=== PATIENT | female | born 1960 | race Caucasian/White ===

== ENCOUNTER 2020-08-24 12:45 | Outpatient (REF) | payer MEDICAID, SELFPAY ==
--- NOTE | 2020-08-24 12:54 | XR_ITS ---
EXAMINATION: HAND RADIOGRAPHS, BILATERAL CLINICAL INFORMATION: Bilateral hand pain. COMPARISON: No priors. TECHNIQUE: AP, oblique, and lateral radiographs of the bilateral hands was performed. FINDINGS: No focal soft tissue swelling or periarticular osteopenia is seen. There is no joint space narrowing, osteophytosis or chondrocalcinosis. No erosions are seen. Mild bilateral negative ulnar variance. XR/XR hand RT min 3V IMPRESSION: No radiographic evidence of inflammatory or erosive arthropathy involving the hands.
--- NOTE | 2020-08-24 12:54 | XR_ITS ---
EXAMINATION: HAND RADIOGRAPHS, BILATERAL CLINICAL INFORMATION: Bilateral hand pain. COMPARISON: No priors. TECHNIQUE: AP, oblique, and lateral radiographs of the bilateral hands was performed. FINDINGS: No focal soft tissue swelling or periarticular osteopenia is seen. There is no joint space narrowing, osteophytosis or chondrocalcinosis. No erosions are seen. Mild bilateral negative ulnar variance. XR/XR hand LT min 3V IMPRESSION: No radiographic evidence of inflammatory or erosive arthropathy involving the hands.
== END 2020-08-24 12:46 | disposition home or self-care (01) ==
LOC: HO.XRAY 12:45
PROVIDERS: PCP Internal Medicine; Visit Provider Internal Medicine
DX: M79.642 Pain in left hand (principal); M79.641 Pain in right hand
CPT/HCPCS: 73130

== ENCOUNTER 2020-11-09 14:11 | Outpatient (REF) | payer MEDICAID, SELFPAY ==
--- NOTE | ~2020-11-09 | XR_ITS ---
EXAMINATION: XR CHEST CLINICAL INFORMATION: Right hand pain COMPARISON: Previous chest x-ray and chest CT July 2017 TECHNIQUE: 2 views of the chest were obtained. FINDINGS: The cardiac and mediastinal contours are stable. The lungs are clear. There is no pleural effusion or pneumothorax. There are degenerative changes of the spine. XR/XR chest 2V IMPRESSION: Unremarkable examination.
[2020-11-09 15:27] LABS: MANUAL DIFF FLAG NO
[2020-11-09 15:31] LABS: Basophils Absolute Auto 0.1 X10*3/uL (0.0-0.2); Basophils Percent Auto 0.4 % (0-2); Eosinophils Absolute Auto 0.4 X10*3/uL (0.0-0.4); Eosinophils Percent Auto 2.9 % (0-4); Hematocrit 39.9 % (37-47); Hemoglobin 12.9 g/dl (12.0-16.0); Imm Gran Abs Auto 0.05 X10*3/uL (0.00-0.03); Imm Gran Pct Auto 0.4 % (0.0-0.4); Lymphocytes Absolute Auto 2.9 X10*3/uL (1.2-4.9); Lymphocytes Percent Auto 24.1 % (20-40); Mean Corpuscular HGB Conc 32.3 g/dl (31.0-35.0); Mean Corpuscular Hemoglobin 27.3 pg (27.0-33.0); Mean Corpuscular Volume 84.5 fL (80-98); Mean Platelet Volume 10.7 fL (9.4-12.3); Monocytes Absolute Auto 0.7 X10*3/uL (0.1-1.2); Monocytes Percent Auto 5.6 % (2-11); Neutrophils Absolute Auto 8.1 X10*3/uL (2.0-8.3); Neutrophils Percent Auto 66.6 % (45-73); Platelet Count 220 X10*3/uL (160-400); Red Blood Count 4.72 X10*6/uL (4.20-5.50); Red Cell Distribution Width 14.6 % (11.0-16.0); White Blood Count 12.2 X10*3/uL (4.8-10.8)
[2020-11-09 15:55] LABS: Alanine Aminotransferase 9 U/L (0-31); Albumin Level 3.8 g/dL (3.5-5.0); Alkaline Phosphatase 104 U/L (39-117); Anion Gap 13 (12-20); Aspartate Amino Transferase 11 U/L (5-31); Bilirubin Total 0.2 mg/dL (0.0-1.0); Blood Urea Nitrogen 23 mg/dL (9-16); C Reactive Protein 0.18 mg/dL (< or = 0.50); Calcium 9.1 mg/dL (8.4-10.2); Carbon Dioxide 25 mmol/L (22-29); Chloride 109 mmol/L (96-108); Estimated Glomerular Filt Rate > 60; Glucose Random 104 mg/dL (60-115); Potassium 3.7 mmol/L (3.3-5.1); Rheumatoid Factor 120.8 IU/mL (<15.0); Sodium 143 mmol/L (135-145); Total Protein 6.7 g/dL (6.5-8.0)
[2020-11-09 16:29] LABS: Erythrocyte Sedimentation Rate 15 MM/HR (0-20)
[2020-11-10 04:56] LABS: HBS Num1 0.16 mIU/mL (0-7.99); HBc Num1 0.05 S/CO (0.00-0.79); Hepatitis A Antibody IgM 0.16 Index (0-0.79); Hepatitis B Core Antibody Nonreactive (Nonreactive); ~HepC Num1 0.06 S/CO (0.00-0.79); ~Hepatitis A Antibody IgM Nonreactive (Nonreactive); ~Hepatitis B Surface Antibody NONREACTIVE (Nonreactive); ~Hepatitis C Antibody Nonreactive (Nonreactive)
[2020-11-10 04:57] LABS: HBsAGNum1 0.19 S/CO (0.00-0.99); Hepatitis B Surface Antigen Negative (Negative)
[2020-11-10 22:17] LABS: Cyclic Citrullinated Peptide >250 UNITS
[2020-11-11 19:16] LABS: TS Negative Control Passed; TS Panel A 0; TS Panel B 0; TS Positive Control Passed; TSpotTB Negative (SeeBelow)
== END 2020-11-09 14:12 | disposition home or self-care (01) ==
LOC: HO.LAB 14:11
PROVIDERS: PCP Internal Medicine; Visit Provider Student in an Organized Health Care Education/Training Program
DX: M79.641 Pain in right hand (principal); M79.642 Pain in left hand
CPT/HCPCS: 36415; 71046; 80053; 84443; 85025; 85652; 86140; 86200; 86431; 86481; 86704; 86706; 86709; 86803; 87340; 99202

== ENCOUNTER 2020-11-13 08:14 | Outpatient (REF) | payer MEDICAID, SELFPAY ==
--- NOTE | ~2020-11-13 | MM_ITS ---
EXAMINATION: MM SCREENING DIGITAL BREAST TOMOSYNTHESIS, BILATERAL CLINICAL INFORMATION: Screening. Asymptomatic. The lifetime risk of breast cancer based on the Tyrer-Cuzick Model is 6.9%. COMPARISON: Mammography: April 27, 2018 and studies dating back to May 13, 2012 TECHNIQUE: Digital breast tomosynthesis is performed in both the craniocaudal and mediolateral oblique views along with computer-aided detection (CAD). Synthesized 2D images are generated from the tomosynthesis. FINDINGS: The breasts are heterogeneously dense, which may obscure small masses (ACR BI-RADS breast composition Category c). There are no significant masses, abnormal calcifications, or other abnormalities. MM/MM tomosynthesis screening BI IMPRESSION: There are no significant changes from prior study. ASSESSMENT: BI-RADS 1: Negative RECOMMENDATION: Routine annual mammography screening. This patient's information was entered into a reminder system with a target due date for their next mammogram.
== END 2020-11-13 08:15 | disposition home or self-care (01) ==
LOC: HO.MAMMO 08:14
PROVIDERS: PCP Internal Medicine; Visit Provider Internal Medicine
DX: Z12.31 Encounter for screening mammogram for malignant neoplasm of breast (principal)
CPT/HCPCS: 77063; 77067

== ENCOUNTER → 2020-12-15 12:31 | Outpatient (BNVA) | payer MEDICAID, SELFPAY | PROVIDERS: Visit Provider Student in an Organized Health Care Education/Training Program | DX: M05.9 Rheumatoid arthritis with rheumatoid factor, unspecified (principal) | CPT/HCPCS: 99212 ==

== ENCOUNTER 2021-11-19 09:19 | Outpatient (REF) | payer MEDICAID, SELFPAY ==
--- NOTE | ~2021-11-19 | MM_ITS ---
EXAMINATION: MM SCREENING DIGITAL BREAST TOMOSYNTHESIS, BILATERAL CLINICAL INFORMATION: Screening. Asymptomatic. The lifetime risk of breast cancer based on the Tyrer-Cuzick Model is 6%. COMPARISON: Mammography: 11/13/2020, 04/27/2018, 03/12/2017 TECHNIQUE: Digital breast tomosynthesis is performed in both the craniocaudal and mediolateral oblique views along with computer-aided detection (CAD). Synthesized 2D images are generated from the tomosynthesis. Additional right CC view is provided. FINDINGS: There are scattered areas of fibroglandular density (ACR BI-RADS breast composition Category b). There are no significant masses, abnormal calcifications, or other abnormalities. Parenchymal pattern is similar to prior studies. There is no developing density or architectural abnormality. The axilla and skin contours are unremarkable. No significant changes. MM/MM tomosynthesis screening BI IMPRESSION: No mammographic evidence of malignancy. ASSESSMENT: BI-RADS 1: Negative RECOMMENDATION: Routine annual mammography screening. This patient's information was entered into a reminder system with a target due date for their next mammogram.
== END 2021-11-19 09:20 | disposition home or self-care (01) ==
LOC: HO.MAMMO 09:19
PROVIDERS: Visit Provider Internal Medicine
DX: Z12.31 Encounter for screening mammogram for malignant neoplasm of breast (principal)
CPT/HCPCS: 77063; 77067

== ENCOUNTER 2022-12-30 11:45 | Outpatient (REF) | payer MEDICAID, SELFPAY ==
--- NOTE | ~2022-12-30 | MM_ITS ---
EXAMINATION: MM SCREENING DIGITAL BREAST TOMOSYNTHESIS, BILATERAL CLINICAL INFORMATION: Screening. Asymptomatic. The lifetime risk of breast cancer based on the Tyrer-Cuzick Model is 7%. COMPARISON: Mammography: 11/19/2021, 11/13/2020, 04/27/2018 TECHNIQUE: Digital breast tomosynthesis is performed in both the craniocaudal and mediolateral oblique views along with computer-aided detection (CAD). Synthesized 2D images are generated from the tomosynthesis. FINDINGS: There are scattered areas of fibroglandular density (ACR BI-RADS breast composition Category b). There are no significant masses, abnormal calcifications, or other abnormalities. No architectural abnormality or developing density or significant change from prior studies. The axilla and skin contours are unremarkable. MM/MM tomosynthesis screening BI IMPRESSION: No mammographic evidence of malignancy. ASSESSMENT: BI-RADS 1: Negative RECOMMENDATION: Routine annual mammography screening. This patient's information was entered into a reminder system with a target due date for their next mammogram.
== END 2022-12-30 11:46 | disposition home or self-care (01) ==
LOC: HO.MAMMO 11:45
PROVIDERS: PCP Internal Medicine; Visit Provider Internal Medicine
DX: Z12.31 Encounter for screening mammogram for malignant neoplasm of breast (principal)
CPT/HCPCS: 77063; 77067

== ENCOUNTER 2023-04-08 10:26 | Outpatient (REF) | payer MEDICAID, SELFPAY ==
[2023-04-08 12:13] LABS: Cholesterol 223 mg/dL (<200); HDL Cholesterol 41 mg/dL (>40); LDL Cholesterol Calculated 153 mg/dL (<100); Triglycerides 148 mg/dL (<150)
== END 2023-04-08 10:27 | disposition home or self-care (01) ==
LOC: HO.HHCL 10:26
PROVIDERS: Visit Provider Internal Medicine Cardiovascular Disease
DX: E78.5 Hyperlipidemia, unspecified (principal)
CPT/HCPCS: 36415; 80061

== ENCOUNTER 2023-12-19 08:46 | Outpatient (REF) | payer MEDICAID, SELFPAY ==
[2023-12-19 12:58] LABS: Alanine Aminotransferase 14 U/L (0-31); Albumin Level 3.6 g/dL (3.5-5.0); Alkaline Phosphatase 97 U/L (39-117); Anion Gap 12 (12-20); Aspartate Amino Transferase 12 U/L (5-31); Bilirubin Total 0.4 mg/dL (0.0-1.0); Blood Urea Nitrogen 16 mg/dL (9-16); Calcium 9.1 mg/dL (8.4-10.2); Carbon Dioxide 26 mmol/L (22-29); Chloride 107 mmol/L (96-108); Cholesterol 160 mg/dL (<200); Estimated Glomerular Filt Rate > 60; Glucose Random 86 mg/dL (60-115); HDL Cholesterol 45 mg/dL (>40); LDL Cholesterol Calculated 100 mg/dL (<100); Potassium 3.4 mmol/L (3.3-5.1); Sodium 142 mmol/L (135-145); TSH reflex Free T4 0.49 uIU/mL (0.32-4.0); Triglycerides 78 mg/dL (<150)
== END 2023-12-19 08:47 | disposition home or self-care (01) ==
LOC: HO.HHCL 08:46
PROVIDERS: Visit Provider Internal Medicine
DX: E03.9 Hypothyroidism, unspecified (principal)
CPT/HCPCS: 36415; 80053; 80061; 84443

== ENCOUNTER 2024-01-05 11:43 | Outpatient (REF) | payer MEDICAID, SELFPAY | END 2024-01-05 11:44 | disposition home or self-care (01) | LOC: HO.MAMMO 11:43 | PROVIDERS: PCP Internal Medicine; Visit Provider Internal Medicine | DX: Z12.31 Encounter for screening mammogram for malignant neoplasm of breast (principal) | CPT/HCPCS: 77063; 77067 ==

== ENCOUNTER → 2024-01-05 11:45 | Outpatient (BNV) | payer MEDICAID, SELFPAY | PROVIDERS: PCP Internal Medicine; Visit Provider Radiology Diagnostic Radiology | DX: Z12.31 Encounter for screening mammogram for malignant neoplasm of breast (principal) | CPT/HCPCS: 77063; 77067 ==

== ENCOUNTER 2024-01-22 16:24 | Outpatient (REF) | payer MEDICAID, SELFPAY ==
--- NOTE | ~2024-01-22 | CT_ITS ---
EXAMINATION: CT CHEST WITHOUT CONTRAST CLINICAL INFORMATION: Pulmonary nodules, follow-up. COMPARISON: 08/15/2017. TECHNIQUE: Multidetector volumetric CT imaging of the chest was done. Axial MIP volume rendering provided. Sagittal and coronal reformatted images were obtained. This CT examination was performed using dose optimization techniques as appropriate, variously including the following: *Automated exposure control *Adjustment of mA and/or kV according to patient size (this includes techniques or standardized protocols for targeted exams where dose is matched to indication/reason for exam; i.e. extremities or head) *Use of iterative reconstruction technique DLP: 173 mGy-cm FINDINGS: REPLACER: No significant abnormalities. LUNGS: Mild bronchiectasis present in both lower lobes. No bronchial thickening. Right Lung: -There is increasing linear scarring or atelectasis in the right middle lobe. Mild bronchiectasis of the medial segment greater than lateral segment bronchi also noted. Findings are likely post infectious/inflammatory. -There are 2 adjacent 4 and 5 mm nodules in the posterior subpleural right lower lobe, unchanged. -There is a subpleural 5 mm nodule in the peripheral right lower lobe, unchanged. -No new nodules. Left Lung: -Stable 2 mm nodule in the peripheral left apex. -Stable 3 mm nodule in the superior segment left lower lobe left laterally. -Stable 5 mm nodule in the subpleural left lower lobe laterally (series 5, image 330). -2 stable calcified granulomata in the posterior basal left lower lobe. -No new nodules. MEDIASTINUM: -The thyroid was excluded from the exam. -Small amount of soft tissue in the anterior mediastinal fat is consistent with thymic remnant. -Aorta is minimally calcified and normal in caliber. Heart size is normal. No pericardial effusion. -No adenopathy is present in the mediastinum. -Small calcified lymph node left inferior hilum consistent with prior granulomatous disease. CORONARY ARTERY CALCIFICATION: Mild. PLEURA: There is no pleural effusion. No pleural mass or thickening. AXILLA: No abnormal lymphadenopathy is present. UPPER ABDOMEN: 11 mm segment 4A lesion in segment 7 subcapsular 16 mm hypoattenuating abnormalities again noted, consistent with known hemangiomas. 8 mm left adrenal nodule, unchanged. This is consistent with a stable adenoma. No additional abnormalities. OSSEOUS STRUCTURES: Mild degenerative spinal changes. Bone island in T9. CT/CT chest wo IV con IMPRESSION: 1. Stable pulmonary nodules in both lungs measuring up to 5 mm. No change and no new nodules. No further follow-up required. 2. Mildly increasing linear scarring/atelectasis with associated bronchiectasis in the right middle lobe. This is likely post inflammatory. 3. Mild bronchiectasis in both lower lobes without bronchial wall thickening. 4. Feathery appearance of the anterior mediastinal fat consistent with thymic hyperplasia. 5. Stable hemangiomas in segment 4A and segment 7 of the liver. 6. No tracheal abnormality on today's examination. Fleischner guidelines were followed.
== END 2024-01-22 16:25 | disposition home or self-care (01) ==
LOC: HO.CT 16:24
PROVIDERS: PCP Internal Medicine; Visit Provider Internal Medicine
DX: R91.8 Other nonspecific abnormal finding of lung field (principal)
CPT/HCPCS: 71250

== ENCOUNTER → 2024-01-22 16:26 | Outpatient (BNV) | payer MEDICAID, SELFPAY | PROVIDERS: PCP Internal Medicine; Visit Provider Radiology Diagnostic Radiology | DX: R91.8 Other nonspecific abnormal finding of lung field (principal) | CPT/HCPCS: 71250 ==

== ENCOUNTER 2024-02-09 11:52 | Outpatient (AMB) | payer MEDICAID, SELFPAY ==
--- NOTE | 2024-02-09 11:58 | A.OFFVIS_ITS ---
Vital Signs 02/09/24 12:08 Height 5 ft 1 in Weight 186 lb 8.177 oz BMI 35.2 BP 140/80 H Blood Pressure Location Rt brachial Position Sitting Pulse 84 Pulse Source Pulse Oximeter Pulse Oximetry (%) 96 Oxygen Delivery Method Room Air Intake Visit Reasons: Colonoscopy screening Intake Note: Nguyen presents to the office today for a scheduled colo s/p scrn CC; Pt reports previous hx of colo s/p approximately 10 years ago. Pt denies any sx or significant concerns at this time that would prompt the need for colo s/p. Pt is here for recall purposes only. Professor Of Environmental Science Required: Yes Professor Of Environmental Science Services: Professor Of Environmental Science Offered & Declined Information Interpreted: non-clinical & clinical Accompanied by: Daughter Allergies No Known Allergies [No Known Allergies*] Allergy (Verified 02/09/24 11:59) HPI HPI Colonoscopy screening: Details: 64 year old? female here today for pre colonoscopy screening.? Patient was sent to us by her PCP.? Last colonoscopy 12/22/2012 2 small polyps found, hyperplastic.? Patient denies any gastrointestinal symptoms in the past or at present.? Denies any personal or family history of gastrointestinal disease, colon polyps, or CRC.? Denies history of difficulty with sedation or anesthesia in the past.? Negative for history of sleep apnea.? Denies any history of cardiac, renal, pulmonary, or hepatic disease.?? No history of infectious? diseases like hepatitis A, B, C, HIV or tuberculosis.? Patient is not on any anticoagulation [facility] Medical History Menorrhagia Anemia Vitamin D deficiency Hypothyroidism Surgical History Hx of hysterectomy Hx of tubal ligation Hx of section Family History Brother HTN (hypertension) Asthma Mother Asthma Father CVD (cardiovascular disease) Social History Household Members: Spouse and Children Housing: Apartment Alcohol intake: never Cigarettes Per Day: 5 Years Smoked: 15 Review of Systems Const Denies weight gain and Denies weight loss ENT Reports no additional complaints, Denies dysphagia and Denies odynophagia Card Reports no additional complaints Resp Reports no additional complaints GI Denies abdominal pain, Denies belching, Denies melena, Denies bloating, Denies change in bowel habits, Denies dysphagia, Denies excessive flatus, Denies dyspepsia, Denies heartburn, Denies diarrhea, Denies loose stools, Denies nausea, Denies odynophagia and Denies vomiting Musc Reports no additional complaints Neuro Reports no additional complaints Psych Reports no additional complaints Endo Reports no additional complaints Physical Exam Vital Signs: Last Vital Signs Pulse 84 02/09/24 12:08 BP 140/80 H 02/09/24 12:08 Pulse Ox 96 02/09/24 12:08 Oxygen Delivery Method Room Air 02/09/24 12:08 BMI result Body Mass Index 35.2 Const General: healthy appearing and no acute distress Orientation/consciousness: patient oriented x3 Resp Effort & Inspection: normal respiratory effort, able to speak in complete sen tences, no tracheal deviation and symmetric chest movement Auscultation: clear to auscultation bilaterally Cardio Rate: regular rate GI Inspection: Yes normal to inspection, No distended and Yes obesity Palpation (GI): Soft to palpation, not firm, nontender and No hepatosplenomegaly present Auscultation: normal bowel sounds General: Yes no CVA tenderness Back/Spine/Pelvis Back: no CVA tenderness Skin General skin exam: elasticity normal, turgor normal and dry skin Neuro General: patient oriented x3 Psych Appearance: grossly normal Mental Status: mental status grossly normal Assessment & Plan Assessment & Plan (1) Hx of colonoscopy: Code(s): Z98.890 - Other specified postprocedural states (2) Hx of cosmetic surgery: Code(s): Z98.890 - Other specified postprocedural states Plan Patient denies any GI, cardiac or respiratory symptoms.? Denies any issues with anesthesia in the past.? Denies any history of sleep apnea.? No history infectious diseases in the past or present.? Not on any anticoagulation therapy.? No family or personal history of colon cancer or polyps.? Patient denies melena, hematochezia, unintentional weight loss or ribbon like stools.? Discussed at length the pre-procedure,? prep, diet & medications as well as what to expect prior, during and after the procedure.?? Stressed the importance of good bowel prep.? Recommended the use of Vaseline or Calmoseptine OTC & baby wipes with bowel movements to promote comfort.? ?Patient verbalizes understanding and agrees to plan of care.? She was given the opportunity to ask questions and all questions answered.? We will see her after the procedure.? Medications: New bisacodyl (Dulcolax (bisacodyl)) take 4 tabs at noon the day before your colonoscopy 20 mg (4 x 5 mg) PO ONCE 4 tabs 0RF 1 day Z12.11 - Encounter for screening for malignant neoplasm of colon polyethylene glycol 3350 (Miralax) As directed by gastroenterology department at [facility] 238 grams PO ONCE 238 grams 0RF Z12.11 - Encounter for screening for malignant neoplasm of colon Coding Level of Care Code New Pt Level 3 (10534) Diagnoses Hx of colonoscopy Z98.890 Hx of cosmetic surgery Z98.890 Time Spent (min) 40 Comment 30 minutes spent with patient and additional 10 minutes spent reviewing her records
[2024-02-09 12:08] VITALS: BP 140/80; PULSE 84; O2SAT 96; BMI 35.2
== END 2024-02-09 12:48 | disposition home or self-care (01) ==
PROVIDERS: PCP Internal Medicine; Visit Provider Nurse Practitioner Family
DX: Z98.890 Other specified postprocedural states (principal)
CPT/HCPCS: 99203

== ENCOUNTER → 2024-02-09 11:52 | Outpatient (BNVA) | payer MEDICAID, SELFPAY | PROVIDERS: PCP Internal Medicine; Visit Provider Nurse Practitioner Family | DX: Z01.818 Encounter for other preprocedural examination (principal) | CPT/HCPCS: 99212 ==

== ENCOUNTER 2024-03-29 08:36 | Outpatient (REF) | payer MEDICAID, SELFPAY | END 2024-03-29 08:37 | disposition home or self-care (01) | LOC: HO.HOSX 08:36 | PROVIDERS: Visit Provider Physician Assistant | DX: R91.8 Other nonspecific abnormal finding of lung field (principal); J47.9 Bronchiectasis, uncomplicated; F17.210 Nicotine dependence, cigarettes, uncomplicated; E32.0 Persistent hyperplasia of thymus | CPT/HCPCS: 99212 ==

== ENCOUNTER 2024-03-29 09:19 | Outpatient (AMB) | payer MEDICAID, SELFPAY ==
--- NOTE | 2024-03-29 09:03 | A.OFFVIS_ITS ---
Vital Signs 03/29/24 09:21 Height 5 ft 1 in Weight 186 lb 4.65 oz BMI 35.2 BP 150/88 H Blood Pressure Location Rt brachial Position Sitting Pulse 77 Pulse Source Pulse Oximeter Pulse Oximetry (%) 98 Oxygen Delivery Method Room Air Intake Visit Reasons: Pulmonary Nodules In Shop Service Technician Required: Yes In Shop Service Technician Language: Hydrogen Cell Tender Name: [id number] [place] Allergies No Known Allergies [No Known Allergies*] Allergy (Verified 03/29/24 09:26) HPI HPI Pulmonary Nodules: Details: Nguyen is a pleasant 64 year old female, currently less than 1/2 ppd smoker, with 20+ pack year history, with underlying pulmonary nodules, HTN and anemia. She was referred by PCP for pulmonary evaluation after recent Chest CT revealed mild bronchiectasis. She currently denies any respiratory symptoms and any recent URI. She reports multiple first degree family members with asthma. She denies any seasonal allergies. 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 She denies any autoimmune conditions, however prior records indicate RA, previously prescribed methotrexate. [facility] Medical History Menorrhagia Anemia Vitamin D deficiency Hypothyroidism Surgical History Hx of hysterectomy Hx of tubal ligation Hx of section Family History Brother HTN (hypertension) Asthma Mother Asthma Father CVD (cardiovascular disease) Social History (Updated 03/29/24 @ 09:54 by Hillary Guzman NP) Household Members: Spouse and Children Housing: Apartment Alcohol intake: never Patient Tobacco Use Status: Current everyday Tobacco user Tobacco use type: Cigarette Cigarettes Per Day: 10 Years Smoked: 20 Review of Systems Const Denies chills, Denies excessive sweating, Denies fever(s), Denies headache(s) and Denies night sweats Eyes Denies dry eyes, Denies irritation and Denies itchy eyes ENT Reports Normal hearing present and Denies headache(s) Card Denies chest pain, Denies chest pain at rest, Denies chest pain with activity, Denies claudication, Denies leg edema, Denies dyspnea, Denies dyspnea on exert ion, Denies orthopnea and Denies paroxysmal nocturnal dyspnea Resp Denies chest congestion, Denies cough, Denies excessive phlegm production, Denies pain on inspiration, Denies pain with cough, Denies dyspnea, Denies dyspnea on exertion, Denies stridor and Denies wheezing Musc Denies myalgias Neuro Reports Normal hearing present and Denies headache(s) Endo Denies excessive sweating Brett/Lymph Denies lymphadenopathy Aller/Immun Denies itchy eyes, Denies seasonal rhinorrhea and Denies wheezing Physical Exam Vital Signs: Last Vital Signs Pulse 77 03/29/24 09:21 BP 150/88 H 03/29/24 09:21 Pulse Ox 98 03/29/24 09:21 Oxygen Delivery Method Room Air 03/29/24 09:21 BMI result Body Mass Index 35.2 Const General: cooperative, healthy appearing, comfortable, no acute distress, well developed and alert Nutritional Appearance: obese Orientation/consciousness: patient oriented x3 Limitations: no limitations HEENT Head: Yes normal to inspection, Yes normocephalic and Yes atraumatic Ears: hearing grossly normal bilaterally and external ears normal Eyes General: appearance normal, both eyes and all related structures Eyelids: Yes eyelids normal Sclerae: sclerae normal EOM: EOMs intact bilaterally Neck Neck: Yes normal visual inspection and Yes no lymphadenopathy Lymphatic: no lymphadenopathy noted Chest Chest palpation & inspection: normal inspection of the chest Resp Effort & Inspection: normal respiratory effort, able to speak in complete sentences, no audible wheezes, no cough, no stridor, not tachypneic, no tripod positioning and no use of accessory muscles Auscultation: clear to auscultation bilaterally Cardio Jugular venous distension: no JVD Rate: regular rate Rhythm: regular rhythm Skin Other: warm, dry General skin exam: no rashes or lesions noted Neuro General: patient oriented x3 Cranial nerves: Yes Normal hearing present Cognition (Neuro): normal cognition Gait exam (Neuro): Normal gait present Extrem General: Yes normal to inspection, Yes capillary refill normal, Yes no clubbing, cyanosis or edema and Yes no pedal edema Psych Appearance: grossly normal and well kempt Speech and movement: Normal speech and movement present and Clear speech present Affect: normal affect Attitude: cooperative Thought process: Normal thought process present Thought content: Normal thought content present Insight: Good insight present (Psych) Judgement: Good judgement present (Psych) Results Reviewed Results Reviewed: [facility] [address] [place] [id number] Scan Report Signed Patient: Nguyen Frausto MR#: [id number] : 1960 Acct:[id number] Age/Sex: 64 / F ADM Date: 01/22/24 Loc: HO.CT Attending Dr: Roberto Mckinney MD Ordering Physician: Roberto Mckinney MD Date of Service: 01/22/24 Procedure(s): CT chest wo IV con Accession Number(s): [id number] cc: Roberto Mckinney MD~ EXAMINATION: CT CHEST WITHOUT CONTRAST CLINICAL INFORMATION: Pulmonary nodules, follow-up. COMPARISON: 08/15/2017. TECHNIQUE: Multidetector volumetric CT imaging of the chest was done. Axial MIP volume rendering provided. Sagittal and coronal reformatted images were obtained. This CT examination was performed using dose optimization techniques as appropriate, variously including the following: *Automated exposure control *Adjustment of mA and/or kV according to patient size (this includes techniques or standardized protocols for targeted exams where dose is matched to indication/reason for exam; i.e. extremities or head) *Use of iterative reconstruction technique DLP: 173 mGy-cm FINDINGS: BRANDING MACHINE TENDER: No significant abnormalities. LUNGS: Mild bronchiectasis present in both lower lobes. No bronchial thickening. Right Lung: -There is increasing linear scarring or atelectasis in the right middle lobe. Mild bronchiectasis of the medial segment greater than lateral segment bronchi also noted. Findings are likely post infectious/inflammatory. -There are 2 adjacent 4 and 5 mm nodules in the posterior subpleural right lower lobe, unchanged. -There is a subpleural 5 mm nodule in the peripheral right lower lobe, unchanged. -No new nodules. Left Lung: -Stable 2 mm nodule in the peripheral left apex. -Stable 3 mm nodule in the superior segment left lower lobe left laterally. -Stable 5 mm nodule in the subpleural left lower lobe laterally (series 5, image 330). -2 stable calcified granulomata in the posterior basal left lower lobe. -No new nodules. MEDIASTINUM: -The thyroid was excluded from the exam. -Small amount of soft tissue in the anterior mediastinal fat is consistent with thymic remnant. -Aorta is minimally calcified and normal in caliber. Heart size is normal. No pericardial effusion. -No adenopathy is present in the mediastinum. -Small calcified lymph node left inferior hilum consistent with prior granulomatous disease. CORONARY ARTERY CALCIFICATION: Mild. PLEURA: There is no pleural effusion. No pleural mass or thickening. AXILLA: No abnormal lymphadenopathy is present. UPPER ABDOMEN: 11 mm segment 4A lesion in segment 7 subcapsular 16 mm hypoattenuating abnormalities again noted, consistent with known hemangiomas. 8 mm left adrenal nodule, unchanged. This is consistent with a stable adenoma. No additional abnormalities. OSSEOUS STRUCTURES: Mild degenerative spinal changes. Bone island in T9. CT/CT chest wo IV con IMPRESSION: 1. Stable pulmonary nodules in both lungs measuring up to 5 mm. No change and no new nodules. No further follow-up required. 2. Mildly increasing linear scarring/atelectasis with associated bronchiectasis in the right middle lobe. This is likely post inflammatory. 3. Mild bronchiectasis in both lower lobes without bronchial wall thickening. 4. Feathery appearance of the anterior mediastinal fat consistent with thymic hyperplasia. 5. Stable hemangiomas in segment 4A and segment 7 of the liver. 6. No tracheal abnormality on today's examination. Fleischner guidelines were followed. 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 Of note, there were also multiple stale pulmonary nodules since 2017, however patient continues to smoke, so will enter repeat chest CT for next January. There was also findings of thymic hyperplasia, will enter referral to thoracic for further evaluation. At this time, she denies any respiratory symptoms. She is aware if symptoms develop to call office, as I explained she is at more risk for infection given the bronchiectasis. Smoking cessation discussed, however patient not ready to quit. All questions were answered and patient is in agreement of plan. Will follow up to review chest CT results or sooner if needed. 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
[2024-03-29 09:21] VITALS: BP 150/88; PULSE 77; O2SAT 98; BMI 35.2
== END 2024-03-29 09:42 | disposition home or self-care (01) ==
PROVIDERS: PCP Internal Medicine; Referring Provider Internal Medicine; Visit Provider Nurse Practitioner Family
DX: R91.8 Other nonspecific abnormal finding of lung field (principal); J47.9 Bronchiectasis, uncomplicated; F17.210 Nicotine dependence, cigarettes, uncomplicated; E32.0 Persistent hyperplasia of thymus
CPT/HCPCS: 99204

== ENCOUNTER 2024-04-27 09:56 | Outpatient (AMB) | payer MEDICAID, SELFPAY ==
--- NOTE | 2024-04-27 10:01 | A.OFFVIS_ITS ---
Vital Signs 04/27/24 10:09 Height 5 ft 1 in Weight 185 lb BMI 35.0 BP 153/85 H Blood Pressure Location Lt brachial Position Sitting Pulse 88 Intake Visit Reasons: Hyperplasia of thymus Intake Note: Patient new consult for Hyperplasia of thymus. Patient cc: horseness in the morning on and off, denies any concern for today Rotary Surface Grinder Required: Yes Accompanied by: Self / Same As Patient Allergies No Known Allergies [No Known Allergies*] Allergy (Verified 04/27/24 10:00) HPI Comments Details: Patient presents here for evaluation status post incidental finding of a thymic hyperplasia on the CT scan and workup for other issues. Patient denies any respiratory or chest fullness or symptoms. She has no chronic cough, hemoptysis, chest pain, wheezing. No myasthenia gravis type symptoms.. Chart was reviewed and patient evaluated [facility] Medical History Menorrhagia Anemia Vitamin D deficiency Hypothyroidism Surgical History Hx of hysterectomy Hx of tubal ligation Hx of section Family History Brother HTN (hypertension) Asthma Mother Asthma Father CVD (cardiovascular disease) Social History Household Members: Spouse and Children Housing: Apartment Alcohol intake: never Patient Tobacco Use Status: Current everyday Tobacco user Tobacco use type: Cigarette Cigarettes Per Day: 10 Years Smoked: 20 Physical Exam Vital Signs: Last Vital Signs Pulse 88 04/27/24 10:09 BP 153/85 H 04/27/24 10:09 BMI result Body Mass Index 35.0 Neck Other: No cervical, periclavicular, or axillary adenopathy bilaterally. 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 Further interventions studies will be directed by the results of the above-mentioned scan or should the patient develop any symptoms. All questions answered. Patient will see me as noted above or p.r.n. Coding Level of Care Code New Pt Level 4 (81063) Diagnoses Thymus hyperplasia E32.0
[2024-04-27 10:09] VITALS: BP 153/85; PULSE 88; BMI 35.0
== END 2024-04-27 10:18 | disposition home or self-care (01) ==
PROVIDERS: PCP Internal Medicine; Referring Provider Nurse Practitioner Family; Visit Provider Surgery
DX: E32.0 Persistent hyperplasia of thymus (principal)
CPT/HCPCS: 99204

== ENCOUNTER → 2024-04-27 09:56 | Outpatient (BNVA) | payer MEDICAID, SELFPAY | PROVIDERS: PCP Internal Medicine; Referring Provider Nurse Practitioner Family; Visit Provider Surgery | DX: E32.0 Persistent hyperplasia of thymus (principal) | CPT/HCPCS: 99202 ==

== ENCOUNTER 2024-04-28 10:40 | Outpatient (REF) | payer MEDICAID, SELFPAY ==
--- NOTE | ~2024-04-28 | US_ITS ---
EXAMINATION: US THYROID CLINICAL INFORMATION: Hypothyroidism. COMPARISON: None available. TECHNIQUE: Linear transducer grayscale and color Doppler examination with attention to the region of the thyroid. FINDINGS: SIZE: Measurements of the thyroid lobes and nodules are given in sagittal, anteroposterior and transverse dimensions respectively. Right Thyroid Lobe: 3.4 x 0.8 x 0.9 cm, volume 1.2 mL. Parenchyma: The gland echotexture is homogeneous. Thyroid vascularity is normal. Left Thyroid Lobe: 3.3 x 1.1 x 1.1 cm, volume 1.9 mL. Parenchyma: The gland echotexture is homogeneous. Thyroid vascularity is normal. Isthmus: 0.1 cm in maximum AP dimension. Estimated total number of nodules greater than or equal to 1 cm: 0. Latex Caster nodules are described as follows: 1. Location: Left mid. Size: 0.8 x 0.7 x 0.7 cm, volume 0.2 mL. Nodule characteristics: Composition: Cannot be determined (2). Echogenicity: Very hypoechoic (3). Shape: Not taller than wide (0). Margins: Irregular (2). Echogenic Foci: None (0). ACR TI-RADS total points: 7 ACR TI-RADS category: 5 NODES: No lymphadenopathy is seen in the tissue surrounding the thyroid gland. US/US thyroid IMPRESSION: Left midpole TR 5 nodule,followup ultrasound every year for 5 years if 0.5 to 0.9 cm in maximum dimension. ACR TI-RADS RECOMMENDATION REFERENCE: Ultrasound-guided fine-needle aspiration, followup ultrasound, no further follow up. * TR1 (0 point) and TR2 (2 points): No FNA or follow up. * TR3 (3 points): FNA if more than or equal to 2.5 cm in maximum dimension, followup ultrasound in 1, 3 and 5 years if 1.5 to 2.4 cm in maximum dimension. * TR4 (4-6 points): FNA if more than or equal to 1.5 cm in maximum dimension, followup ultrasound in 1, 2, 3 and 5 years if 1 to 1.4 cm in maximum dimension. * TR5 (more than or equal to 7 points): FNA if more than or equal to 1 cm in maximum dimension, followup ultrasound every year for 5 years if 0.5 to 0.9 cm in maximum dimension. * TR3, TR4 or TR5 nodules that are below the size threshold for followup receive no follow up. Electronically signed by: Amrita Pineda MD 05/18/2024 02:29 PM EDT RP
== END 2024-04-28 10:41 | disposition home or self-care (01) ==
LOC: HO.US 10:40
PROVIDERS: PCP Internal Medicine; Visit Provider Internal Medicine
DX: E03.9 Hypothyroidism, unspecified (principal)
CPT/HCPCS: 76536

== ENCOUNTER 2024-05-11 09:11 | Outpatient (REF) | payer MEDICAID, SELFPAY ==
--- NOTE | ~2024-05-11 | XR_ITS ---
EXAMINATION: XR SHOULDER, RIGHT CLINICAL INFORMATION: Right shoulder pain. COMPARISON: None available. TECHNIQUE: AP and scapular Y views of the right shoulder. FINDINGS: No acute fracture or dislocation. Mild glenohumeral joint space narrowing with small marginal osteophytes. No osseous erosion. No abnormal soft tissue calcification. Unremarkable acromioclavicular joint. XR/XR shoulder RT min 2V IMPRESSION: Mild glenohumeral osteoarthritis. Electronically signed by: Christian Hart MD 07/15/2024 09:25 AM MCKENZIE
== END 2024-05-11 09:12 | disposition home or self-care (01) ==
LOC: HO.HOSX 09:11
PROVIDERS: PCP Internal Medicine; Visit Provider Orthopaedic Surgery
DX: M25.511 Pain in right shoulder (principal)
CPT/HCPCS: 20610; 73030; 99202; J1010

== ENCOUNTER 2024-05-11 10:13 | Outpatient (AMB) | payer MEDICAID, SELFPAY ==
[2024-05-11 10:12] VITALS: BMI 35.0
--- NOTE | 2024-05-11 10:12 | MHC.OFFVIS ---
Vital Signs 05/11/24 10:12 Height 5 ft 1 in Weight 185 lb BMI 35.0 Intake Visit Reasons: Right shoulder pain Intake Note: Nguyen is a 64-year-old female who presents with right shoulder pain. She describes her pain as sharp in nature. Most of the pain is along the lateral aspect of her right shoulder. Her pain has gotten worse over the last few months in spite of continued non operative treatments. She has done physical therapy exercises which aggravated her pain. She has also tried Tylenol and anti-inflammatory medicines which gave her minimal relief. Biodiesel Process Control Technician Required: Yes Biodiesel Process Control Technician Language: Pyrometer Operator Name: Santiago [id number] Allergies No Known Allergies [No Known Allergies*] Allergy (Verified 05/11/24 10:15) Medication List - Last Reconciled 05/12/24 by Delbert Ramon MD bisacodyl (Dulcolax (bisacodyl)) 20 mg (4 x 5 mg) PO ONCE 1 day hydrochlorothiazide 25 mg PO DAILY levothyroxine (Levoxyl) 100 mcg PO DAILY levothyroxine 100 mcg PO QAM polyethylene glycol 3350 (Miralax) 238 grams PO ONCE rosuvastatin 10 mg PO DAILY PFSH Medical History Menorrhagia Anemia Vitamin D deficiency Hypothyroidism Surgical History Hx of hysterectomy Hx of tubal ligation Hx of section Family History Brother HTN (hypertension) Asthma Mother Asthma Father CVD (cardiovascular disease) Social History Household Members: Spouse and Children Housing: Apartment Alcohol intake: never Patient Tobacco Use Status: Current everyday Tobacco user Tobacco use type: Cigarette Cigarettes Per Day: 10 Years Smoked: 20 Physical Exam Vital Signs: BMI result Body Mass Index 35.0 Const Other: Well-nourished well-developed very friendly female awake alert and oriented x3 in no acute distress Extrem Other: Bilateral upper extremity examination shows good capillary refill, no skin lesions noted, normal sensation light touch Right shoulder examination shows slightly decreased range of motion when compared to her left shoulder, 4+ out of 5 strength with supraspinatus testing, positive impingement signs, tenderness over her acromioclavicular joint, no instability Office Procedures Joint Injection/Aspiration Joint Injection/Aspiration Primary Site: right shoulder Prep: site was prepped using aseptic technique Injected: 40 mg of, DepoMedrol and 1% plain lidocaine Procedure: The patient tolerated the procedure well Coding - Large joint Procedure code (CPT) selection complete Results Reviewed Results Reviewed: X-rays of the patient's right shoulder show severe acromioclavicular joint narrowing, a type 2 acromion, no acute bony abnormalities Assessment & Plan Assessment & Plan (1) Right shoulder pain: Code(s): M25.511 - Pain in right shoulder Category: Medical Plan Ms. Frausto presents with right shoulder pain due to impingement syndrome and acromioclavicular joint arthritis. I had a lengthy discussion with the patient regarding the treatment options. The risks and benefits of a right shoulder cortisone injection were discussed at length with the patient. The patient wished to proceed. She tolerated the injection well. She will continue with her home stretching program to prevent stiffness. She will contact me prior to her follow-up appointment in 2 months should any questions or concerns arise. Feel free to call me at any time should questions regarding her orthopedic management arise. Thank you very much for asking me see this very friendly patient. I spent 21 minutes in reviewing the patient's records and imaging studies, seeing the patient and documenting in the medical record. Orders: Orders AMB Joint Injection/Aspiration 05/11/24 Delbert Ramon MD M25.511 - Pain in right shoulder XR shoulder RT min 2V 03/29/24 Rome Guadarrama PA-C M25.511 - Pain in right shoulder XR shoulder RT min 2V 05/11/24 Delbert Ramon MD M25.511 - Pain in right shoulder Coding Level of Care Code New Pt Level 3 (60934) Complex EM visit Add On G2211 Diagnoses Right shoulder pain M25.511 CPT Codes Coding - 87681 Large joint: 56258 - Large joint ([id number])
== END 2024-05-11 10:47 | disposition home or self-care (01) ==
PROVIDERS: PCP Internal Medicine; Visit Provider Orthopaedic Surgery
DX: M25.511 Pain in right shoulder (principal)
CPT/HCPCS: 20610; 99203

== ENCOUNTER 2024-07-14 07:45 | Outpatient (REF) | payer MEDICAID, SELFPAY ==
--- NOTE | ~2024-07-14 | CT_ITS ---
EXAMINATION: CT HEAD WITHOUT CONTRAST CLINICAL INFORMATION: Persistent headaches. COMPARISON: None available. TECHNIQUE: Contiguous axial imaging was performed from the skull base to vertex without intravenous administration of contrast. This CT examination was performed using dose optimization techniques as appropriate, variously including the following: *Automated exposure control *Adjustment of mA and/or kV according to patient size (this includes techniques or standardized protocols for targeted exams where dose is matched to indication/reason for exam; i.e. extremities or head) *Use of iterative reconstruction technique DLP: 856 mGy-cm FINDINGS: No acute intracranial hemorrhage. No mass effect or midline shift. No parenchymal lesion. The alexandre-white differentiation is maintained. No extra-axial fluid collection. The ventricles and sulci are unremarkable. The basal cisterns are patent. The calvarium is intact. The visualized paranasal sinuses and mastoid air cells are clear. CT/CT head/brain wo IV con IMPRESSION: No acute intracranial hemorrhage or mass effect. Electronically signed by: Christian Hart MD 07/15/2024 09:24 AM MCKENZIE
== END 2024-07-14 07:46 | disposition home or self-care (01) ==
LOC: HO.CT 07:45
PROVIDERS: PCP Internal Medicine; Visit Provider Internal Medicine
DX: R51.9 Headache, unspecified (principal)
CPT/HCPCS: 70450

== ENCOUNTER 2024-10-13 08:52 | Outpatient (REF) | payer MEDICAID, SELFPAY ==
--- OUTSIDE RECORDS SUMMARY | 2024-10-13 09:40 | XMS_ITS | Encounter Summary ---
Author Organization [employer] [facility] Address [address] [facility] 7t [place] [address] Care Team Providers Care Blood Bank Attendant Name Role Phone Roberto Koehler MD Primary Care Provide r Reason for Visit * Reason Comments Med Refill Encounter Details Date Type Department Care Team ([facility] Contact Info) Description 09/03/2022 Refill [facility] [address] [place] [phone] Reina Ag MD [address] [place], [place] [phone] Social History Tobacco Use Types Packs/Day Years [...] Upcoming Encounters Date Type Department Care Team ([facility] Contact Info) Description 12/23/2024 10:30 AM EDT Office Visit [facility] [address] [place] [phone] Roberto Koehler MD [address] [place], [place] [phone] documented as of this encounter Visit Diagnoses Not on filedocumented in this encounter Care Teams Blood Bank Attendant Relationship Specialty Start Date End Date Roberto Koehler MD [address] [place] [phone] PCP - General Internal Medicine 06/29/14 documented as of this encounter
--- OUTSIDE RECORDS SUMMARY | 2024-10-13 09:40 | XMS_ITS | Encounter Summary ---
Author Organization [employer] Address [address] [facility] 7t [place] [address] Care Team Providers Care Tractor Operator Battery Name Role Phone Roberto Koehler MD Primary Care Provide r Reason for Visit * Reason Comments Med Refill Encounter Details Date Type Department Care Team ([facility] Contact Info) Description 08/23/2024 Refill [facility] [address] [place], [place] [phone] Roberto Koehler MD [address] [place], [place] [phone] Primary hypertension Social History Tobacco Use Types [...] 10:30 AM EDT Office Visit [facility] [address] [place] [address] Roberto Koehler MD [address] [place] [address] documented as of this encounter Visit Diagnoses Diagnosis Primary hypertension Unspecified essential hypertension documented in this encounter Additional Health Concerns Assessment Noted Time PHQ-9 Depression Total Score: 1 12/18/19 24 10:46 AM EDT documented as of this encounter Care Teams Tractor Operator Battery Relationship Specialty Start Date End Date Roberto Koehler MD [address] [place] [address] PCP - General Internal Medicine 06/29/14 documented as of this encounter
--- OUTSIDE RECORDS SUMMARY | 2024-10-13 09:40 | XMS_ITS | Encounter Summary ---
Author Organization [employer] Address [address] [facility] 7t [place] [address] Care Team Providers Care Asphalt Spreader Operator Name Role Phone Roberto Koehler MD Primary Care Provide r Encounter Details Date Type Department Care Team ([facility] Contact Info) Description 12/25/2022 Abstract [facility] [address] [place], [place] [phone] Roberto Koehler MD [address] [place], [place] [phone] Social History Tobacco Use Types Packs/Day Years [...] Description 12/23/2024 10:30 AM EDT Office Visit [facility] [address] [place] [address] Roberto Koehler MD [address] [place], [place] [phone] documented as of this encounter Procedures Procedure Name Priority Date/Time Associated Diagnosis Comments COLONOSCOPY Routine 12/22/2012 documented in this encounter Results * Hm Colonoscopy (12/22/2012) Colonoscopy Normal Normal 12/22/2012 Alexa Carmen Ng - 12/22/2012 3:04 PM EDT Recommended 10 year follow up Historical Provider HEALTH MAINTENANCE Final Result documented in this encounter Visit Diagnoses Not on filedocumented in this encounter Care Teams Asphalt Spreader Operator Relationship Specialty Start Date End Date Roberto Koehler MD [address] [place] [phone] PCP - General Internal Medicine 06/29/14 documented as of this encounter
--- OUTSIDE RECORDS SUMMARY | 2024-10-13 09:40 | XMS_ITS | Encounter Summary ---
Author Organization [employer] Address [address] [facility] 7t [place] [address] Care Team Providers Care Meter Repair Shop Supervisor Name Role Phone Roberto Koehler MD Primary Care Provide r Reason for Visit * Reason Comments Med Refill Encounter Details Date Type Department Care Team ([facility] Contact Info) Description 12/29/2023 Refill [facility] [address] [place], [place] [phone] Roberto Koehler MD [address] [place], [place] [phone] Rash Social History Tobacco Use Types Packs/Day [...] 12/23/2024 10:30 AM EDT Office Visit [facility] [address] [place] [address] Roberto Koehler MD [address] [place] [address] documented as of this encounter Visit Diagnoses Diagnosis Rash Rash and other nonspecific skin eruption documented in this encounter Additional Health Concerns Assessment Noted Time PHQ-9 Depression Total Score: 1 12/18/19 24 10:46 AM EDT documented as of this encounter Care Teams Meter Repair Shop Supervisor Relationship Specialty Start Date End Date Roberto Koehler MD [address] [place] [address] PCP - General Internal Medicine 06/29/14 documented as of this encounter
--- OUTSIDE RECORDS SUMMARY | 2024-10-13 09:40 | XMS_ITS | Encounter Summary ---
Author Organization [employer] Address [address] [facility] 7t [place] [address] Care Team Providers Care Hand Stamper Name Role Phone Roberto Koehler MD Primary Care Provide r Encounter Details Date Type Department Care Team (Latest Contact Info) Description 09/16/2024 9:15 AM EST Office Visit [facility] [address] [place], [place] [phone] Roberto Koehler MD [address] [place], [place] [phone] Primary hypertension (Primary Dx); Acute nonintractable headache, [...] daily and Lisinopril 10 mg po daily [facility] 12/19/2023 Normal Plan: Increase Lisinopril to [...] Description 12/23/2024 10:30 AM EDT Office Visit [facility] [address] [place] [address] Roberto Koehler MD [address] [place] [address] Scheduled Orders Name Type Priority Associated Diagnoses [...] documented as of this encounter Care Teams Hand Stamper Relationship Specialty Start Date End Date Roberto Koehler MD [address] [place] [address] PCP - General Internal Medicine 06/29/14 documented as of this encounter
--- OUTSIDE RECORDS SUMMARY | 2024-10-13 09:40 | XMS_ITS | Encounter Summary ---
Author Organization [employer] Address [address] [facility] 7t [place] [address] Care Team Providers Care Lisw Name Role Phone Roberto Koehler MD Primary [...] Description 12/23/2024 10:30 AM EDT Office Visit [facility] [address] [place] [address] Roberto Koehler MD [address] [place] [address] documented as of this encounter Visit Diagnoses Not on filedocumented in this encounter Additional Health Concerns Assessment Noted Time PHQ-9 Depression Total Score: 1 12/18/19 24 10:46 AM EDT documented as of this encounter Care Teams Lisw Relationship Specialty Start Date End Date Roberto Koehler MD [address] [place] [address] PCP - General Internal Medicine 06/29/14 documented as of this encounter
--- OUTSIDE RECORDS SUMMARY | 2024-10-13 09:40 | XMS_ITS | Clinical Summary ---
Author Organization [employer] Address [address] [facility] 7t [place] [address] Care Team Providers Care Shaft Mechanic Name Role Phone Roberto Koehler MD Primary [...] super infection. Pt denies known infestation. Had assembler fitter at her house Advise avoid itching if possible, responded to steroid cream. Missed dermatology appointment Assessment & Plan (12/29/2023 11:01 AM EDT): History, distribution and exam consistent with bed bug bites. No evidence of super infection. Pt denies known infestation. Advise avoid itching if possible, trial of steroid cream. Looks for evidence of infestation and speak to [facility] about fumigation. She has derm appointment referral from 12/18/23. Return if symptoms worsen or do not improve. She agrees with the plan. Pulmonary nodules 12/18/2023 Assessment & Plan (04/01/2024 9:12 AM EDT): Pt here for a follow up Pt had an incidental finding on Chest x-ray that was abnormal reason why a Chest CT was performed, 2017 CT showed: Left hilar yosi calcifications are [...] hyperplasia. Pt was seen by Dr Springer Systems Manager in 10/2017 and he recommended f/u in [...] reason why a Chest CT was performed, 2017 CT showed: Left hilar yosi calcifications are [...] hyperplasia. Pt was seen by Dr Springer Systems Manager in 10/2017 and he recommended f/u in 6 months, it does not seem like patient followed up Chest CT result pending done 01/22/2024 Assessment & Plan (12/18/2023 11:03 AM EDT): Pt had an incidental finding on Chest x-ray that was abnormal reason why a Chest CT was performed, 2017 CT showed: Left hilar yosi calcifications are [...] hyperplasia. 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 [facility] care 12/18/2023 Assessment & Plan (04/01/2024 9:14 AM EDT): Mammogram: 01/18/2024 Normal Pap Smear: s/p NITZA and BSOO 05/2014 Dr Lea Colonoscopy: 12/22/12 normal (one hyperplastic polyp), repeat in 10 years. Pt was seen by Amanda Jennings 01/2024 who is scheduling a follow [...] Likely benign, Will refer to [facility] Derm clinic given that pt reports is increasing in size Primary hypertension 08/01/2023 Assessment & Plan (09/16/2024 9:37 AM EST): Here for a follow up BP elevated On hydrochlorothiazide 25 mg po daily and Lisinopril 10 mg po daily [facility] 12/19/2023 Normal Plan: Increase Lisinopril to 20 mg po daily Follow up 4 months Assessment & Plan (06/17/2024 11:08 AM EDT): Here for a follow up BP elevated On hydrochlorothiazide 25 mg po daily [facility] 12/19/2023 Normal Plan: Add Lisinopril 10 mg po daily Follow up 4 months Assessment & Plan (04/01/2024 10:06 AM EDT): Here for a follow up BP uncontrolled On hydrochlorothiazide 25 mg po daily [facility] 12/19/2023 Normal Plan: Continue with current regimen Follow up 4 months Assessment & Plan (01/27/2024 3:24 PM EDT): Here for a follow up BP uncontrolled On hydrochlorothiazide 12.5 mg po daily [facility] 12/19/2023 Normal Plan: Increase hydrochlorothiazide to 25 [...] 9:15 AM EST Office Visit [facility] MEDICINE [address] [place] [address] Roberto Koehler MD Primary hypertension (Primary Dx); Acute nonintractable headache, unspecified headache type; Rash; Seasonal allergies 09/16/2024 Travel 09/07/2024 Refill [facility] MEDICINE [address] [place] [address] Roberto Koehler MD Acquired hypothyroidism 09/03/2024 Telephone [facility] [address] [place] [phone] Roberto Koehler MD Chart Prep 08/23/2024 Refill [facility] MED[facility] [address] [place] [address] Roberto Koehler MD Primary hypertension 08/23/2024 Refill [facility] [address] [place] [address] Roberto Koehler MD Primary hypertension 08/20/2024 11:30 AM EST Clinical Support [facility] [address] [place] [address] Bebe Valladares LPN Exposure to confirmed case of COVID-19 (Primary Dx) 08/20/2024 Travel 08/13/2024 10:15 AM EST Office Visit [facility] MEDICINE [address] [place] [address] Glen Mccoy MD Sebaceous gland hyperplasia (Primary Dx) 08/13/2024 Travel 07/24/2024 Refill [facility] [address] [place] [address] Harper Leiva FNP from Last 3 Months Immunizations Name Administration [...] 10:30 AM EDT Office Visit [facility] MEDICINE [address] [place], [place] [phone] Roberto Koehler MD [address] [place], [place] [phone] Health Maintenance Due Date Last Done Comments [...] 12/22/2012 Colorectal Cancer Screening 12/22/2022 COVID-19 Vaccine () 04/18/2024 06/25/2022, 01/10/2021, 12/13/2020 Depression Screening 12/17/2024 12/18/2023, [...] EST Narrative 07/15/2024 9:27 AM EST ? [facility] ?[address] ?[place] [address] ? CT Scan Report ? Signed ? Patient: Jett,Nguyen A ?MR#: [id number] ?? [id number] ? : 1960 ?Acct:[id number] ? Age/Sex: 64 / F ?ADM Date: 11/27/24 ? Loc: HO.CT ? Attending Dr: Roberto Mckinney MD ? Ordering Physician: Roberto Mckinney MD ?? Date of Service: 07/14/24 ?? Procedure(s): CT head/brain wo IV con ?? Accession Number(s): [id number] ? cc: Roberto Mckinney MD ? EXAMINATION: [...] DD/ 0753 ? TD/TT: 07/14/24 0812 ? It Program Auditor: SR ? Procedure Note Blessing Charlton - 07/15/2024 [place] [id number] [facility] [place] [address] CT Scan Report Signed Patient: Jett,Nguyen AMR#: [id number] : 1960cct:[id number] Age/Sex: 64 / FADM Date: 07/14/24 Loc: HO.CT Attending Dr: Roberto Mckinney MD Ordering Physician: Roberto Mckinney MD Date of Service: 07/14/24 Procedure(s): CT head/brain wo IV con Accession Number(s): [id number] cc: Roberto Mckinney MD EXAMINATION: CT HEAD [...] by: Christian Hart MD 07/15/2024 09:24 AM [facility] Dictated By: Christian Hart MD Signed By: <Electronically signed by Christian Hart MD in OV> 07/15/24923 DD/ 0753 TD/TT: 07/14/24 0812 It Program Auditor: us Roberto Oquendo MD IMG CT PROCEDURES Fin al Result * BI Mammogram Screening Tomosynthesis Bilateral (01/05/2024 12:25 PM EDT) Anatomical Region Laterality Modality Breast Bilateral Mammography 01/05/2024 12:2 5 PM EDT Narrative 01/18/2024 7:19 PM EDT ? [facility] ? [address] ?[place] [address] ? Mammography Report ? Signed ? Patient: Jett,Nguyen A ?MR#: [id number] ?? [id number] ? : 1960 ?Acct:[id number] ? Age/Sex: 63 / F ?ADM Date: 01/05/24 ? Loc: HO.MAMMO ? Attending Dr: Roberto Mckinney MD ? Ordering Physician: Roberto Mckinney MD ?Resu ?? lts: 1Negative ? Date of Service: 01/05/24 ?Follow Up: 1 Year From Orig ?? inal Mammogram ? Procedure(s): MM tomosynthesis screening BI ?? Accession Number(s): [id number] ? cc: Roberto Mckinney MD ? EXAMINATION: ?? MM SCREENING DIGITAL BREAST TOMOSYNTHESIS, BILATERAL ? CLINICAL INFORMATION: ? Screening. Asymptomatic. ? COMPARISON: ?? Mammography: This study is compared with prior exams dating back to ?? 2017. ? TECHNIQUE: ?? Digital breast tomosynthesis is [...] by Kimberly Calix MD in OV> ? 01/18/241914 ? DD/ 1225 ? TD/TT: ? It Program Auditor: ? Procedure Note Blessing Charlton - 01/18/2024 [facility] [address] [place] [address] Mammography Report Signed Patient: Nguyen Frausto AMR#: [id number] : 2Acct:[id number] Age/Sex: 63 / FADM Date: 01/05/24 Loc: HO.MAMMO Attending Dr: Roberto Mckinney MD Ordering Physician: Roberto Mckinney MDResu lts: 1Negative Date of Service: 01/05/24Follow Up: 1 Year From Orig inal Mammogram Procedure(s): MM tomosynthesis screening BI Accession Number(s): [id number] cc: Roberto Mckinney MD EXAMINATION: MM SCREENING [...] signed by Kimberly Calix MD in OV> 01/18/241914 DD/ TD/TT: It Program Auditor: Roberto Oquendo MD IMG BI PROCEDURES Wes kacie Result - Final * (ABNORMAL) Lipid Panel, Standard (12/19/2023 8:54 AM EDT) Triglycerides 78 <150 mg/dL [facility] Comment:Desirable Triglyceri de: less than 150 mg/dLBorderline High Triglyceride 150-199 mg/dLHigh Triglyceride: 200-499 mg/dLVery High Triglyceride: greater than or equal to 5OO mg/dL Cholesterol 160 <200 mg/dL [facility] Comment:Desirable Cholestero l: less than 200 mg/dLBorderline High Cholesterol: 200-239 mg/dLHigh Cholesterol: greater than 239 mg/dL LDL Cholesterol Calculated 100(H) <100 mg/dL [facility] Comment:Desirable LDL: less than 100 mg/dLNear Optimal/Above Optimal LDL: 110- 129 mg/dLBorderline High LDL: 130-159 mg/dLHigh LDL: 160-189 mg/dLVery High LDL: greater than or equal to 190 mg/dL HDL Cholesterol 45 >40 mg/dL [facility] Comment:Desirable HDL: great er than 40 mg/dL Note: This HDL assay may give artificially low results in patients with liver disease. Blood Venous blood specimen / Unknown 12/19/2023 8:54 AM EDT 12/19/2023 11:28 AM EDT Roberto Oquendo MD LAB BLOOD ORDERABLES Final Result Performing Organization Address City/[facility]/ZIP Co de Phone Number [facility] [address] [place] [address] [phone] * HEPATITIS C ANTIBODY RFLX (10/21/2019 8:30 AM EST) [facility] HEPATITIS C ANTIBODY NONREACTIVE NON[facility] Comment: Antibodies to HCV not detected; does not exclude early acute HCV infection. 10/21/2019 8:30 AM EST Historical Provider HISTORICAL/NON ORDERABLE LABS Final Result Performing Organization Address [facility] Phone Number [facility] [address] [place] [address], * HIV AB/AG (10/21/2019 8:30 AM EST) [facility] HIV AG/AB NONREACTIVE NR FOUNDATI ON LAB [...] detection of this assay. ?? The [employer] HIV Ag/Ab Combo assay result and supplemental assay results should be interpreted in conjunction with the patient's clinical presentation, history and other laboratory results. ??If the results are inconsistent with clinical evidence, additional testing is suggested to confirm the result. 10/21/2019 8:30 AM EST Historical Provider HISTORICAL/NON ORDERABLE LABS Final Result Performing Organization Address [facility] Co de Phone Number [facility] [address] [place] [address], * Hm Colonoscopy (12/22/2012) [facility] Colonoscopy Normal Normal 12/22/2012 Carmen Martínez - 12/22/2012 3:04 PM EDT Recommended 10 year follow up Historical Provider HEALTH MAINTENANCE Final Result from Last 3 Months or Most Recently Relevant to Health Maintenance Insurance [facility] C3 HSN PARTIAL Care Teams Shaft Mechanic Relationship Specialty Start Date End Date Roberto Koehler MD [address] [place] [phone] PCP - General Internal Medicine 06/29/14
--- OUTSIDE RECORDS SUMMARY | 2024-10-13 09:40 | XMS_ITS | Encounter Summary ---
Author Organization [employer] Address [address] [facility] 7t [place] [address] Care Team Providers Care Labor Relations Analyst Name Role Phone Roberto Koehler MD Primary Care Provide r Reason for Visit * Reason Onset Date Comments Med Refill 09/09/2023 Encounter Details Date Type Department Care Team ([facility] st Contact Info) Description 09/09/2023 Telephone [facility] [address] [place] [address] [phone] Roberto Koehler MD [address] [place], [place] [phone] Med Refill Social History Tobacco Use Types [...] to: [id number] - [place], [place] - [address] [place] [address] documented in this encounter Plan of Treatment Upcoming Encounters Date Type Department Care Team (Late st Contact Info) Description 12/23/2024 10:30 AM EDT Office Visit [facility] [address] [place] [address] Roberto Koehler MD [address] [place] [address] documented as of this encounter Visit Diagnoses Not on filedocumented in this encounter Care Teams Labor Relations Analyst Relationship Specialty Start Date End Date Roberto Koehler MD [address] [place] [address] [phone] PCP - General Internal Medicine 06/29/14 documented as of this encounter
[2024-10-13 11:46] LABS: Anion Gap 11 (12-20); Blood Urea Nitrogen 17 mg/dL (9-16); Carbon Dioxide 28 mmol/L (22-29); Chloride 108 mmol/L (96-108); Estimated Glomerular Filt Rate > 60; Glucose Random 79 mg/dL (60-115); Potassium 3.3 mmol/L (3.3-5.1); Sodium 144 mmol/L (135-145)
== END 2024-10-13 08:53 | disposition home or self-care (01) ==
LOC: HO.HHCL 08:52
PROVIDERS: Visit Provider Internal Medicine
DX: I10 Essential (primary) hypertension (principal)
CPT/HCPCS: 36415; 80048

== ENCOUNTER 2024-10-18 10:33 | Outpatient (REF) | payer MEDICAID, SELFPAY ==
--- NOTE | ~2024-10-18 | CT_ITS ---
CLINICAL HISTORY: THYMUS HYPERPLASIA CT chest with contrast Comparison: CT/MS/SR - CT CHEST WO IV CON - 01/22/24 16:[address]/MS/SR - CHEST WITH IV CONTRAST [id number] - 08/15/17 11:42 EST Findings: Current lung detail images degraded from respiratory motion artifact. Increased patchy air trapping and mosaic lung attenuation suggesting sequela of small airway disease either obstructive or reactive. Linear parenchymal changes in the right middle lobe suggesting mild atelectasis or chronic postinflammatory scarring. No consolidation. Small bilateral pulmonary nodules in the 4-6 mm range all appear present on priors without new or progressive nodule. Stable granuloma in the superior segment right lower lobe and posterior left lower lobe. Mild increased attenuation in the anterior mediastinal fat with several small nodules unchanged from 2017 study without confluent mass or alteration of the mediastinal contour. No nodules within the included thyroid gland. No enlarged mediastinal or hilar lymph nodes. Stable calcified/granulomatous left hilar node. Normal caliber thoracic aorta and pulmonary trunk. No central pulmonary embolism. Mild cardiomegaly. No pericardial effusion. Mild coronary artery calcification. Esophagus within normal limits. No hiatal hernia. 18 mm subcapsular hypodensity liver segment VII stable to 2017 study and most compatible with a hemangioma. The small focus of subcapsular fat along the falciform ligament is also stable, a common site for such. 12 mm left adrenal nodule, not significantly changed from priors, most likely an adenoma Bones intact. Soft tissues unremarkable. Impression: Stable soft tissue changes in the anterior mediastinal compatible with residual thymic tissue. Stable small bilateral pulmonary nodules. No new nodule. More conspicuous patchy air trapping suggesting underlying small airway disease. Stable hepatic hemangioma and left adrenal adenoma. This document has been electronically signed by: Santos Lopez MD on 10/19/2024 10:42:52
[2024-10-18] MEDS: iohexoL 350 MG/ML 100 ML INFUS..BTL IV (11:20)
--- OUTSIDE RECORDS SUMMARY | 2024-10-18 12:19 | XMS_ITS | Encounter Summary ---
Author Organization [employer] [facility] Address [address] [facility] 7t [place] [address] Care Team Providers Care Scallop Cutter Name Role Phone Roberto Koehler MD Primary Care Provide r Reason for Visit * Reason Comments Med Refill Encounter Details Date Type Department Care Team ([facility] Contact Info) Description 09/03/2022 Refill [facility] [address] [place] [address] [phone] Reina Ag MD [address] [place], [place] [phone] Social History Tobacco Use Types Packs/Day Years [...] Upcoming Encounters Date Type Department Care Team ([facility] Contact Info) Description 12/23/2024 10:30 AM EDT Office Visit [facility] [address] [place] [address] [phone] Roberto Koehler MD [address] [place], [place] [phone] documented as of this encounter Visit Diagnoses Not on filedocumented in this encounter Care Teams Scallop Cutter Relationship Specialty Start Date End Date Roberto Koehler MD [address] [place] [address] [phone] PCP - General Internal Medicine 06/29/14 documented as of this encounter
--- OUTSIDE RECORDS SUMMARY | 2024-10-18 12:19 | XMS_ITS | Encounter Summary ---
Author Organization [employer] Address [address] [facility] 7t [place] [address] Care Team Providers Care Watch And Clock Repair Clerk Name Role Phone Roberto Koehler MD Primary Care Provide r Encounter Details Date Type Department Care Team ([facility] Contact Info) Description 12/25/2022 Abstract [facility] [address] [place], [place] [phone] Roberto Koehler MD [address] [place], [place] [phone] Social History Tobacco Use Types Packs/Day Years [...] Description 12/23/2024 10:30 AM EDT Office Visit [facility] [address] [place] [address] Roberto Koehler MD [address] [place], [place] [phone] documented as of this encounter Procedures Procedure Name Priority Date/Time Associated Diagnosis Comments COLONOSCOPY Routine 12/22/2012 documented in this encounter Results * Hm Colonoscopy (12/22/2012) Colonoscopy Normal Normal 12/22/2012 Alexa Carmen Ng - 12/22/2012 3:04 PM EDT Recommended 10 year follow up Historical Provider HEALTH MAINTENANCE Final Result documented in this encounter Visit Diagnoses Not on filedocumented in this encounter Care Teams Watch And Clock Repair Clerk Relationship Specialty Start Date End Date Roberto Koehler MD [address] [place] [phone] PCP - General Internal Medicine 06/29/14 documented as of this encounter
--- OUTSIDE RECORDS SUMMARY | 2024-10-18 12:19 | XMS_ITS | Encounter Summary ---
Author Organization [employer] Address [address] [facility] 7t [place] [address] Care Team Providers Care Filemaker Developer Name Role Phone Roberto Koehler MD Primary Care Provide r Reason for Visit * Reason Onset Date Comments Med Refill 09/09/2023 Encounter Details Date Type Department Care Team ([facility] st Contact Info) Description 09/09/2023 Telephone [facility] MEDICINE [address] [place] [address] [phone] Roberto Koehler MD [address] [place], [place] [phone] Med Refill Social History Tobacco Use Types [...] pended to PCP. * Telephone Encounter - Sevn Oquendo - 09/09/2023 8:33 AM EST TC from pt requesting medication refill. Medications needing refill : levothyroxine (Synthroid, Levoxyl) 100 MCG tablet To be sent to: [id number] - [place], [place] - [address] [place] [address] documented in this encounter Plan of Treatment Upcoming Encounters Date Type Department Care Team (Late st Contact Info) Description 12/23/2024 10:30 AM EDT Office Visit [facility] MEDICINE [address] [place] [address] Roberto Koehler MD [address] [place] [address] documented as of this encounter Visit Diagnoses Not on filedocumented in this encounter Care Teams Filemaker Developer Relationship Specialty Start Date End Date Roberto Koehler MD [address] [place] [address] [phone] PCP - General Internal Medicine 06/29/14 documented as of this encounter
--- OUTSIDE RECORDS SUMMARY | 2024-10-18 12:19 | XMS_ITS | Encounter Summary ---
Author Organization [employer] Address [address] [facility] 7t [place] [address] Care Team Providers Care Program Officer Name Role Phone Roberto Koehler MD Primary Care Provide r Reason for Visit * Reason Comments Med Refill Encounter Details Date Type Department Care Team ([facility] Contact Info) Description 12/29/2023 Refill [facility] [address] [place], [place] [phone] Roberto Koehler MD [address] [place], [place] [phone] Rash Social History Tobacco Use Types Packs/Day [...] 12/23/2024 10:30 AM EDT Office Visit [facility] MED[facility] [address] [place] [address] Roberto Koehler MD [address] [place] [address] documented as of this encounter Visit Diagnoses Diagnosis Rash Rash and other nonspecific skin eruption documented in this encounter Additional Health Concerns Assessment Noted Time PHQ-9 Depression Total Score: 1 12/18/19 24 10:46 AM EDT documented as of this encounter Care Teams Program Officer Relationship Specialty Start Date End Date Roberto Koehler MD [address] [place] [address] PCP - General Internal Medicine 06/29/14 documented as of this encounter
--- OUTSIDE RECORDS SUMMARY | 2024-10-18 12:19 | XMS_ITS | Encounter Summary ---
Author Organization [employer] Address [address] [facility] 7t [place] [address] Care Team Providers Care Area Field Worker Name Role Phone Roberto Koehler MD Primary Care Provide r Reason for Visit * Reason Comments Med Refill Encounter Details Date Type Department Care Team ([facility] Contact Info) Description 08/23/[address] [facility] [address] [place], [place] [phone] Roberto Koehler MD [address] [place], [place] [phone] Primary hypertension Social History Tobacco Use Types [...] Office Visit [facility] [address] [place] [address] Roberto Koehler MD [address] [place] [address] documented as of this encounter Visit Diagnoses Diagnosis Primary hypertension Unspecified essential hypertension documented in this encounter Additional Health Concerns Assessment Noted Time PHQ-9 Depression Total Score: 1 12/18/19 24 10:46 AM EDT documented as of this encounter Care Teams Area Field Worker Relationship Specialty Start Date End Date Roberto Koehler MD [address] [place] [address] PCP - General Internal Medicine 06/29/14 documented as of this encounter
--- OUTSIDE RECORDS SUMMARY | 2024-10-18 12:19 | XMS_ITS | Clinical Summary ---
Author Organization [employer] Address [address] [place] [address] Care Team Providers Care Tobacco Sprayer Name Role Phone Roberto Koehler MD Primary Care Provide r Allergies No known active allergies Medications celecoxib (CeleBREX) 200 MG capsule TAKE ONE CAPSULE BY MOUTH TWICE A DAY. START DAY 1 PRE-OP 3 Active rosuvastatin (Crestor) 10 MG tablet Take 10 mg by mouth Once per day. 4 Active acetaminophen (Tylenol Extra Strength) 500 MG tabletIndications: Acute nonintractable headache, unspecified headache type Take 1 tablet (500 mg) by mouth every 8 (eight) hours if needed for mild pain. 60 tablet 4 Active Diclofenac Sodium 1 % gel APPLY 2 GRAMS TOPICALLY FOUR TIMES A DAY 350 g 2 4 Active hydroCHLOROthiazid e (HYDRODiuril) 25 MG tabletIndications: Primary hypertension TAKE ONE TABLET BY MOUTH EVERY DAY 90 tablet 1 5 Active levothyroxine (Synthroid, Levoxyl) 100 MCG tabletIndications: Acquired hypothyroidism Take 1 tablet (100 mcg) by mouth in the morning. 90 tablet 1 5 Active lisinopril 20 MG tabletIndications: Primary hypertension Take 1 tablet (20 mg) by mouth Once per day. 30 tablet 6 5 Active fluticasone (Flonase) 50 MCG/ACT nasal sprayIndications:S easonal allergies Administer 1-2 sprays into each nostril Once per day. Shake gently. Before first use, prime pump. After use, clean tip and replace cap. 16 g 2 5 Active cetirizine (ZyrTEC) 10 MG tabletIndications: Rash,Seasonal allergies Take 1 tablet (10 mg) by mouth Once per day. 30 tablet 2 025 Active Active Problems Problem Noted Date Diagnosed Date [...] super infection. Pt denies known infestation. Had loader at her house Advise avoid itching if possible, responded to steroid cream. Missed dermatology appointment Assessment & Plan (12/29/2023 11:01 AM EDT): History, distribution and exam consistent with bed bug bites. No evidence of super infection. Pt denies known infestation. Advise avoid itching if possible, trial of steroid cream. Looks for evidence of infestation and speak to melba echavarria about fumigation. She has derm appointment referral [...] hyperplasia. Pt was seen by Dr Springer Frozen Pie Maker in 10/2017 and he recommended f/u in [...] hyperplasia. Pt was seen by Dr Springer Frozen Pie Maker in 10/2017 and he recommended f/u in [...] hyperplasia. Pt was seen by Dr Springer Frozen Pie Maker in 10/2017 and he recommended f/u in [...] Hx liver lesion: on a CT of [id number] there was an incidental finding of: Low-density [...] subcapsular splenic hemangioma has also remained stable. [facility] care 12/18/2023 Assessment & Plan (04/01/2024 9:14 [...] 5 mm Likely benign, Will refer to [facility] given that pt reports is [...] elevated On hydrochlorothiazide 25 mg po daily BMP 12/19/2023 Normal Plan: Add Lisinopril 10 mg po daily Follow up 4 months Assessment & Plan (04/01/2024 10:06 AM EDT): Here for a follow up BP uncontrolled On hydrochlorothiazide 25 mg po daily BMP 12/19/2023 Normal Plan: Continue with current regimen [...] 9:15 AM EST Office Visit [facility] [address] [place] [address] Roberto Koehler MD Primary hypertension (Primary Dx); Acute nonintractable headache, unspecified headache type; Rash; Seasonal allergies 09/16/2024 Travel 09/07/2024 Refill [facility] [address] [place] [address] Roberto Koehler MD Acquired hypothyroidism 09/03/2024 Telephone [facility] [address] [place] [address] Roberto Koehler MD Chart Prep 08/23/2024 Refill [facility] [address] [place] [address] Roberto Koehler MD Primary hypertension 08/23/2024 Refill [facility] [address] [place] [address] Roberto Koehler MD Primary hypertension 08/20/2024 11:30 AM EST Clinical Support [facility] [address] [place] [address] Bebe Valladares LPN Exposure to confirmed case of COVID-19 (Primary Dx) 08/20/2024 Travel 08/13/2024 10:15 AM EST Office Visit [facility] [address] [place] [address] Glen Mccoy MD Sebaceous gland hyperplasia (Primary Dx) 08/13/2024 Travel 07/24/2024 Refill [facility] [address] [place] [address] Harper Leiva FNP from Last 3 Months [...] Office Visit [facility] [address] [place] [address] Roberto Koehler MD [address] [place] [address] Health Maintenance Due Date Last Done Comments [...] Procedure Name Priority Date/Time Associated Diagnosis Comments BASIC METABOLIC PANEL Routine 10/13/2024 8:54 AM EST Primary hypertension POCT RAPID COVID ANTIGEN Routine 08/20/2024 11:43 AM EST Exposure to confirmed case of COVID-19 BI MAMMOGRAM SCREENING TOMOSYNTHESIS BILATERAL Routine 01/05/2024 12:25 PM EDT LIPID PANEL, STANDARD Routine 12/19/2023 8:54 AM EDT Acquired hypothyroidism [facility] HISTORICAL HEPATITIS C ANTIBODY RFLX Routine 10/21/2019 8:30 AM EST [facility] HISTORICAL HIV AB/AG Routine 10/21/2019 8:30 AM EST HM COLONOSCOPY Routine 12/22/2012 from Last 3 Months or Most Recently Relevant to Health Maintenance Results * (ABNORMAL) Basic Metabolic Panel (10/13/2024 8:54 AM EST) Sodium 144 135 - 145 mmol/L [facility] Potassium 3.3 3.3 - 5.1 mmol/L [facility] Comment:Slight Hemolysis.Int erpret result with caution. Chloride 108 96 - 108 mmol/L [facility] Carbon Dioxide 28 22 - 29 mmol/L [facility] Anion Gap 11(L) 12 - 20 [facility] Urea Nitrogen (BUN) 17(H) 9 - 16 mg/dL [facility] Creatinine, Serum 0.69 0.5 - 1.4 mg/dL [facility] Estimated Glomerular Filt Rate >60 [facility] Comment:Chronic Kidney Disea se: Estimated GFR < 60 mL/min/1.42x7Omexit Kidney Disease: Estimated GFR < 15 mL/min/1.73m2 Glucose 79 60 - 115 mg/dL [facility] Calcium 9.0 8.4 - 10.2 mg/dL [facility] Blood Venous blood specimen / Unknown 10/13/2024 8:54 AM EST 10/13/2024 11:08 AM EST us Roberto Oquendo MD LAB BLOOD ORDERABLES Final Result [facility] [address] [place] [phone] [phone] * POCT Rapid COVID Ag (08/20/2024 11:43 AM EST) Rapid COVID Ag Negative Swab 08/20/2024 11:4 3 AM EST us Doreen Jean MD POINT OF CARE TEST ENTER/ED IT ORDERABLES Final Result * BI Mammogram Screening Tomosynthesis Bilateral (01/05/2024 12:25 PM EDT) Anatomical Region Laterality Modality Breast Bilateral Mammography 01/05/2024 12:2 5 PM EDT Narrative 01/18/2024 7:19 PM EDT ? [facility] ? [address] ?[place] [address] ? Mammography Report ? Signed ? Patient: Nguyen Frausto ?MR#: [id number] ?? [id number] ? : 1960 ?Acct:[id number] ? Age/Sex: 63 / F ?ADM Date: 01/05/24 ? Loc: HO.MAMMO ? Attending Dr: Roberto Mckinney MD ? Ordering Physician: Roberto Mckinney MD ?Resu ?? lts: 1Negative ? Date of Service: 01/05/24 ?Follow Up: 1 Year From Orig ?? inal Mammogram ? Procedure(s): MM tomosynthesis screening BI ?? Accession Number(s): [id number] ? cc: Roberto Mckinney MD ? EXAMINATION: [...] 1913 ? DD/ 1225 ? TD/TT: ? Avionics System Engineer: ? Procedure Note Latesha, Blessing - 01/18/2024 [facility] [address] [place] [address] Dr. [place], [place] [id number] Mammography Report Signed Patient: Nguyen Frausto BANNER#: [id number] : 2Acct:[id number] Age/Sex: 63 / FADM Date: 01/05/24 Loc: [facility] Attending Dr: Roberto Mckinney MD Ordering Physician: Roberto Mckinneyu lts: 1Negative Date of Service: 01/05/24Follow Up: 1 Year From Orig inal Mammogram Procedure(s): MM tomosynthesis screening BI Accession Number(s): [id number] cc: Roberto Mckinney MD EXAMINATION: MM SCREENING [...] in OV> 01/18/24 1915 DD/ 1225 TD/TT: Avionics System Engineer: us Roberto Oquendo MD IMG BI PROCEDURES Wes kacie Result - Final * (ABNORMAL) Lipid Panel, Standard (12/19/2023 8:54 AM EDT) Triglycerides 78 <150 mg/dL [facility] Comment:Desirable Triglyceri de: less than 150 mg/dLBorderline High Triglyceride 150-199 mg/dLHigh Triglyceride: 200-499 mg/dLVery High Triglyceride: greater than or equal to 5OO mg/dL Cholesterol 160 <200 mg/dL [facility] Comment:Desirable Cholestero l: less than 200 mg/dLBorderline High Cholesterol: 200-239 mg/dLHigh Cholesterol: greater than 239 mg/dL LDL Cholesterol Calculated 100(H) <100 mg/dL [facility] Comment:Desirable LDL: less than 100 mg/dLNear Optimal/Above Optimal LDL: 110- 129 mg/dLBorderline High LDL: 130-159 mg/dLHigh LDL: 160-189 mg/dLVery High LDL: greater than or equal to 190 mg/dL HDL Cholesterol 45 >40 mg/dL [facility] Comment:Desirable HDL: great er than 40 mg/dL Note: This HDL assay may give artificially low results in patients with liver disease. Blood Venous blood specimen / Unknown 12/19/2023 8:54 AM EDT 12/19/2023 11:28 AM EDT Roberto Oquendo MD LAB BLOOD ORDERABLES Final Result Performing Organization Address City/[facility]/ZIP Co de Phone Number [facility] [address] [place] [phone] [phone] * HEPATITIS C ANTIBODY RFLX (10/21/2019 8:30 AM EST) Pathologist [facility] HEPATITIS C ANTIBODY [facility] Comment: Antibodies to HCV not detected; does not exclude early acute HCV infection. 10/21/2019 8:30 AM EST Lele Locke MD HISTORICAL/NON ORDERABLE LABS Final Result Performing Organization Address [facility] Co de Phone Number [facility] [address] * HIV AB/AG (10/21/2019 8:30 AM [...] detection of this assay. ?? [facility] [employer] HIV Ag/Ab Combo assay result and supplemental assay results should be interpreted in conjunction with the patient's clinical presentation, history and other laboratory results. ??If the results are inconsistent with clinical evidence, additional testing is suggested to confirm the result. 10/21/2019 8:30 AM EST Historical Provider HISTORICAL/NON ORDERABLE LABS Final Result [facility] [address] * Colonoscopy (12/22/2012) Colonoscopy Normal Normal 12/22/2012 Narrative Carmen Ng - 12/22/2012 3:04 PM EDT Recommended 10 year follow up Historical Provider HEALTH MAINTENANCE Final Result from Last 3 Months or Most Recently Relevant to Health Maintenance [place] [address] [place] [address] C3 [employer] PART[employer] Care Teams Tobacco Sprayer Relationship Specialty Start Date End Date Roberto Koehler MD [address] [place] [phone] PCP - General Internal Medicine 06/29/14
== END 2024-10-18 10:34 | disposition home or self-care (01) ==
LOC: HO.CT 10:33
PROVIDERS: PCP Internal Medicine; Visit Provider Surgery
DX: E32.0 Persistent hyperplasia of thymus (principal)
CPT/HCPCS: 71260; Q9967

== ENCOUNTER → 2024-10-18 10:39 | Outpatient (BNV) | payer MEDICAID, SELFPAY | PROVIDERS: PCP Internal Medicine; Visit Provider Radiology Diagnostic Radiology | DX: E32.0 Persistent hyperplasia of thymus (principal) | CPT/HCPCS: 71260 ==

== ENCOUNTER 2024-10-25 09:08 | Outpatient (AMB) | payer MEDICAID, SELFPAY ==
--- NOTE | 2024-10-25 09:13 | A.OFFVIS_ITS ---
Intake Visit Reasons: Discuss chest CT 10-18-24 Intake Note: Patient her to discuss Chest CT 10-18-24. Attendant Child Activity Required: No Accompanied by: Self / Same As Patient Allergies No Known Allergies [No Known Allergies*] Allergy (Verified 10/25/24 09:14) HPI Comments Details: Patient was answering evaluation/surveillance of CT scan of chest regarding thymic hyperplasia. She has no chest or respiratory issues or complaints. Nothing to suggest myasthenia gravis. CT scan demonstrates anterior mediastinal process status quo. [facility] Medical History Menorrhagia Anemia Vitamin D deficiency Hypothyroidism Surgical History Hx of hysterectomy Hx of tubal ligation Hx of section Family History Brother HTN (hypertension) Asthma Mother Asthma Father CVD (cardiovascular disease) Social History Household Members: Spouse and Children Housing: Apartment Alcohol intake: never Patient Tobacco Use Status: Current everyday Tobacco user Tobacco use type: Cigarette Cigarettes Per Day: 10 Years Smoked: 20 Physical Exam HEENT Other: No obvious cervical, periclavicular, or axillary adenopathy bilaterally. Chest Other: Chest breath sounds bilaterally. 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 All questions answered. Coding Level of Care Code Est Pt Level 4 (02001) Diagnoses Multiple pulmonary nodules R91.8 Thymus hyperplasia E32.0
--- OUTSIDE RECORDS SUMMARY | 2024-10-25 09:42 | XMS_ITS | Encounter Summary ---
Author Organization [employer] [facility] Address [address] [place] [address] Care Team Providers Care Project Control Analyst Name Role Phone Roberto Koehler MD Primary Care Provide r Reason for Visit * Reason Comments Med Refill Encounter Details Date Type Department Care Team ([facility] Contact Info) Description 09/03/2022 Refill [facility] [address] [place] [address] [phone] Reina Ag MD [address] [place], [place] [phone] Social History Tobacco Use Types Packs/Day Years [...] Upcoming Encounters Date Type Department Care Team ([facility] Contact Info) Description 12/23/2024 10:30 AM EDT Office Visit [facility] [address] [place] [address] [phone] Roberto Koehler MD [address] [place], [place] [phone] documented as of this encounter Visit Diagnoses Not on filedocumented in this encounter Care Teams Project Control Analyst Relationship Specialty Start Date End Date Roberto Koehler MD [address] [place] [address] [phone] PCP - General Internal Medicine 06/29/14 documented as of this encounter
--- OUTSIDE RECORDS SUMMARY | 2024-10-25 09:42 | XMS_ITS | Encounter Summary ---
Author Organization [employer] Address [address] [facility] [address] [place] [address] Care Team Providers Care Brine Tank Operator Name Role Phone Roberto Koehler MD Primary Care Provide r Reason for Visit * Reason Comments Med Refill Encounter Details Date Type Department Care Team ([facility] Contact Info) Description 08/23/2024 Refill [facility] [address] [place], [place] [phone] Roberto Koehler MD [address] [place], [place] [phone] Primary hypertension Social History Tobacco Use Types [...] Description 12/23/2024 10:30 AM EDT Office Visit [facility] [address] [place] [address] Roberto Koehler MD [address] [place] [phone] documented as of this encounter Visit Diagnoses Diagnosis Primary hypertension Unspecified essential hypertension documented in this encounter Additional Health Concerns Assessment Noted Time PHQ-9 Depression Total Score: 1 12/18/19 24 10:46 AM EDT documented as of this encounter Care Teams Brine Tank Operator Relationship Specialty Start Date End Date Roberto Koehler MD [address] [place] [phone] PCP - General Internal Medicine 06/29/14 documented as of this encounter
--- OUTSIDE RECORDS SUMMARY | 2024-10-25 09:42 | XMS_ITS | Clinical Summary ---
Author Organization [employer] Address [address] [facility] 7t [place] [address] Care Team Providers Care Milk Handler Name Role Phone Roberto Koehler MD Primary [...] super infection. Pt denies known infestation. Had curriculum development specialist at her house Advise avoid itching if [...] hyperplasia. Pt was seen by Dr Springer Program Manager Transportation in 10/2017 and he recommended f/u in [...] hyperplasia. Pt was seen by Dr Springer Program Manager Transportation in 10/2017 and he recommended f/u in [...] hyperplasia. Pt was seen by Dr Springer Program Manager Transportation in 10/2017 and he recommended f/u in [...] Hx liver lesion: on a CT of [id number] there was an incidental finding of: Low-density [...] subcapsular splenic hemangioma has also remained stable. [facility] care 12/18/2023 Assessment & Plan (04/01/2024 9:14 [...] 5 mm Likely benign, Will refer to [facility] Derm clinic given that pt reports [...] Encounters Date Type Department Care Team Description 10/18/2024 Orders Only [facility] External Provider, [facility] 09/16/2024 9:15 AM EST Office Visit [facility] [address] [place] [address] Roberto Koehler MD Primary hypertension (Primary Dx); Acute nonintractable headache, unspecified headache type; Rash; Seasonal allergies 09/16/2024 Travel 09/07/2024 Refill [facility] [address] [place] [address] Roberto Koehler MD Acquired hypothyroidism 09/03/2024 Telephone [facility] [address] [place] [address] Roberto Koehler MD Chart Prep 08/23/2024 Refill [facility] [address] [place] [address] Roberto Koehler MD Primary hypertension 08/23/2024 Refill [facility] [address] [place] [address] Roberto Koehler MD Primary hypertension 08/20/2024 11:30 AM EST Clinical Support [facility] [address] [place] [address] Bebe Valladares LPN Exposure to confirmed case of COVID-19 (Primary Dx) 08/20/2024 Travel 08/13/2024 10:15 AM EST Office Visit [facility] [address] [place] [address] Glen Mccoy MD Sebaceous gland hyperplasia (Primary Dx) 08/13/2024 Travel from Last 3 Months Immunizations Name Administration [...] Description 12/23/2024 10:30 AM EDT Office Visit [facility] [address] [place] [address] Roberto Koehler MD [address] [place] [address] Health Maintenance Due Date Last Done Comments [...] Procedure Name Priority Date/Time Associated Diagnosis Comments CT CHEST W CONTRAST Routine 10/19/2024 1 0:42 AM EST BASIC METABOLIC PANEL Routine 10/13/2024 8:54 AM EST Primary hypertension POCT RAPID COVID ANTIGEN Routine 08/20/2024 11:43 AM EST Exposure to confirmed case of COVID-19 BI MAMMOGRAM SCREENING TOMOSYNTHESIS BILATERAL Routine 01/05/2024 12:25 PM EDT LIPID PANEL, STANDARD Routine 12/19/2023 8:54 AM EDT Acquired hypothyroidism [facility] HEPATITIS C ANTIBODY RFLX Routine 10/21/2019 8:30 AM EST [facility] HIV AB/AG Routine 10/21/2019 8:30 AM EST HM COLONOSCOPY Routine 12/22/2012 from Last 3 Months or Most Recently Relevant to Health Maintenance Results * CT Chest w/ Contrast (10/19/2024 10:42 AM EST) Anatomical Region Laterality Modality Body, Chest Computed Tomogra phy 10/19/2024 10:4 2 AM EST Narrative 10/19/2024 10:44 AM EST ? [facility] ?[address] ?[place] [address] ? CT Scan Report ? Signed ? Patient: Nguyen Frausto ?MR#: [id number] ?? [id number] ? : 1960 ?Acct:[id number] ? Age/Sex: 64 / F ?ADM Date: 10/18/24 ? Loc: HO.CT ? Attending Dr: Hitesh Lauren MD ? Ordering Physician: Hitesh Lauren MD ?? Date of Service: 10/18/24 ?? Procedure(s): CT chest w IV con ?? Accession Number(s): [id number] ? cc: Roberto Mckinney MD; Hitesh Lauren MD ? Report Number: ?? [id number]: Total DLP = ??284.00 mGy-cm ? CLINICAL HISTORY: THYMUS HYPERPLASIA ? CT chest with contrast ? Comparison: CT/DC/SR - CT CHEST WO IV CON - 01/22/24 16:34 EDT ?? CT/DC/SR - CHEST WITH IV CONTRAST [id number] - 08/15/17 11:42 EST ? Findings: ?? Current lung detail images degraded from respiratory motion artifact. ?? Increased patchy air trapping and mosaic lung attenuation suggesting ?? sequela of small airway disease either obstructive or reactive. ?? Linear parenchymal changes in the right middle lobe suggesting mild ?? atelectasis or chronic postinflammatory scarring. No consolidation. ?? Small bilateral pulmonary nodules in the 4-6 mm range all appear present ?? on priors without new or progressive nodule. ?? Stable granuloma in the superior segment right lower lobe and posterior ?? left lower lobe. ?? Mild increased attenuation in the anterior mediastinal fat with several ?? small nodules unchanged from 2017 study without confluent mass or ?? alteration of the mediastinal contour. ?? No nodules within the included thyroid gland. No enlarged mediastinal or ?? hilar lymph nodes. Stable calcified/granulomatous left hilar node. ?? Normal caliber thoracic aorta and pulmonary trunk. No central pulmonary ?? embolism. ?? Mild cardiomegaly. No pericardial effusion. Mild coronary artery ?? calcification. ?? Esophagus within normal limits. No hiatal hernia. ?? 18 mm subcapsular hypodensity liver segment VII stable to 2017 study and ?? most compatible with a hemangioma. The small focus of subcapsular fat ?? along the falciform ligament is also stable, a common site for such. ?? 12 mm left adrenal nodule, not significantly changed from priors, most ?? likely an adenoma ?? Bones intact. Soft tissues unremarkable. ? Impression: ?? 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 ?? Stable small bilateral pulmonary nodules. No new nodule. ?? More conspicuous patchy air trapping suggesting underlying small airway ?? disease. ?? Stable hepatic hemangioma and left adrenal adenoma. ? This document has been electronically signed by: Santos Lopez MD on ?? 10/19/2024 10:42:52 ? Dictated By: ?Santos Lopez MD ? Signed By: ?<Electronically signed by Santos Lopez MD in OV> ? 10/19/243 ? DD/ 41 ? TD/TT: 10/19/241041 ? Orthodontist: ? Procedure Note Blessing Charlton - 10/19/[address] [address] [address] Scan Report Signed Patient: Nguyen Frausto AMR#: [id number] : 2Acct:[id number] Age/Sex: 64 / FADM Date: 10/18/24 Loc: HO.CT Attending Dr: Hitesh Lauren MD Ordering Physician: Hitesh Lauren MD Date of Service: 10/18/24 Procedure(s): CT chest w IV con Accession Number(s): [id number] cc: Roberto Mckinney MD; Hitesh Lauren MD Report Number: [id number]: Total DLP = 284.00 mGy-cm CLINICAL HISTORY: THYMUS HYPERPLASIA CT chest with contrast Comparison: CT/DC/SR - CT CHEST WO IV CON - 01/22/24 16:[address]/DC/SR - CHEST WITH IV CONTRAST [id number] - 08/15/17 11:42 EST Findings: Current lung detail images degraded from respiratory motion artifact. Increased patchy air trapping and mosaic lung attenuation suggesting sequela of small airway disease either obstructive or reactive. Linear parenchymal changes in the right middle lobe suggesting mild atelectasis or chronic postinflammatory scarring. No consolidation. Small bilateral pulmonary nodules in the 4-6 mm range all appear present on priors without new or progressive nodule. Stable granuloma in the superior segment right lower lobe and posterior left lower lobe. Mild increased attenuation in the anterior mediastinal fat with several small nodules unchanged from 2017 study without confluent mass or alteration of the mediastinal contour. No nodules within the included thyroid gland. No enlarged mediastinal or hilar lymph nodes. Stable calcified/granulomatous left hilar node. Normal caliber thoracic aorta and pulmonary trunk. No central pulmonary embolism. Mild cardiomegaly. No pericardial effusion. Mild coronary artery calcification. Esophagus within normal limits. No hiatal hernia. 18 mm subcapsular hypodensity liver segment VII stable to 2017 study and most compatible with a hemangioma. The small focus of subcapsular fat along the falciform ligament is also stable, a common site for such. 12 mm left adrenal nodule, not significantly changed from priors, most likely an adenoma Bones intact. Soft tissues unremarkable. Impression: Stable soft tissue changes in the anterior mediastinal compatible with residual thymic tissue. Stable small bilateral pulmonary nodules. No new nodule. More conspicuous patchy air trapping suggesting underlying small airway disease. Stable hepatic hemangioma and left adrenal adenoma. This document has been electronically signed by: Santos Lopez MD on 10/19/2024 10:42:52 Dictated By: Santos Lopez MD Signed By: <Electronically signed by Santos Lopez MD in OV> 10/19/24 1043 DD/ 1042 TD/TT: 10/19/24 1042 Orthodontist: [facility] External Provider IMG CT PROCEDURES Final Result * (ABNORMAL) Basic Metabolic Panel (10/13/2024 8:54 AM EST) [facility] Sodium 144 135 - 145 mmol/L [facility] Potassium 3.3 3.3 - 5.1 mmol/L [facility] Comment:Slight Hemolysis.Int erpret result with caution. Chloride 108 96 - 108 mmol/L [facility] Carbon Dioxide 28 22 - 29 mmol/L [facility] Anion Gap 11(L) 12 - 20 [facility] Urea Nitrogen (BUN) 17(H) 9 - 16 mg/dL [facility] Creatinine, Serum 0.69 0.5 - 1.4 mg/dL [facility] Estimated Glomerular Filt Rate >60 [facility] Comment:Chronic Kidney Disea se: Estimated GFR < 60 mL/min/[id number] Kidney Disease: Estimated GFR < 15 mL/min/1.73m2 Glucose 79 60 - 115 mg/dL [facility] Calcium 9.0 8.4 - 10.2 mg/dL [facility] Blood Venous blood specimen / Unknown 10/13/2024 8:54 AM EST 10/13/2024 11:08 AM EST Roberto Oquendo MD LAB BLOOD ORDERABLES Final Result [facility] [address] [place] [address] [phone] * POCT Rapid COVID Ag (08/20/2024 11:43 AM EST) [facility] Rapid COVID Ag Negative Swab 08/20/2024 11:4 3 AM EST Doreen Jean MD POINT OF CARE TEST ENTER/ED IT ORDERABLES Final Result * BI Mammogram Screening Tomosynthesis Bilateral (01/05/2024 12:25 PM EDT) Anatomical Region Laterality Modality Breast Bilateral Mammography 01/05/2024 12:2 5 PM EDT Narrative 01/18/2024 7:19 PM EDT ? [facility] ? [address] ?[place] [address] ? Mammography Report ? Signed ? Patient: Nguyen Frausto A ?MR#: [id number] ?? [id number] ? : 1960 ?Acct:[id number] ? Age/Sex: 63 / F ?ADM Date: 01/05/24 ? Loc: HO.MAMMO ? Attending Dr: Roberto Mckinney MD ? Ordering Physician: Roberto Mckinney MD ?Resu ?? lts: 1Negative ? Date of Service: 01/05/24 ?Follow Up: 1 Year From Orig ?? inal Mammogram ? Procedure(s): MM tomosynthesis screening BI ?? Accession Number(s): [id number] ? cc: Roberto Mckinney MD ? EXAMINATION: [...] 1915 ? DD/ 1225 ? TD/TT: ? Orthodontist: ? Procedure Note Blessing Charlton - 01/18/2024 [facility] [address] [place], [place] [address] Mammography Report Signed Patient: Nguyen Frausto AMR#: [id number] : 2Acct:[id number] Age/Sex: 63 / FADM Date: 01/05/24 Loc: CAROLYNN.LANETTE Attending Dr: Roberto Mckinney MD Ordering Physician: Roberto Mckinney MDResu lts: 1Negative Date of Service: 01/05/24Follow Up: 1 Year From Orig inal Mammogram Procedure(s): MM tomosynthesis screening BI Accession Number(s): [id number] cc: Roberto Mckinney MD EXAMINATION: MM SCREENING [...] in OV> 01/18/24 1915 DD/ 1225 TD/TT: Orthodontist: us Roberto Oquendo MD IMG BI PROCEDURES Wes kacie Result - Final * (ABNORMAL) Lipid Panel, Standard (12/19/2023 8:54 AM EDT) Triglycerides 78 <150 mg/dL [facility] Comment:Desirable Triglyceri de: less than 150 mg/dLBorderline High Triglyceride 150-199 mg/dLHigh Triglyceride: 200-499 mg/dLVery High Triglyceride: greater than or equal to 5OO mg/dL Cholesterol 160 <200 mg/dL [facility] Comment:Desirable Cholestero l: less than 200 mg/dLBorderline High Cholesterol: 200-239 mg/dLHigh Cholesterol: greater than 239 mg/dL LDL Cholesterol Calculated 100(H) <100 mg/dL [facility] Comment:Desirable LDL: less than 100 mg/dLNear Optimal/Above Optimal LDL: 110- 129 mg/dLBorderline High LDL: 130-159 mg/dLHigh LDL: 160-189 mg/dLVery High LDL: greater than or equal to 190 mg/dL HDL Cholesterol 45 >40 mg/dL [facility] Comment:Desirable HDL: great er than 40 mg/dL Note: This HDL assay may give artificially low results in patients with liver disease. Blood Venous blood specimen / Unknown 12/19/2023 8:54 AM EDT 12/19/2023 11:28 AM EDT Roberto Oquendo MD LAB BLOOD ORDERABLES Final Result Performing Organization Address City/[facility]/ZIP Co de Phone Number [facility] [address] [place] [address] [phone] * HEPATITIS C ANTIBODY RFLX (10/21/2019 8:30 AM EST) Pathologist [facility] HEPATITIS C ANTIBODY NONREACTIVE NONREACTIVE [facility] Comment: Antibodies to HCV not detected; does not exclude early acute HCV infection. 10/21/2019 8:30 AM EST Historical Provider HISTORICAL/NON ORDERABLE LABS Final Result Performing Organization Address City/[facility] Co de Phone Number [facility] [address] * HIV AB/AG (10/21/2019 8:30 AM EST) Pathologist [facility] HIV AG/AB NONREACTIVE [facility] [...] detection of this assay. ?? The [employer] Special Officer HIV Ag/Ab Combo assay result and supplemental assay results should be interpreted in conjunction with the patient's clinical presentation, history and other laboratory results. ??If the results are inconsistent with clinical evidence, additional testing is suggested to confirm the result. 10/21/2019 8:30 AM EST Historical Provider HISTORICAL/NON ORDERABLE LABS Final Result [facility] [address] * Colonoscopy (12/22/2012) Colonoscopy Normal Normal 12/22/2012 Carmen Martínez - 12/22/2012 3:04 PM EDT Recommended 10 year follow up Historical Provider HEALTH MAINTENANCE Final Result from Last 3 Months or Most Recently Relevant to Health Maintenance Insurance [facility] C3 N PARTIAL Care Teams Milk Handler Relationship Specialty Start Date End Date Roberto Koehler MD [address] [place] [phone] PCP - General Internal Medicine 06/29/14
--- OUTSIDE RECORDS SUMMARY | 2024-10-25 09:42 | XMS_ITS | Encounter Summary ---
Author Organization [employer] Address [address] [facility] 7t [place] [address] Care Team Providers Care Hotel Supplies Salesperson Name Role Phone Roberto Koehler MD Primary Care Provide r Encounter Details Date Type Department Care Team ([facility] Contact Info) Description 12/25/2022 Abstract [facility] MEDICINE [address] [place], [place] [phone] Roberto Koehler MD [address] [place], [place] [phone] Social History Tobacco Use Types Packs/Day Years [...] Description 12/23/2024 10:30 AM EDT Office Visit [facility] [address] [place] [address] Roberto Koehler MD [address] [place], [place] [phone] documented as of this encounter Procedures Procedure Name Priority Date/Time Associated Diagnosis Comments COLONOSCOPY Routine 12/22/2012 documented in this encounter Results * Hm Colonoscopy (12/22/2012) Colonoscopy Normal Normal 12/22/2012 Alexa Carmen Ng - 12/22/2012 3:04 PM EDT Recommended 10 year follow up Historical Provider HEALTH MAINTENANCE Final Result documented in this encounter Visit Diagnoses Not on filedocumented in this encounter Care Teams Hotel Supplies Salesperson Relationship Specialty Start Date End Date Roberto Koehler MD [address] [place] [phone] PCP - General Internal Medicine 06/29/14 documented as of this encounter
--- OUTSIDE RECORDS SUMMARY | 2024-10-25 09:42 | XMS_ITS | Encounter Summary ---
Author Organization [employer] Address [address] [facility] 7t [place] [address] Care Team Providers Care Clamp Carrier Operator Name Role Phone Roberto Koehler MD Primary Care Provide r Reason for Visit * Reason Comments Med Refill Encounter Details Date Type Department Care Team ([facility] Contact Info) Description 12/29/[address] [facility] MED[facility]INE [address] [place], [place] [phone] Roberto Koehler MD [address] [place], [place] [phone] Rash Social History Tobacco Use Types Packs/Day [...] 10:30 AM EDT Office Visit [facility] MED[facility]INE [address] [place] [address] Roberto Koehler MD [address] [place] [address] documented as of this encounter Visit Diagnoses Diagnosis Rash Rash and other nonspecific skin eruption documented in this encounter Additional Health Concerns Assessment Noted Time PHQ-9 Depression Total Score: 1 12/18/19 24 10:46 AM EDT documented as of this encounter Care Teams Clamp Carrier Operator Relationship Specialty Start Date End Date Roberto Koehler MD [address] [place] [address] PCP - General Internal Medicine 06/29/14 documented as of this encounter
--- OUTSIDE RECORDS SUMMARY | 2024-10-25 09:42 | XMS_ITS | Encounter Summary ---
Author Organization [employer] Address [address] [facility] 7t [place] [address] Care Team Providers Care Jewel Hole Finish Opener Name Role Phone Roberto Koehler MD Primary Care Provide r Encounter Details Date Type Department Care Team ([facility] Contact Info) Description 10/18/2024 Orders Only [facility] External Provider, [facility] Social History Tobacco Use Types Packs/Day Years [...] Description 12/23/2024 10:30 AM EDT Office Visit [facility] [address] [place] [address] Roberto Koehler MD [address] [place] [address] documented as of this encounter Procedures Procedure Name Priority Date/Time Associated Diagnosis Comments CT CHEST W CONTRAST Routine 10/19/2024 1 0:42 AM EST documented in this encounter Results * CT Chest w/ Contrast (10/19/2024 10:42 AM EST) Anatomical Region Laterality Modality Body, Chest Computed Tomogra phy 10/19/2024 10:4 2 AM EST Narrative 10/19/2024 10:44 AM EST ? [facility] ?[address] ?[place] [address] ? CT Scan Report ? Signed ? Patient: Nguyen Frausto A ?MR#: [id number] ?? [id number] ? : 1960 ?Acct:[id number] ? Age/Sex: 64 / F ?ADM Date: 03/03/25 ? Loc: HO.CT ? Attending Dr: Hitesh Lauren MD ? Ordering Physician: Hitesh Lauren MD ?? Date of Service: 10/18/24 ?? Procedure(s): CT chest w IV con ?? Accession Number(s): [id number] ? cc: Roberto Mckinney MD; Hitesh Lauren MD ? Report Number: ?? [id number]: Total DLP = ??284.00 mGy-cm ? CLINICAL HISTORY: THYMUS HYPERPLASIA ? CT chest with contrast ? Comparison: CT/NV/SR - CT CHEST WO IV CON - 01/22/24 16:34 EDT ?? CT/NV/SR - CHEST WITH IV CONTRAST [id number] - 08/15/17 11:42 EST ? Findings: ?? [...] by Santos Lopez MD in OV> ? 10/19/24 1043 ? DD/ 1042 ? TD/TT: 10/19/242 ? Camp Attendant: ? Procedure Note Latesha, Image - 03/04/[address] [address] [address] Scan Report Signed Patient: Nguyen Frausto AMR#: [id number] : 2Acct:[id number] Age/Sex: 64 / FADM Date: 10/18/24 Loc: HO.CT Attending Dr: Hitesh Lauren MD Ordering Physician: Hitesh Lauren MD Date of Service: 10/18/24 Procedure(s): CT chest w IV con Accession Number(s): [id number] cc: Roberto Mckinney MD; Hitesh Lauren MD Report Number: [id number]: Total DLP = 284.00 mGy-cm CLINICAL HISTORY: THYMUS HYPERPLASIA CT chest with contrast Comparison: CT/NV/SR - CT CHEST WO IV CON - 01/22/24 16:[address]/NV/SR - CHEST WITH IV CONTRAST [id number] - 08/15/17 11:42 EST Findings: Current lung [...] 10/19/24 1043 DD/ 1042 TD/TT: 10/19/24 1042 Camp Attendant: [facility] External Provider IMG CT PROCEDURES Final Result documented in this encounter Visit Diagnoses Not on filedocumented in this encounter Additional Health Concerns Assessment Noted Time PHQ-9 Depression Total Score: 1 12/18/19 24 10:46 AM EDT documented as of this encounter Care Teams Jewel Hole Finish Opener Relationship Specialty Start Date End Date Roberto Koehler MD [address] [place] [phone] PCP - General Internal Medicine 06/29/14 documented as of this encounter
--- OUTSIDE RECORDS SUMMARY | 2024-10-25 09:42 | XMS_ITS | Encounter Summary ---
Author Organization [employer] Address [address] [facility] 7t [place] [address] Care Team Providers Care Utility Specialist Name Role Phone Roberto Koehler MD Primary Care Provide r Reason for Visit * Reason Onset Date Comments Med Refill 09/09/2023 Encounter Details Date Type Department Care Team ([facility] st Contact Info) Description 09/09/2023 Telephone [facility] MEDICINE [address] [place] [address] [phone] Roberto Koehler MD [address] [place], [place] [phone] Med Refill Social History Tobacco Use Types [...] to: [facility] - [place], [place] - [address] [place] [address] documented in this encounter Plan of Treatment Upcoming Encounters Date Type Department Care Team (Late st Contact Info) Description 12/23/2024 10:30 AM EDT Office Visit [facility] MEDICINE [address] [place] [address] Roberto Koehler MD [address] [place] [address] documented as of this encounter Visit Diagnoses Not on filedocumented in this encounter Care Teams Utility Specialist Relationship Specialty Start Date End Date Roberto Koehler MD [address] [place] [address] [phone] PCP - General Internal Medicine 06/29/14 documented as of this encounter
== END 2024-10-25 09:27 | disposition home or self-care (01) ==
PROVIDERS: PCP Internal Medicine; Visit Provider Surgery
DX: R91.8 Other nonspecific abnormal finding of lung field (principal); E32.0 Persistent hyperplasia of thymus
CPT/HCPCS: 99214

== ENCOUNTER → 2024-10-25 09:08 | Outpatient (BNVA) | payer MEDICAID, SELFPAY | PROVIDERS: PCP Internal Medicine; Visit Provider Surgery | DX: R91.8 Other nonspecific abnormal finding of lung field (principal); E32.0 Persistent hyperplasia of thymus | CPT/HCPCS: 99212 ==

== ENCOUNTER 2025-01-07 08:49 | Outpatient (REF) | payer MEDICAID, SELFPAY ==
--- OUTSIDE RECORDS SUMMARY | 2025-01-07 09:08 | XMS_ITS | Encounter Summary ---
Author Organization [employer] Address [address] [facility] 7t [place] [address] Care Team Providers Care Pulpwood Buyer Name Role Phone Roberto Koehler MD Primary Care Provide r Reason for Visit * Reason Comments Med Refill Encounter Details Date Type Department Care Team ([facility] Contact Info) Description 09/03/2022 Refill [facility]INE [address] [place], [place] [phone] Reina Ag MD [address] [place], [place] [phone] Social History Tobacco Use Types Packs/Day Years [...] as of this encounter Plan of Treatment Not on file documented as of this encounter Visit Diagnoses Not on filedocumented in this encounter Care Teams Pulpwood Buyer Relationship Specialty Start Date End Date Roberto Koehler MD [address] [place], [place] [phone] PCP - General Internal Medicine 06/29/14 documented as of this encounter
[2025-01-07 11:52] LABS: Cholesterol 155 mg/dL (<200); HDL Cholesterol 43 mg/dL (>40); LDL Cholesterol Calculated 96 mg/dL (<100); Triglycerides 84 mg/dL (<150)
[2025-01-07 12:16] LABS: TSH reflex Free T4 0.24 uIU/mL (0.32-4.0)
[2025-01-07 12:58] LABS: Free T4 (Free Thyroxine) 1.29 ng/dL (0.71-1.85)
== END 2025-01-07 08:50 | disposition home or self-care (01) ==
LOC: HO.HHCL 08:49
PROVIDERS: Visit Provider Internal Medicine
DX: E03.9 Hypothyroidism, unspecified (principal); I10 Essential (primary) hypertension
CPT/HCPCS: 36415; 80061; 84439; 84443

== ENCOUNTER 2025-01-17 09:38 | Outpatient (REF) | payer MEDICAID, SELFPAY ==
--- OUTSIDE RECORDS SUMMARY | 2025-01-17 10:19 | XMS_ITS | Encounter Summary ---
Author Organization [employer] Address [address] [facility] 7t [place] [address] Care Team Providers Care Field Crop Technical Officer Name Role Phone Roberto Koehler MD Primary Care Provide r Reason for Visit * Reason Comments Med Refill Encounter Details Date Type Department Care Team ([facility] Contact Info) Description 09/03/2022 Refill [facility] MEDICINE [address] [place], [place] [phone] Reina Ag MD [address] [place], [place] [phone] Social History Tobacco Use Types Packs/Day Years [...] on filedocumented in this encounter Care Teams Field Crop Technical Officer Relationship Specialty Start Date End Date Roberto Koehler MD [address] [place], [place] [phone] PCP - General Internal Medicine 06/29/14 documented as of this encounter
== END 2025-01-17 09:39 | disposition home or self-care (01) ==
LOC: HO.MAMMO 09:38
PROVIDERS: PCP Internal Medicine; Visit Provider Internal Medicine
DX: Z12.31 Encounter for screening mammogram for malignant neoplasm of breast (principal)
CPT/HCPCS: 77063; 77067

== ENCOUNTER → 2025-01-17 10:00 | Outpatient (BNV) | payer MEDICAID, SELFPAY | PROVIDERS: PCP Internal Medicine; Visit Provider Internal Medicine | DX: Z12.31 Encounter for screening mammogram for malignant neoplasm of breast (principal) | CPT/HCPCS: 77063; 77067 ==

== ENCOUNTER 2025-01-21 10:32 | Day surgery (SDC) | payer MEDICAID, SELFPAY ==
[2024-10-06 14:15] VITALS: BMI 35.1
--- OUTSIDE RECORDS SUMMARY | 2024-10-06 15:14 | XMS_ITS | Encounter Summary ---
Author Organization [facility] Address [address] [facility] 7t [place] [address] Care Team Providers Care Manager Immunology Name Role Phone Roberto Koehler MD Primary Care Provide r Reason for Visit * Reason Comments Med Refill Encounter Details Date Type Department Care Team ([facility] Contact Info) Description 09/03/2022 Refill [facility] MEDICINE [address] [place] [address] [phone] Reina Ag MD [address] [place], [place] [phone] Social History Tobacco Use Types Packs/Day Years Used Date Smoking Tobacco: Every Day Cigarettes Smokeless Tobacco: Never Alcohol Use Standard Drinks/Week Comments Never 0 (1 standard drink = 0.6 oz pur e alcohol) Comments Unknown Sex and Gender Information Value Date Recorded Sex Assigned at Female 06/17/2022 10:15 AM EDT Legal Sex Female 10:15 AM EDT Gender Identity Female 06/17/2022 10:15 AM EDT Sexual Orientation Straight 06/17/2022 10 :15 AM EDT COVID-19 Exposure Response Date Recorded In the last 10 days, have yo u been in contact with someone who was confirmed or suspected to have Coronavirus/COVID-19? No / Unsure 08/21/2022 10:04 AM EST documented as of this encounter Plan of Treatment Upcoming Encounters Date Type Department Care Team ([facility] Contact Info) Description 12/23/2024 10:30 AM EDT Office Visit [facility] MEDICINE [address] [place] [address] [phone] Roberto Koehler MD [address] [place], [place] [phone] documented as of this encounter Visit Diagnoses Not on filedocumented in this encounter Care Teams Manager Immunology Relationship Specialty Start Date End Date Roberto Koehler MD [address] [place] [address] [phone] PCP - General Internal Medicine 06/29/14 documented as of this encounter
--- OUTSIDE RECORDS SUMMARY | 2024-10-06 15:15 | XMS_ITS | Encounter Summary ---
Author Organization [employer] Address [address] [facility] 7t [place] [address] Care Team Providers Care Purchasing Administrative Assistant Name Role Phone Roberto Koehler MD Primary Care Provide r Encounter Details Date Type Department Care Team (Latest Contact Info) Description 09/16/2024 Travel Social History Tobacco Use Types Packs/Day Years Used Date Smoking Tobacco: Every Day Cigarettes Passive Smoke Exposure: Current Smokeless Tobacco: Never Alcohol Use Standard Drinks/Week Comments Never 0 (1 standard drink = 0.6 oz pur e alcohol) Depression Answer Date Recorded Patient Health Questionnaire-9 Score 1 12/18/2023 Patient Health Questionnaire-9 Score 1 12/18/2023 Last PHQ-9: Questionnaire Data Not on file 0 12/18/2023 Housing Stability Answer Date Recorded What is your housing situation today? I have laurie henson 12/10/[address] you li ve. Do you have problems with any of the following? None of the above 12/10/2023 Food Insecurity Answer Date Recorded Within the past 12 months, y ou worried that your food would run out before you got money to buy more: Never True 12/10/2023 Within the past 12 months,th e food you bought just didn't last and you didn't have enough money to get more: Never True Transportation Answer Date Recorded In the past 12 months, has l ack of transportation kept you from medical appts, meetings, work or from getting things needed for daily living? No 12/10/2023 Utilities Answer Date Recorded In the past 12 months, has t he electric, gas, oil or water company threatened to shut off services in your home? No 12/10/2023 Depression Answer Date Recorded Patient Health Questionnaire-2 Score 0 12/18/2023 Comments Unknown Sex and Gender Information Value Date Recorded Sex Assigned at Female 06/17/2022 10:15 AM EDT Legal Sex Female 10:15 AM EDT Gender Identity Female 06/17/2022 10:15 AM EDT Sexual Orientation Straight 06/17/2022 10 :15 AM EDT documented as of this encounter Plan of Treatment Upcoming Encounters Date Type Department Care Team (Late st Contact Info) Description 12/23/2024 10:30 AM EDT Office Visit [facility] MEDICINE [address] [place] [phone] Roberto Koehler MD [address] [place] [phone] documented as of this encounter Visit Diagnoses Not on filedocumented in this encounter Additional Health Concerns Assessment Noted Time PHQ-9 Depression Total Score: 1 12/18/19 24 10:46 AM EDT documented as of this encounter Care Teams Purchasing Administrative Assistant Relationship Specialty Start Date End Date Roberto Koehler MD [address] [place] [phone] PCP - General Internal Medicine 06/29/14 documented as of this encounter
--- OUTSIDE RECORDS SUMMARY | 2024-10-06 15:15 | XMS_ITS | Encounter Summary ---
Author Organization [employer] Address [address] [facility] 7t [place] [address] Care Team Providers Care Twine Winder Name Role Phone Roberto Koehler MD Primary Care Provide r Reason for Visit * Reason Comments Med Refill Encounter Details Date Type Department Care Team ([facility] Contact Info) Description 12/29/2023 Refill [facility] MEDICINE [address] [place], [place] [phone] Roberto Koehler MD [address] [place], [place] [phone] Rash Social History Tobacco Use Types Packs/Day Years [...] Description 12/23/2024 10:30 AM EDT Office Visit [facility] MEDICINE [address] [place] [address] Roberto Koehler MD [address] [place] [address] documented as of this encounter Visit Diagnoses Diagnosis Rash Rash and other nonspecific skin eruption documented in this encounter Additional Health Concerns Assessment Noted Time PHQ-9 Depression Total Score: 1 12/18/19 24 10:46 AM EDT documented as of this encounter Care Teams Twine Winder Relationship Specialty Start Date End Date Roberto Koehler MD [address] [place] [address] PCP - General Internal Medicine 06/29/14 documented as of this encounter
--- OUTSIDE RECORDS SUMMARY | 2024-10-06 15:15 | XMS_ITS | Encounter Summary ---
Author Organization [employer] Address [address] [facility] 7t [place] [address] Care Team Providers Care Customer Operations Specialist Name Role Phone Roberto Koehler MD Primary Care Provide r Reason for Visit * Reason Onset Date Comments Med Refill 03/05/2023 Encounter Details Date Type Department Care Team ([facility] st Contact Info) Description 03/05/[address] [facility] MEDICINE [address] [place], [place] [phone] Roberto Koehler MD [address] [place], [place] [phone] Med Refill Social History Tobacco Use Types Packs/Day Years [...] AM EDT documented as of this encounter Miscellaneous Notes * Telephone Encounter - Pepe Chaudhary - 03/05/2023 9:57 AM EDT Tc from pt requesting a med refill for levothyroxine (Synthroid, Levoxyl) 100 MCG tablet documented in this encounter Plan of Treatment Upcoming Encounters Date Type Department Care Team (Late st Contact Info) Description 12/23/2024 10:30 AM EDT Office [address] [facility] MEDICINE [address] [place], [place] [phone] Roberto Koehler MD [address] [place] [address] documented as of this encounter Visit Diagnoses Not on filedocumented in this encounter Care Teams Customer Operations Specialist Relationship Specialty Start Date End Date Roberto Koehler MD [address] [place] [address] PCP - General Internal Medicine 06/29/14 documented as of this encounter
--- OUTSIDE RECORDS SUMMARY | 2024-10-06 15:15 | XMS_ITS | Encounter Summary ---
Author Organization [employer] Address [address] [facility] 7t [place] [address] Care Team Providers Care Plan Rep Name Role Phone Roberto Koehler MD Primary Care Provide r Reason for Visit * Reason Onset Date Comments Med Refill 09/09/2023 Encounter Details Date Type Department Care Team ([facility] st Contact Info) Description 09/09/2023 Telephone [facility] MEDICINE [address] [place] [address] [phone] Roberto Koehler MD [address] [place], [place] [phone] Med Refill Social History Tobacco Use Types [...] encounter Miscellaneous Notes * Telephone Encounter - Leora Alvarado LPN - 09/09/2023 8:49 AM EST Medication pended to PCP. * Telephone Encounter - Sven Oquendo - 09/09/2023 8:33 AM EST TC from pt requesting medication refill. Medications needing refill : levothyroxine (Synthroid, Levoxyl) 100 MCG tablet To be sent to: [id number] - [place], [place] - [address] [place] [address] documented in this encounter Plan of Treatment Upcoming Encounters Date Type Department Care Team (Late st Contact Info) Description 12/23/2024 10:30 AM EDT Office Visit [facility] MEDICINE [address] [place] [phone] Roberto Koehler MD [address] [place] [phone] documented as of this encounter Visit Diagnoses Not on filedocumented in this encounter Care Teams Plan Rep Relationship Specialty Start Date End Date Roberto Koehler MD [address] [place] [address] [phone] PCP - General Internal Medicine 06/29/14 documented as of this encounter
--- OUTSIDE RECORDS SUMMARY | 2024-10-06 15:15 | XMS_ITS | Encounter Summary ---
Author Organization [employer] Address [address] [facility] 7t [place] [address] Care Team Providers Care Sales Operations Name Role Phone Roberto Koehler MD Primary Care Provide r Encounter Details Date Type Department Care Team ([facility] Contact Info) Description 12/25/2022 Abstract [facility] MEDICINE [address] [place], [place] [phone] Roberto Koehler MD [address] [place], [place] [phone] Social History Tobacco Use Types Packs/Day Years [...] Encounters Date Type Department Care Team (Late Contact Info) Description 12/23/2024 10:30 AM EDT Office Visit [facility] MEDICINE [address] [place] [address] Roberto Koehler MD [address] [place], [place] [phone] documented as of this encounter Procedures Procedure Name Priority Date/Time Associated Diagnosis Comments COLONOSCOPY Routine 12/22/2012 documented in this encounter Results * Hm Colonoscopy (12/22/2012) Colonoscopy Normal Normal 12/22/2012 Alexa Carmen Ng - 12/22/2012 3:04 PM EDT Recommended 10 year follow up Historical Provider HEALTH MAINTENANCE Final Result documented in this encounter Visit Diagnoses Not on filedocumented in this encounter Care Teams Sales Operations Relationship Specialty Start Date End Date Roberto Koehler MD [address] [place] [phone] PCP - General Internal Medicine 06/29/14 documented as of this encounter
--- OUTSIDE RECORDS SUMMARY | 2024-10-06 15:15 | XMS_ITS | Clinical Summary ---
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 START DAY 1 PRE-OP 023 Active rosuvastatin (Crestor) 10 MG tablet Take 10 mg by mouth Once per day. 024 Active acetaminophen (Tylenol Extra Strength) 500 MG tabletIndications :Acute nonintractable headache, unspecified headache type Take 1 tablet (500 mg) by mouth every 8 (eight) hours if needed for mild pain. 60 tablet 024 Active Diclofenac Sodium 1 % gel APPLY 2 GRAMS TOPICALLY FOUR TIMES A DAY 350 g 2 024 Active hydroCHLOROthiazi de (HYDRODiuril) 25 MG tabletIndications :Primary hypertension TAKE ONE TABLET BY MOUTH EVERY DAY 90 tablet 1 025 Active levothyroxine (Synthroid, Levoxyl) 100 MCG tabletIndications :Acquired hypothyroidism Take 1 tablet (100 mcg) by mouth in the morning. 90 tablet 1 025 Active lisinopril 20 MG tabletIndications :Primary hypertension Take 1 tablet (20 mg) by mouth Once per day. 30 tablet 6 025 Active fluticasone (Flonase) 50 MCG/ACT nasal sprayIndications: Seasonal allergies Administer 1-2 sprays into each nostril Once per day. Shake gently. Before first use, prime pump. After use, clean tip and replace cap. 16 g 2 025 Active cetirizine (ZyrTEC) 10 MG tabletIndications :Rash,Seasonal allergies Take 1 tablet (10 mg) by mouth Once per day. 30 tablet 2 025 2024 Active cetirizine (ZyrTEC) 10 MG tabletIndications :Rash Take 1 tablet (10 mg) by mouth Once per day. 30 tablet 2 024 2024 Discontinued(R eorder (will not trigger notification to Pharmacy)) levothyroxine (Synthroid, Levoxyl) 100 MCG tabletIndications :Acquired hypothyroidism Take 1 tablet (100 mcg) by mouth in the morning. 90 tablet 1 024 2024 Discontinued(R eorder (will not trigger notification to Pharmacy)) lisinopril 10 MG tabletIndications :Primary hypertension Take 1 tablet (10 mg) by mouth Once per day. 30 tablet 6 024 2024 Discontinued(R eorder (will not trigger notification to Pharmacy)) Active Problems Problem Noted Date Diagnosed Date Acute nonintractable headache 06/17/2024 Assessment & Plan (09/16/2024 9:18 AM EST): Pt with previous c/o headache Neuro exam normal EARLENE elevated, will attempt to control BP CT brain 06/2024 FINDINGS: No acute intracranial hemorrhage. No mass effect or midline shift. No parenchymal lesion. The alexandre-white differentiation is maintained. No extra-axial fluid collection. The ventricles and sulci are unremarkable. The basal cisterns are patent. The calvarium is intact. The visualized paranasal sinuses and mastoid air cells are clear. 3 month follow up or sooner if symptoms do not improve or worsen Assessment & Plan (06/17/2024 11:21 AM EDT): Pt with c/o headache described when sever 5-7/10 mainly right sided, not associated with any other symptoms for > 1 month now Neuro exam normal EARLENE elevated, will attempt to control BP CT brain to rule out intracranial pathology 3 month follow up or sooner if symptoms do not improve or worsen Thyroid nodule 06/17/2024 Assessment & Plan (06/17/2024 11:15 AM EDT): Thyroid US 05/2024 showed: Left midpole TR 5 nodule, Follow up ultrasound every year for 5 years if 0.5 to 0.9 cm in maximum dimension. Rash 12/29/2023 Assessment & Plan (01/27/2024 3:28 PM EDT): Patient with persistent rash Previously thought that History, distribution and exam were consistent with bed bug bites. No evidence of super infection. Pt denies known infestation. 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 Missed dermatology appointment Assessment & Plan (12/29/2023 11:01 AM EDT): History, distribution and exam consistent with bed bug bites. No evidence of super infection. Pt denies known infestation. Advise avoid itching if possible, trial of steroid cream. Looks for evidence of infestation and speak to [facility] about fumigation. She has derm appointment referral from 12/18/23. Return if symptoms worsen or do not improve. She agrees with the plan. Pulmonary nodules 12/18/2023 Assessment & Plan (04/01/2024 9:12 AM EDT): Pt here for a follow up Pt had an incidental finding on Chest x-ray that was abnormal reason why a Chest CT was performed, 2018 CT showed: Left hilar yosi calcifications are noted consistent with prior granulomatous disease. 2. Subtle, asymmetric thickening of the left lateral and posterior tracheal wall. This could be inflammatory in nature, though underlying malignancy could potentially have a similar appearance, and correlation with bronchoscopy may be helpful. 3. Nonspecific lung nodules, measuring up to 5 mm. 4. Feathery soft tissue attenuation in the anterior mediastinum, suggestive of thymic hyperplasia. Pt was seen by Dr Springer Outside Maintenance Worker in 10/2017 and he recommended f/u in 6 months, it does not seem like patient followed up Repeat Chest CT done 01/22/2024 showed: 1. Stable pulmonary nodules in both lungs measuring up to 5 mm. No change and no new nodules. No further follow-up required. 2. Mildly increasing linear scarring/atelectasis with associated bronchiectasis in the right middle lobe. This is likely post inflammatory. 3. Mild bronchiectasis in both lower lobes without bronchial wall thickening. 4. Feathery appearance of the anterior mediastinal fat consistent with thymic hyperplasia. 5. Stable hemangiomas in segment 4A and segment 7 of the liver. 6. No tracheal abnormality on today's examination. Pt was seen by the office of Pulmonology 03/29/2024 who referred her to thoracic given the findings of thymic hyperplasia and will continue to follow up with them. Assessment & Plan (01/27/2024 12:11 PM EDT): Pt had an incidental finding on Chest x-ray that was abnormal reason why a Chest CT was performed, 2018 CT showed: Left hilar yosi calcifications are noted consistent with prior granulomatous disease. 2. Subtle, asymmetric thickening of the left lateral and posterior tracheal wall. This could be inflammatory in nature, though underlying malignancy could potentially have a similar appearance, and correlation with bronchoscopy may be helpful. 3. Nonspecific lung nodules, measuring up to 5 mm. 4. Feathery soft tissue attenuation in the anterior mediastinum, suggestive of thymic hyperplasia. Pt was seen by Dr Springer Outside Maintenance Worker in 10/2017 and he recommended f/u in 6 months, it does not seem like patient followed up Chest CT result pending done 01/22/2024 Assessment & Plan (12/18/2023 11:03 AM EDT): Pt had an incidental finding on Chest x-ray that was abnormal reason why a Chest CT was performed, 2018 CT showed: Left hilar yosi calcifications are noted consistent with prior granulomatous disease. 2. Subtle, asymmetric thickening of the left lateral and posterior tracheal wall. This could be inflammatory in nature, though underlying malignancy could potentially have a similar appearance, and correlation with bronchoscopy may be helpful. 3. Nonspecific lung nodules, measuring up to 5 mm. 4. Feathery soft tissue attenuation in the anterior mediastinum, suggestive of thymic hyperplasia. Pt was seen by Dr Springer Outside Maintenance Worker in 10/2017 and he recommended f/u in 6 months, it does not seem like patient followed up Previous visit I recommended to repeat Chest CT and this has yet to be done, I have asked once again this to be scheduled randy. Pt does not seem concerned Lesion of liver greater than 1 cm in diameter with no liver disease or history of malignant neoplasm 12/18/2023 Assessment & Plan (12/18/2023 11:04 AM EDT): Hx liver lesion: on a CT of [id number] there was an incidental finding of: Low-density lesions in the liver, with nonspecific CT appearance. These could reflect benign lesions such as hemangiomas, though a malignant etiology cannot be entirely excluded in the proper clinical setting. MRI was recommended and showed: 2 hepatic lesions demonstrate nonaggressive features likely partially sclerosed hemangioma. Left adrenal nodule low suspicion although strictly speaking nonspecific. Recommend follow-up in 6 months for further evaluation of both of these findings. this was done 07/23/2018 and showed: Stable subtle T2 hyperintense subcapsular lesions segment 4 left hepatic lobe and segment 7 right hepatic lobe demonstrate enhancement pattern most in keeping with hepatic hemangiomas. 2. Subtle suggestion of tiny subcapsular splenic hemangioma has also remained stable. [facility] care 12/18/2023 Assessment & Plan (04/01/2024 9:14 AM EDT): Mammogram: 01/18/2024 Normal Pap Smear: s/p NITZA and BSOO 05/2014 Dr Lea Colonoscopy: 12/22/12 normal (one hyperplastic polyp), repeat in 10 years. Pt was seen by Amanad Jennings 01/2024 who is scheduling a follow up Colonoscopy Tdap: 05/10/2011 Assessment & Plan (01/27/2024 12:14 PM EDT): Mammogram: 01/18/2024 Normal Pap Smear: s/p NITZA and BSOO 05/2014 Dr Lea Colonoscopy: 12/22/12 normal (one hyperplastic polyp), repeat in 10 years.Dr Montes Tdap: 05/10/2011 Assessment & Plan (12/18/2023 11:05 AM EDT): Mammogram: 12/30/2022 Normal Pap Smear: s/p NITZA and BSOO 05/2014 Dr Lea Colonoscopy: 12/22/12 normal (one hyperplastic polyp), repeat in 10 years.Dr Montes Vaccines: Flu shot: Tdap: 05/10/2011 Skin lesion 12/18/2023 Assessment & Plan (12/18/2023 11:27 AM EDT): Pt with a hyperpigmented skin lesion right abdominal area, brownish, approximately 5 mm Likely benign, Will refer to [facility] Derm clinic given that pt reports is increasing in size Primary hypertension 08/01/2023 Assessment & Plan (09/16/2024 9:37 AM EST): Here for a follow up BP elevated On hydrochlorothiazide 25 mg po daily and Lisinopril 10 mg po daily [facility] 12/19/2023 Normal Plan: Increase Lisinopril to 20 mg po daily Follow up 4 months Assessment & Plan (06/17/2024 11:08 AM EDT): Here for a follow up BP elevated On hydrochlorothiazide 25 mg po daily [facility] 12/19/2023 Normal Plan: Add Lisinopril 10 mg po daily Follow up 4 months Assessment & Plan (04/01/2024 10:06 AM EDT): Here for a follow up BP uncontrolled On hydrochlorothiazide 25 mg po daily [facility] 12/19/2023 Normal Plan: Continue with current regimen Follow up 4 months Assessment & Plan (01/27/2024 3:24 PM EDT): Here for a follow up BP uncontrolled On hydrochlorothiazide 12.5 mg po daily BMP 12/19/2023 Normal Plan: Increase hydrochlorothiazide to 25 mg po daily Follow up 4 months Assessment & Plan (12/18/2023 11:23 AM EDT): Newly diagnosed HTN Plan: Start hydrochlorothiazide 12.5 mg po daily Obtain BMP Follow up 4 weeks Assessment & Plan (08/01/2023 9:29 AM EST): I advise low Na diet F/u with PCP Onychomycosis of toenail 04/25/2015 Tobacco dependence syndrome 03/01/2013 Vitamin D deficiency 03/01/2013 Hypothyroidism 03/12/2012 Assessment & Plan (04/01/2024 10:17 AM EDT): Most recent TSH from 12/19/2023 was within normal limits Continue Levothyroxine 100 mcg po daily. US thyroid ordered Follow up 4 months Assessment & Plan (01/27/2024 12:13 PM EDT): Most recent TSH from 12/19/2023 was within normal limits Continue Levothyroxine 100 mcg po daily. Follow up 4 months Assessment & Plan (12/18/2023 11:00 AM EDT): Most recent TSH from 10/21/2019 was within normal limits Continue Levothyroxine 100 mcg po daily. Today will repeat Anemia 03/12/2012 Obesity 03/12/2012 Assessment & Plan (01/27/2024 12:15 PM EDT): Patient has been counseled and educated about diet and exercise. Personal goal of weight loss discussedPatient has comorbidity of: HTN Premenopausal menorrhagia 03/12/2012 Resolved Problems Problem Noted Date Diagnosed Date Resolved Date Influenza A 08/01/2023 12/18/2023 Assessment & Plan (08/01/2023 9:28 AM EST): continue to drink plenty of fluids Rest acetaminophen PRN Letter for work will be provided Encounters Date Type Department Care Team Description 09/16/2024 9:15 AM EST Office Visit [facility] [address] [place] [address] Roberto Koehler MD Primary hypertension (Primary Dx); Acute nonintractable headache, unspecified headache type; Rash; Seasonal allergies 09/16/2024 Travel 09/07/2024 Refill [facility] [address] [place] [address] Roberto Koehler MD Acquired hypothyroidism 09/03/2024 Telephone [facility] [address] [facility] [place] [address] Roberto Koehler MD Chart Prep 08/23/2024 Refill [facility] [address] [place] [address] Roberto Koehler MD Primary hypertension 08/23/2024 Refill [facility] [address] [place] [address] Roberto Koehler MD Primary hypertension 08/20/2024 11:30 AM EST Clinical Support [facility] [address] [place] [address] Bebe Valladares LPN Exposure to confirmed case of COVID-19 (Primary Dx) 08/20/2024 Travel 08/13/2024 10:15 AM EST Office Visit [facility] [address] [place] [address] Glen Mccoy MD Sebaceous gland hyperplasia (Primary Dx) 08/13/2024 Travel 07/24/2024 Refill [facility] [address] [place] [id number] Harper Leiva FNP 07/07/[address] [address] Roberto Koehler MD from Last 3 Months Immunizations Name Administration Dates Next Due Influenza injectable quadriv alent IIV4 with preservative 06/21/2015 Influenza injectable quadriv alent preservative free 06/25/2022,05/13/2019,11/26/2016,2014 Influenza, IIV3, injectable 05/10/2011, 0 Influenza, Split (incl. alisha fied surface antigen) 07/26/2013 Influenza, seasonal, injecta ble, preservative free 06/17/2024 Pneumococcal Conjugate PCV 20 04/01/2024 TD (adult), 2 Lf tetanus tox oid, preservative free, adsorbed 04/01/2024,02/27/1995 Tdap 05/10/2011 Family History Medical History Relation Name Comments Diabetes Brother Heart disease Brother Hyperlipidemia Brother Hypertension Brother Relation Name Status Comments Brother Social History Tobacco Use Types Packs/Day Years Used Date Smoking Tobacco: Every Day Cigarettes Passive Smoke Exposure: Current Smokeless Tobacco: Never Tobacco Cessation:Ready to Q uit: Not Asked; Counseling Given: Not Answered Alcohol Use Standard Drinks/Week Comments Never 0 [...] Orientation Straight 06/17/2022 10 :15 AM EDT Last Filed Vital Signs Vital Sign Reading Time Taken Comments Blood Pressure 147/89 09/16/2024 9:23 AM EST Pulse 88 09/16/2024 9:23 AM EST Temperature 35.5 ??C (95.9 ??F) 09/16/2024 9:23 AM ES T Respiratory Rate 16 09/16/2024 9:23 AM EST Oxygen Saturation 98% 09/16/2024 9:23 AM EST Inhaled Oxygen Concentration - - Weight 81.8 kg (180 lb 6.4 oz) 09/16/2024 9:23 A M EST Height 154.9 cm (5' 1 ) 09/16/2024 9:23 AM EST Body Mass Index 34.09 09/16/2024 9:23 AM EST Plan of Treatment Upcoming Encounters Date Type Department Care Team ([facility] st Contact Info) Description 12/23/2024 10:30 AM EDT Office Visit [facility] [address] [facility] [place] [place] [address] Roberto Koehler MD [address] [facility] [place] [address] Health Maintenance Due Date Last Done Comments CT Colonography 1960 FIT DNA/Cologuard 1960 FIT 1960 FOBT 1960 Sigmoidoscopy 1960 Hepatitis A Vaccines (1 of 2 - Risk 2-dose series) 1981 Zoster Vaccines (1 of 2) 01/15/2012 Hepatitis B Vaccines (1 of 3 - Risk 3-dose series) 2022 RSV Patients and Patients Aged 60 years or older (1 - Risk 60-74 years 1-dose series) 2022 Colonoscopy 12/22/2022 12/22/2012 Colorectal Cancer Screening 12/22/2022 COVID-19 Vaccine ( season) 2024 06/25/2022, 01/10/2021, 12/13/2020 Depression Screening 12/17/2024 12/18/2023, 12/18/19 24 SDOH Screening 12/17/2024 12/18/2023 Mammogram 01/04/2025 01/05/2024, 12/16, 11/19/2021, Additional history exists Tobacco Screening 02/22/2025 02/23/2024 Alcohol/Substance Use Screening 06/17/2025 06/17/2024 Lipid Panel 12/18/2028 12/19/2023 DTaP/Tdap/Td Vaccines (3 - Td or Tdap) 04/01/2034 04/01/2024, 05/10/2011, 02/27/1995 HIV Screening Completed 10/21/2019 Hepatitis C Screening Completed 10/21/2019 Pneumococcal Vaccine: 50+ Years Completed 04/01/2024 Influenza Vaccine Completed 06/17/2024, , 05/13/2019, Additional history exists HIB Vaccines Aged Out No longer eligi ble based on patient's age to complete this topic HPV Vaccines Aged Out No longer eligi ble based on patient's age to complete this topic IPV Vaccines Aged Out No longer eligi ble based on patient's age to complete this topic Meningococcal Vaccine Aged Out No gene braulio eligible based on patient's age to complete this topic RSV under 20 months Aged Out No longe r eligible based on patient's age to complete this topic Rotavirus Vaccines Aged Out No longer eligible based on patient's age to complete this topic Procedures Procedure Name Priority Date/Time Associated Diagnosis Comments POCT RAPID COVID ANTIGEN Routine 08/20/2024 11:43 AM EST Exposure to confirmed case of COVID-19 CT HEAD WO CONTRAST Routine 07/14/2024 7 :53 AM EST Acute nonintractable headache, unspecified headache type BI MAMMOGRAM SCREENING TOMOSYNTHESIS BILATERAL Routine 01/05/2024 12:25 PM EDT LIPID PANEL, STANDARD Routine 12/19/2023 8:54 AM EDT Acquired hypothyroidism ZZZ HISTORICAL HEPATITIS C ANTIBODY RFLX Routine 10/21/2019 8:30 AM EST ZZZ HISTORICAL HIV AB/AG Routine 10/21/2019 8:30 AM EST HM COLONOSCOPY Routine 12/22/2012 from Last 3 Months or Most Recently Relevant to Health Maintenance Results * POCT Rapid COVID Ag (08/20/2024 11:43 AM EST) Rapid COVID Ag Negative Swab 08/20/2024 11:4 3 AM EST Doreen Jean MD POINT OF CARE TEST ENTER/ED IT ORDERABLES Final Result * CT Head w/o Contrast (07/14/2024 7:53 AM EST) Anatomical Region Laterality Modality Head, Neck Computed Tomogra phy 07/14/2024 7:53 AM EST Narrative 07/15/2024 9:27 AM EST ? [facility] ?[address] ?[place] [address] ? CT Scan Report ? Signed ? Patient: Jett,Nguyen A ?MR#: [id number] ?? [id number] ? : 1960 ?Acct:[id number] ? Age/Sex: 64 / F ?ADM Date: 07/14/24 ? Loc: HO.CT ? Attending Dr: Roberto Mckinney MD ? Ordering Physician: Roberto Mckinney MD ?? Date of Service: 07/14/24 ?? Procedure(s): CT head/brain wo IV con ?? Accession Number(s): [id number] ? cc: Roberto Mckinney MD ? EXAMINATION: ?? CT HEAD WITHOUT CONTRAST ? CLINICAL INFORMATION: ?? Persistent headaches. ? COMPARISON: ?? None available. ? TECHNIQUE: ?? Contiguous axial imaging was performed from the skull base to vertex ?? without intravenous administration of contrast. ? This CT examination was performed using dose optimization techniques as ?? appropriate, variously including the following: ?? *Automated exposure control ?? *Adjustment of mA and/or kV according to patient size (this includes ?? techniques or standardized protocols for targeted exams where dose is ?? matched to indication/reason for exam; i.e. extremities or head) ?? *Use of iterative reconstruction technique ? DLP: ?? 856 mGy-cm ? FINDINGS: ? No acute intracranial hemorrhage. No mass effect or midline shift. No ?? parenchymal lesion. The alexandre-white differentiation is maintained. No ?? extra-axial fluid collection. ? The ventricles and sulci are unremarkable. The basal cisterns are ?? patent. ? The calvarium is intact. The visualized paranasal sinuses and mastoid ?? air cells are clear. ? CT/CT head/brain wo IV con ?? IMPRESSION: ?? No acute intracranial hemorrhage or mass effect. ? Electronically signed by: ??Christian Hart MD ??07/15/2024 09:24 AM EST ?? RP ? Dictated By: ?Christian Hart MD ? Signed By: ?<Electronically signed by Christian Hart MD in OV> ?07/15/24 0924 ? DD/ 0753 ? TD/TT: 07/14/24 0812 ? Verification Specialist: ? Procedure Note Donotuseinterpreter, Image - 07/15/[address] [address] [address] Scan Report Signed Patient: Nguyen Frausto AMR#: [id number] : 1960cct:[id number] Age/Sex: 64 / FADM Date: 07/14/24 Loc: HO.CT Attending Dr: Roberto Mckinney MD Ordering Physician: Roberto Mckinney MD Date of Service: 07/14/24 Procedure(s): CT head/brain wo IV con Accession Number(s): [id number] cc: Roberto Mckinney MD EXAMINATION: CT HEAD WITHOUT CONTRAST CLINICAL INFORMATION: Persistent headaches. COMPARISON: None available. TECHNIQUE: Contiguous axial imaging was performed from the skull base to vertex without intravenous administration of contrast. This CT examination was performed using dose optimization techniques as appropriate, variously including the following: *Automated exposure control *Adjustment of mA and/or kV according to patient size (this includes techniques or standardized protocols for targeted exams where dose is matched to indication/reason for exam; i.e. extremities or head) *Use of iterative reconstruction technique DLP: 856 mGy-cm FINDINGS: No acute intracranial hemorrhage. No mass effect or midline shift. No parenchymal lesion. The alexandre-white differentiation is maintained. No extra-axial fluid collection. The ventricles and sulci are unremarkable. The basal cisterns are patent. The calvarium is intact. The visualized paranasal sinuses and mastoid air cells are clear. CT/CT head/brain wo IV con IMPRESSION: No acute intracranial hemorrhage or mass effect. Electronically signed by: Christian Hart MD 07/15/2024 09:24 AM [facility] Dictated By: Christian Hart MD Signed By: <Electronically signed by Christian Hart MD in OV> 07/15/24923 DD/ 0753 TD/TT: 07/14/24 0812 Verification Specialist: SR us Roberto Oquendo MD IMG CT PROCEDURES Fin al Result * BI Mammogram Screening Tomosynthesis Bilateral (01/05/2024 12:25 PM EDT) Anatomical Region Laterality Modality Breast Bilateral Mammography 01/05/2024 12:2 5 PM EDT Narrative 01/18/2024 7:19 PM EDT ? [facility] ? [address] ?[place] [address] ? Mammography Report ? Signed ? Patient: Nguyen Frausto ?MR#: [id number] ?? [id number] ? : 1960 ?Acct:[id number] ? Age/Sex: 63 / F ?ADM Date: 01/05/24 ? Loc: HO.MAMMO ? Attending Dr: Roberto Mckinney MD ? Ordering Physician: Roberto Mckinney MD ?Resu ?? lts: 1Negative ? Date of Service: 01/05/24 ?Follow Up: 1 Year From Orig ?? inal Mammogram ? Procedure(s): MM tomosynthesis screening BI ?? Accession Number(s): [id number] ? cc: Roberto Mckinney MD ? EXAMINATION: ?? MM SCREENING DIGITAL BREAST TOMOSYNTHESIS, BILATERAL ? CLINICAL INFORMATION: ? Screening. Asymptomatic. ? COMPARISON: ?? Mammography: This study is compared with prior exams dating back to ?? 2018. ? TECHNIQUE: ?? Digital breast tomosynthesis is performed in both the craniocaudal and ?? mediolateral oblique views along with computer-aided detection (CAD). ?? Synthesized 2D images are generated from the tomosynthesis. ? FINDINGS: ?? There are scattered areas of fibroglandular density (ACR BI-RADS breast ?? composition Category b). ? There are no significant masses, abnormal calcifications, or other ?? abnormalities. ? MM/MM tomosynthesis screening BI ?? IMPRESSION: ?? No mammographic evidence of malignancy. ? ASSESSMENT: ? BI-RADS BI-RADS 1 - Negative ? RECOMMENDATION: ?? Routine annual mammography screening. ? 1 year F/U ? This examination should not preclude the clinical evaluation of a ?? suspicious palpable abnormality. ? This patient's information was entered into a reminder system with a ?? target due date for their next mammogram. ? Dictated By: ?Kimberly Calix MD ? Signed By: ?<Electronically signed by Kimberly Calix MD in OV> ? 01/18/24 1915 ? DD/ 1225 ? TD/TT: ? Verification Specialist: ? Procedure Note Latesha, Image - 01/18/2024 [facility] [address] [place] [address] [place] [address] Mammography Report Signed Patient: Nguyen Frausto AMR#: [id number] : 2Acct:[id number] Age/Sex: 63 / FADM Date: 01/05/24 Loc: [facility] Attending Dr: Roberto Mckinney MD Ordering Physician: Roberto Mckinney MDResu lts: 1Negative Date of Service: 01/05/24Follow Up: 1 Year From Orig inal Mammogram Procedure(s): MM tomosynthesis screening BI Accession Number(s): [id number] cc: Roberto Mckinney MD EXAMINATION: MM SCREENING DIGITAL BREAST TOMOSYNTHESIS, BILATERAL CLINICAL INFORMATION: Screening. Asymptomatic. COMPARISON: Mammography: This study is compared with prior exams dating back to 2018. TECHNIQUE: Digital breast tomosynthesis is performed in both the craniocaudal and mediolateral oblique views along with computer-aided detection (CAD). Synthesized 2D images are generated from the tomosynthesis. FINDINGS: There are scattered areas of fibroglandular density (ACR BI-RADS breast composition Category b). There are no significant masses, abnormal calcifications, or other abnormalities. MM/MM tomosynthesis screening BI IMPRESSION: No mammographic evidence of malignancy. ASSESSMENT: BI-RADS BI-RADS 1 - Negative RECOMMENDATION: Routine annual mammography screening. 1 year F/U This examination should not preclude the clinical evaluation of a suspicious palpable abnormality. This patient's information was entered into a reminder system with a target due date for their next mammogram. Dictated By: Kimberly Calix MD Signed By: <Electronically signed by Kimberly Calix MD in OV> 01/18/24 1915 DD/ 1225 TD/TT: Verification Specialist: us Roberto Oquendo MD IMG BI PROCEDURES Wes kacie Result - Final * (ABNORMAL) Lipid Panel, Standard (12/19/2023 8:54 AM EDT) Triglycerides 78 <150 mg/dL [facility] Comment:Desirable Triglyceri de: less than 150 mg/dLBorderline High Triglyceride 150-199 mg/dLHigh Triglyceride: 200-499 mg/dLVery High Triglyceride: greater than or equal to 5OO mg/dL Cholesterol 160 <200 mg/dL [facility] Comment:Desirable Cholestero l: less than 200 mg/dLBorderline High Cholesterol: 200-239 mg/dLHigh Cholesterol: greater than 239 mg/dL LDL Cholesterol Calculated 100(H) <100 mg/dL [facility] Comment:Desirable LDL: less than 100 mg/dLNear Optimal/Above Optimal LDL: 110- 129 mg/dLBorderline High LDL: 130-159 mg/dLHigh LDL: 160-189 mg/dLVery High LDL: greater than or equal to 190 mg/dL HDL Cholesterol 45 >40 mg/dL [facility] Comment:Desirable HDL: great er than 40 mg/dL Note: This HDL assay may give artificially low results in patients with liver disease. Blood Venous blood specimen / Unknown 12/19/2023 8:54 AM EDT 12/19/2023 11:28 AM EDT Roberto Oquendo MD LAB BLOOD ORDERABLES Final Result [facility] [address] [place] [address] [phone] * HEPATITIS C ANTIBODY RFLX (10/21/2019 8:30 AM EST) HEPATITIS C ANTIBODY NONREACTIVE [facility] Comment: Antibodies to HCV not detected; does not exclude early acute HCV infection. 10/21/2019 8:30 AM EST Lele Locke MD HISTORICAL/NON ORDERABLE LABS Final Result Performing Organization Address [facility] Co de Phone Number [facility] [address] * HIV AB/AG (10/21/2019 8:30 AM EST) HIV AG/AB NONREACTIVE [facility] Comment: HIV-1 p24 Ag and/or HIV-1/HIV-2 Ab not detected. ?? A test result that is nonreactive does not exclude the possibility of exposure to or infection with HIV-1 and/or HIV-2. Nonreactive results in this assay for individuals with prior exposure to HIV-1 and/or HIV-2 may be due to antigen and antibody levels that are below the limit of detection of this assay. ?? The Aragon Re[employer] Man HIV Ag/Ab Combo assay result and supplemental assay results should be interpreted in conjunction with the patient's clinical presentation, history and other laboratory results. ??If the results are inconsistent with clinical evidence, additional testing is suggested to confirm the result. 10/21/2019 8:30 AM EST Historical Provider HISTORICAL/NON ORDERABLE LABS Final Result [facility] [address] * Hm Colonoscopy (12/22/2012) Colonoscopy Normal Normal 12/22/2012 Narrative Carmen Ng - 12/22/2012 3:04 PM EDT Recommended 10 year follow up us Historical Provider HEALTH MAINTENANCE Final Result from Last 3 Months or Most Recently Relevant to Health Maintenance Insurance [facility] Care Teams Digging Machine Operator Relationship Specialty Start Date End Date Roberto Koehler MD [address] [place] [phone] PCP - General Internal Medicine 06/29/14
--- OUTSIDE RECORDS SUMMARY | 2024-10-06 15:15 | XMS_ITS | Encounter Summary ---
Author Organization [employer] Address [address] [facility] 7t [place] [address] Care Team Providers Care Mission Worker Name Role Phone Roberto Koehler MD Primary Care Provide r Reason for Visit * Reason Comments Med Refill Encounter Details Date Type Department Care Team ([facility] Contact Info) Description 08/23/2024 Refill [facility] [address] [place], [place] [phone] Roberto Koehler MD [address] [place], [place] [phone] Primary hypertension Social History Tobacco Use Types Packs/Day Years [...] Description 12/23/2024 10:30 AM EDT Office Visit [facility] [address] [place] [address] Roberto Koehler MD [address] [place] [address] documented as of this encounter Visit Diagnoses Diagnosis Primary hypertension Unspecified essential hypertension documented in this encounter Additional Health Concerns Assessment Noted Time PHQ-9 Depression Total Score: 1 12/18/19 24 10:46 AM EDT documented as of this encounter Care Teams Mission Worker Relationship Specialty Start Date End Date Roberto Koehler MD [address] [place] [address] PCP - General Internal Medicine 06/29/14 documented as of this encounter
--- OUTSIDE RECORDS SUMMARY | 2024-10-06 15:15 | XMS_ITS | Encounter Summary ---
Author Organization [employer] Address [address] [facility] 7t [place] [address] Care Team Providers Care Shot Examiner Name Role Phone Roberto Koehler MD Primary Care Provide r Reason for Visit * Reason Onset Date Comments Med Refill 09/07/2024 Encounter Details Date Type Department Care Team ([facility] st Contact Info) Description 09/07/2024 Refill [facility] [address] [place], [place] [phone] Roberto Koehler MD [address] [place], [place] [phone] Acquired hypothyroidism Social History Tobacco Use Types Packs/Day Years [...] encounter Miscellaneous Notes * Telephone Encounter - Sohail Cardenas - 09/07/2024 9:06 AM EST TC from pt requesting medication refill. Medications needing refill: levothyroxine (Synthroid, Levoxyl) 100 MCG tablet To be sent to: [id number] documented in this encounter Plan of Treatment Upcoming Encounters Date Type Department Care Team (Late st Contact Info) Description 12/23/2024 10:30 AM EDT Office Visit [facility] [address] [place] [address] Roberto Koehler MD [address] [place] [address] documented as of this encounter Visit Diagnoses Diagnosis Acquired hypothyroidism Unspecified hypothyroidism documented in this encounter Additional Health Concerns Assessment Noted Time PHQ-9 Depression Total Score: 1 12/18/19 10:46 AM EDT documented as of this encounter Care Teams Shot Examiner Relationship Specialty Start Date End Date Roberto Koehler MD [address] [place] [address] PCP - General Internal Medicine 06/29/14 documented as of this encounter
--- OUTSIDE RECORDS SUMMARY | 2024-10-06 15:15 | XMS_ITS | Encounter Summary ---
Author Organization [employer] Address [address] [facility] 7t [place] [address] Care Team Providers Care Labor Union Business Representative Name Role Phone Roberto Koehler MD Primary Care Provide r Encounter Details Date Type Department Care Team (Latest Contact Info) Description 09/16/2024 9:15 AM EST Office Visit [facility] [address] [place], [place] [phone] Roberto Koehler MD [address] [place], [place] [phone] Primary hypertension (Primary Dx); Acute nonintractable headache, unspecified headache type; Rash; Seasonal allergies Social History Tobacco Use Types Packs/Day Years [...] AM EDT documented as of this encounter Last Filed Vital Signs Vital Sign Reading [...] Mass Index 34.09 09/16/2024 9:23 AM EST documented in this encounter Progress Notes * Roberto Oquendo MD - 09/16/2024 9:15 AM EST SUBJECTIVE Nguyen Frausto is a 64 y.o. female who presents for No chief complaint on file.. Hypertension This is a chronic problem. Pertinent negatives include no chest pain, headaches or shortness of breath. Review of Systems Constitutional: Negative for fever. HENT: Negative for sore throat. Respiratory: Negative for cough and shortness of breath. Cardiovascular: Negative for chest pain. Gastrointestinal: Negative for abdominal pain. Neurological: Negative for headaches. No Known Allergies OBJECTIVE Vitals: 09/16/24 0923 BP: (!) 147/89 BP Location: Right arm Patient Position: Sitting BP Cuff Size: Adult Pulse: 88 Resp: 16 Temp: 95.9 ??F (35.5 ??C) TempSrc: Temporal SpO2: 98% Weight: 180 lb 6.4 oz (81.8 kg) Height: 5' 1 (1.549 m) Physical Exam Vitals reviewed. Constitutional: Appearance: Normal appearance. HENT: Head: Normocephalic and atraumatic. Right Ear: External ear normal. Left Ear: External ear normal. Nose: Nose normal. Mouth/Throat: Mouth: Mucous membranes are moist. Eyes: Conjunctiva/sclera: Conjunctivae normal. Cardiovascular: Rate and Rhythm: Normal rate and regular rhythm. Pulmonary: Effort: Pulmonary effort is normal. Breath sounds: Normal breath sounds. Skin: General: Skin is warm. Neurological: Mental Status: She is alert. Mental status is at baseline. Assessment/Plan Problem List Items Addressed This Visit Primary hypertension - Primary Here for a follow up BP elevated On hydrochlorothiazide 25 mg po daily and Lisinopril 10 mg po daily [facility] 12/19/2023 Normal Plan: Increase Lisinopril to 20 mg po daily Follow up 4 months Relevant Medications lisinopril 20 MG tablet Other Relevant Orders Basic Metabolic Panel Acute nonintractable headache Pt with previous c/o headache Neuro exam [...] if symptoms do not improve or worsen Rash Relevant Medications cetirizine (ZyrTEC) 10 MG tablet Other Visit Diagnoses Seasonal allergies Relevant Medications fluticasone (Flonase) 50 MCG/ACT nasal spray cetirizine (ZyrTEC) 10 MG tablet documented in this encounter Miscellaneous Notes * Assessment & Plan Note - Roberto Oquendo MD - 09/16/2024 9:18 AM EST Associated Problem(s): Acute nonintractable headache Pt with previous c/o headache Neuro exam [...] if symptoms do not improve or worsen * Assessment & Plan Note - Roberto Oquendo MD - 09/16/2024 9:17 AM EST Associated Problem(s): Primary hypertension Here for a follow up BP elevated On hydrochlorothiazide 25 mg po daily and Lisinopril 10 mg po daily BMP 12/19/2023 Normal Plan: Increase Lisinopril to 20 mg po daily Follow up 4 months documented in this encounter Plan of Treatment Upcoming Encounters Date Type Department Care Team (Late st Contact Info) Description 12/23/2024 10:30 AM EDT Office Visit [facility] [address] [place] [address] Roberto Koehler MD [address] [place] [address] Scheduled Orders Name Type Priority Associated Diagnoses Orde r Schedule Basic Metabolic Panel Lab Routine Primary hypertension Ordered: 09/16/2024 documented as of this encounter Visit Diagnoses Diagnosis Primary hypertension- Primary Unspecified essential hypertension Acute nonintractable headache, unspecified headache type Rash Rash and other nonspecific skin eruption Seasonal allergies Allergic rhinitis, cause unspecified documented in this encounter Additional Health Concerns Assessment Noted Time PHQ-9 Depression Total Score: 1 12/18/19 24 10:46 AM EDT documented as of this encounter Care Teams Labor Union Business Representative Relationship Specialty Start Date End Date Roberto Koehler MD [address] [place] [address] PCP - General Internal Medicine 06/29/14 documented as of this encounter
--- NOTE | 2025-01-20 14:15 | P.CONAN_ITS ---
Documented by User: Aida Jain NP 01/20/25 14:15 HPI - Anesthesia Eval Consult details Narrative: 65yo F for Colonoscopy PMFSH Active Problems Active Problems: All Active Problems Right shoulder pain (Acute) Thymus hyperplasia (Acute) Nicotine dependence, cigarettes, uncomplicated (Acute) Bronchiectasis (Acute) Multiple pulmonary nodules (Acute) Seropositive rheumatoid arthritis (Acute) Bilateral hand pain (Acute) Past Medical History Medical History Menorrhagia Anemia Vitamin D deficiency Hypothyroidism Family History Family History Brother HTN (hypertension) Asthma Mother Asthma Father CVD (cardiovascular disease) Surgical History Surgical History Hx of hysterectomy Hx of tubal ligation Hx of section Social History Social History Household Members: Spouse and Children Housing: Apartment Alcohol intake: never Patient Tobacco Use Status: Current everyday Tobacco user Tobacco use type: Cigarette Cigarettes Per Day: 10 Years Smoked: 20 Advance Directives: No Advance Directives Information Provided: Yes Meds Allergies Allergy/AdvReac Type Severity Reaction Status Date / Time No Known Allergies Allergy Verified 01/21/25 11:01 [No Known Allergies*] Home Medications ?Medication ?Instructions ?Recorded ?Confirmed ?Last Taken ?Type hydrochlorothiazide 25 mg tablet 25 mg PO DAILY 02/09/24 01/21/25 01/21/25 History levothyroxine 100 mcg tablet 100 mcg PO QAM 03/29/24 01/21/25 Unknown History rosuvastatin 10 mg tablet 10 mg PO DAILY 03/29/24 01/21/25 Unknown History lisinopril 20 mg tablet 20 mg PO DAILY 01/21/25 01/21/25 01/21/25 History Exam Height,Weight and Vital Signs: Height 5 ft 1 in Weight 84.368 kg Assessment and Plan Assessment Anesthesia Assessment: Chart Reviewed Documented by User: Arina Seaman MD 01/21/25 11:03 [facility] Past Medical History Medical History Menorrhagia Anemia Vitamin D deficiency Hypothyroidism Family History Family History Brother HTN (hypertension) Asthma Mother Asthma Father CVD (cardiovascular disease) Family history of problems with anesthesia: No Surgical History Surgical History Hx of hysterectomy Hx of tubal ligation Hx of section History of Problems with Anesthesia: No Social History Social History Household Members: Spouse and Children Housing: Apartment Alcohol intake: never Patient Tobacco Use Status: Current everyday Tobacco user Tobacco use type: Cigarette Cigarettes Per Day: 10 Years Smoked: 20 Advance Directives: No Advance Directives Information Provided: Yes Meds Allergies Allergy/AdvReac Type Severity Reaction Status Date / Time No Known Allergies Allergy Verified 01/21/25 11:01 [No Known Allergies*] Home Medications ?Medication ?Instructions ?Recorded ?Confirmed ?Last Taken ?Type hydrochlorothiazide 25 mg tablet 25 mg PO DAILY 02/09/24 01/21/25 01/21/25 History levothyroxine 100 mcg tablet 100 mcg PO QAM 03/29/24 01/21/25 Unknown History rosuvastatin 10 mg tablet 10 mg PO DAILY 03/29/24 01/21/25 Unknown History lisinopril 20 mg tablet 20 mg PO DAILY 01/21/25 01/21/25 01/21/25 History Exam Airway Mallampati Class: II TM Dist: >3cm Neck ROM: Full Heart: rrr Lungs: cta Assessment and Plan Assessment Anesthesia Assessment: Anesthesia Plan Discussed Final Anesthetic Review Family History of Problems with Anesthesia: No History of Problems with Anesthesia: No NPO: Yes ASA Class: II Final Preanesthetic Review: No Changes in Pt Med Stat, Meds/Allgs Chart Reviewed and Consent Obtained/Reviewed Patient Risk: Low Procedure Risk: Low Anesthetic Plan Anesthetic Plan: MAC: Disposition: Standard PACU
[2025-01-21 10:39] VITALS: BMI 32.4
[2025-01-21] MEDS: Lactated Ringers 1,000 ML 100 ML IVCONT (10:43)
[2025-01-21 10:51] VITALS: BP 141/81; PULSE 94; RESP 18; TEMP 36.7; O2SAT 98
--- NOTE | 2025-01-21 12:07 | MHC.SHP ---
Pre-Procedural Eval Section A - 24 Hr Update-Section A only Date of Service: 01/21/25 The patient is an INPATIENT: No The patient has been examined within 24 hours of the surgical procedure. The History & Physical has been completed within 30 days and I have reviewed it.: No Section B - Complete if H&P > 30 days Chief Complaint: Colon cancer screening Relevant Family History (Specify if Yes): No Relevant Social History: Tobacco Use Present Medications: see Short Stay Collaborative assessment Medical History: Significant History (Menorrhagia Anemia Vitamin D deficiency Hypothyroidism) History of Previous Operations: Relevant previous surgery/procedure and date(s) (Hx of hysterectomy Hx of tubal ligation Hx of section) Allergies: Allergies Allergy/AdvReac Type Severity Reaction Status Date / Time No Known Allergies Allergy Verified 01/21/25 11:01 [No Known Allergies*] Review of Systems Sugical H&P ROS: Negative: Constitution, Cardiovascular, Respiratory and Gastrointestinal Exam Surgical H&P Exam: Normal: Heart, Normal: Lungs, Normal: Extremities and Normal: Abdomen Plan Diagnosis/Plan: Unchanged I have reviewed the history and physical and performed a pertinent physical examination on my patient. No changes have occurred unless specified. Time Spent With Patient Time: Total time managing care of this patient today ____ minutes.
--- NOTE | 2025-01-21 13:31 | P.OPN-COLO_ITS ---
Colonoscopy Operative Note Operative Note Date of Service: 01/21/25 Narrative: COLONOSCOPY TILL CECUM WITH SNARE POLYPECTOMY, SUBMUCOSAL INJECTION AND HEMOCLIP PLACEMENT Pre-op diagnosis: Colon cancer screening (2nd colonoscopy). Post-op diagnosis:? Colon polyps, Diverticulosis, hemorrhoids Endoscopist:? María Gann MD Anesthesia:?MAC Consent: Indications for the procedure and potential complications of bleeding, perforation, reaction to medications and missed diagnosis were discussed with the patient and informed consent was obtained. Instrument: Olympus PCF H 190 L variable stiffness pediatric colonoscope Monitoring: Vital signs and clinical assessment, intermittent blood pressure monitoring, continuous EKG monitoring, Pulse oximetry and Carbon Dioxide monitoring were done throughout the procedure. Please see anesthesia flowsheet. Colon withdrawl time was 20 minutes. Procedure: The patient was placed in the left lateral decubitis position and pre-procedure medications were administered. After a digital rectal examination of the ano-rectum, the video colonoscope was inserted into the rectum and advanced through the colon to the cecum. The colonoscope was slowly withdrawn in a retrograde panoramic fashion and the colon mucosa was carefully examined including a retroflexed view of the rectum. Findings and interventions are described below. Procedure Difficulty: without difficulty Findings: Terminal Ileum: Not evaluated Cecum: Normal Ascending Colon: A 2 cms sessile polyp in the proximal AC (distal surface of ICV). Polyp was raised with 3 cc of Eleview and removed with a stiff hot snare. Polypectomy site was closed with 1 hemoclip and marked with Fidelina ink. Polyp was retrieved with a Kenny net. A 2.5 cm sessile polyp in the mid ascending colon at 90 cm. Polyp was raised with 3 cc of Eleview and removed with a stiff hot snare. Polypectomy site was closed with 2 hemoclips and marked with Fidelina ink Transverse Colon: Normal Descending Colon: Normal Sigmoid Colon: Moderate diverticulosis Rectum: Normal Ano-rectum: Moderate internal hemorrhoids Colon preparation: Excellent, after some irrigation. [place]cott Bowel Preparation Scale Right colon; 3 Transverse colon: 3 Left colon; 3 (0 = Unprepared colon segment with mucosa not seen due to solid stool that canno t be cleared. 1 = Portion of mucosa of the colon segment seen, but other areas of the colon segment not well seen due to staining, residual stool and/or opaque liquid. 2 = Minor amount of residual staining, small fragments of stool and/or opaque liquid, but mucosa of colon segment seen well. 3 = Entire mucosa of colon segment seen well with no residual staining, small fragments of stool or opaque liquid) Impression and Post Procedure Diagnosis: Colonoscopy Findings: Two medium sized polyps were removed Moderate diverticulosis seen in the sigmoid colon Moderate hemorrhoids on retroflexed exam. Plan: I will send a letter with biopsy results. Repeat Colonoscopy in 1 year if polyps are adenomatous and to check polypectomy sites in the ascending colon. Above findings were reviewed with the patient and relevant handouts were given and the discharge area. BIOPSIES SHOWED: A. Colon, 90 cm, polypectomy: Fragments of tubular adenoma; negative for high- grade dysplasia or carcinoma. B. Colon, proximal ascending, polypectomy: Tubular adenoma; negative for high- grade dysplasia or carcinoma Letter sent with biopsy results. Patient was placed on recall list for repeat colonoscopy in 1 year.
[2025-01-21 13:34] VITALS: BP 124/67; PULSE 71; RESP 16; TEMP 36.2; O2SAT 97
[2025-01-21 13:49] VITALS: BP 129/78; PULSE 71; RESP 18; TEMP 36.2; O2SAT 97
== END 2025-01-21 14:27 | disposition home or self-care (01) ==
PROVIDERS: PCP Internal Medicine; Visit Provider Internal Medicine Gastroenterology
PROC: 0DJD8ZZ Inspection of Lower Intestinal Tract, Via Natural or Artificial Opening Endoscopic (ICD-10-PCS; CPT 45378; principal; 2025-01-21 12:20)
DX: Z12.11 Encounter for screening for malignant neoplasm of colon (principal); D12.2 Benign neoplasm of ascending colon; D12.3 Benign neoplasm of transverse colon; K57.30 Diverticulosis of large intestine without perforation or abscess without bleeding; K64.8 Other hemorrhoids; D64.9 Anemia, unspecified; I10 Essential (primary) hypertension; E03.9 Hypothyroidism, unspecified; E55.9 Vitamin D deficiency, unspecified; Z79.899 Other long term (current) drug therapy; F17.210 Nicotine dependence, cigarettes, uncomplicated; Z98.890 Other specified postprocedural states
CPT/HCPCS: 45385; 45381; 88305; J2704

== ENCOUNTER → 2025-01-21 10:32 | Outpatient (BNV) | payer MEDICAID, SELFPAY | PROVIDERS: PCP Internal Medicine; Visit Provider Internal Medicine Gastroenterology | DX: Z12.11 Encounter for screening for malignant neoplasm of colon (principal); D12.2 Benign neoplasm of ascending colon; K57.30 Diverticulosis of large intestine without perforation or abscess without bleeding; K64.8 Other hemorrhoids | CPT/HCPCS: 45381; 45385 ==

== ENCOUNTER 2025-05-17 11:13 | Outpatient (REF) | payer MEDICAID, SELFPAY ==
--- OUTSIDE RECORDS SUMMARY | 2025-05-17 10:00 | XMS_ITS | Encounter Summary ---
Author Organization [employer] Address [address] [place] [address] Care Team Providers Care Health Safety And Environment Manager Name Role Phone Roberto Koehler MD Primary Care Provide r Reason for Referral * Consultation (Routine) - Authorized Specialty Diagnoses / Procedures Referred By Contac t Referred To Contact Rheumatology Diagnoses Seropositive rheumatoid arthritis ([facility]/HCC) ([facility]) Roberto Koehler MD [address] [place] [id number] Phone: tel: fax: [facility] [address] [place] [address] Phone: tel: fax: Referral ID Status Reason Start Date Expiration Date Visits Requested Visits Authorized [id number] Authorized Specialty Services Required 05/17/2025 05/17/2026 6 6 Reason for Visit * Reason Comments Follow-up HTN Encounter Details Date Type Department Care Team (Latest Contact Info) Description 05/17/2025 10:00 AM EDT Office Visit [facility] [address] [place] [phone] Roberto Koehler MD [address] [place] [address] Primary hypertension (Primary Dx); Acute conjunctivitis of left eye, unspecified acute conjunctivitis type; Acquired hypothyroidism; Tubular adenoma; Seropositive rheumatoid arthritis (CMS/HCC); Bronchiectasis without complication ([facility]/HCC); Preventative health care; Encounter for immunization Social History Tobacco Use Types Packs/Day Years Used Date Smoking Tobacco: Every Day Cigarettes Passive Smoke Exposure: Current Smokeless Tobacco: Never Alcohol Use Standard Drinks/Week Comments Never 0 (1 standard drink = 0.6 oz pur e alcohol) Depression Answer Date Recorded Patient Health Questionnaire-9 Score 0 01/06/2025 Patient Health Questionnaire-9 Score 0 01/06/2025 Last PHQ-9: Questionnaire Data Not on file 0 01/06/2025 Housing Stability Answer Date Recorded What is your housing situation today? I have laurie natividad 12/30/[address] you li ve. Do you have problems with any of the following? None of the above 12/30/2024 Food Insecurity Answer Date Recorded Within the past 12 months, y ou worried that your food would run out before you got money to buy more: Never True 12/30/2024 Within the past 12 months,th e food you bought just didn't last and you didn't have enough money to get more: Never True Transportation Answer Date Recorded In the past 12 months, has l ack of transportation kept you from medical appts, meetings, work or from getting things needed for daily living? No 12/30/2024 Utilities Answer Date Recorded In the past 12 months, has t he electric, gas, oil or water company threatened to shut off services in your home? No 12/30/2024 Depression Answer Date Recorded Patient Health Questionnaire-2 Score 0 01/06/2025 Internet Access Answer Date Recorded Internet Access Q1 Yes 12/30/2024 Internet Access Q2 Not on file 12/30/2024 Comments Unknown Sex and Gender Information Value Date Recorded Sex Assigned at Female 06/17/2022 10:15 AM EDT Legal Sex Female 10:15 AM EDT Gender Identity Female 06/17/2022 10:15 AM EDT Sexual Orientation Straight 06/17/2022 10 :15 AM EDT documented as of this encounter Last Filed Vital Signs Vital Sign Reading Time Taken Comments Blood Pressure 144/80 05/17/2025 10:12 AM EDT Pulse 87 05/17/2025 10:12 AM EDT Temperature 34.8 C (94.6 F) 05/17/2025 10:12 AM EDT Respiratory Rate 20 05/17/2025 10:12 AM EDT Oxygen Saturation 96% 05/17/2025 10:12 AM EDT Inhaled Oxygen Concentration - - Weight 80.1 kg (176 lb 9.6 oz) 05/17/2025 10:12 AM EDT Height 157.5 cm (5' 2 ) 05/17/2025 10:12 AM EDT Body Mass Index 32.3 05/17/2025 10:12 AM EDT documented in this encounter Progress Notes * Roberto Oquendo MD - 05/17/2025 10:00 AM EDT SUBJECTIVE Nguyen Frausto is a 65 y.o. female who presents for Follow-up (HTN). Nguyen Frausto, 65 years Eye discomfort - Burning sensation in the eye for approximately 2 weeks prior to the visit - No pain or blurry vision reported - Last prescription for eye medication received about 1 month prior to the visit Rheumatoid arthritis - History of rheumatoid arthritis in the hands - Last specialist visit was years ago - Did not take prescribed medication due to concerns about liver and kidney side effects - Stopped seeing the specialist after declining medication Conjunctivitis The current episode started more than 1 week ago. The onset was gradual. The problem has been gradually worsening. The problem is mild. Nothing relieves the symptoms. Nothing aggravates the symptoms.Associated symptoms include eye itching and eye redness. Pertinent negatives include no fever, no double vision, no photophobia, no ear pain, no headaches, no sore throat and no eye pain. The left eye is affected. Review of Systems Constitutional: Negative for fever. HENT: Negative for ear pain and sore throat. Eyes: Positive for redness and itching. Negative for double vision, photophobia and pain. Neurological: Negative for headaches. Allergies[1] OBJECTIVE Vitals: 05/17/25 1012 BP: (!) 144/80 BP Location: Left arm Patient Position: Sitting BP Cuff Size: Adult Pulse: 87 Resp: 20 Temp: 94.6 ??F (34.8 ??C) TempSrc: Oral SpO2: 96% Weight: 176 lb 9.6 oz (80.1 kg) Height: 5' 2 (1.575 m) Physical Exam Eyes: General: Lids are normal. Lids are everted, no foreign bodies appreciated. Vision grossly intact. Left eye: No foreign body. Extraocular Movements: Extraocular movements intact. Conjunctiva/sclera: Left eye: Left conjunctiva is injected. Pupils: Pupils are equal, round, and reactive to light. Left eye: No corneal abrasion or fluorescein uptake. Assessment/Plan Problem List Items Addressed This Visit Primary hypertension - Primary Here for a follow up BP slightly elevated today On hydrochlorothiazide 25 mg po daily and Lisinopril 20 mg po daily BMP Lab Results Component Value Date NA 144 10/13/2024 NA 142 12/19/2023 K 3.3 10/13/2024 K 3.4 12/19/2023 CL 108 10/13/2024 CL 107 12/19/2023 BUN 17 (H) 10/13/2024 BUN 16 12/19/2023 CREATININE 0.69 10/13/2024 CREATININE 0.75 12/19/2023 Plan: Continue current regimen for now repeat BMP Follow up 4 months Relevant Orders Basic Metabolic Panel Acute conjunctivitis of left eye Pt here with c/o itchy, red and teary left eye for at least 2 weeks. No photofobia, no clurry vision, no ocular pain, no foreign body sensation, no purulent discharge. Pt's symptomatology suggestive of an allergic conjunctivitis ( pt reports using a specific makeup for her eyes) but given her history of RA other considerations need to be taken to rule out uveitis, episcleritis etc Plan: Ketotifen eye drops BID, will also add a nightly Erythromycin ointment in the event of bacterial superinfection. Case discussed with our Log Deck Tender who will see patient soon to do a slit lamp test. I asked patient to come back and see me in 1 week to ensure resolution Relevant Medications erythromycin (Romycin) 5 MG/GM ophthalmic ointment Ketotifen Fumarate 0.035 % solution Hypothyroidism Most recent TSH from Lab Results Component Value Date TSH 0.24 (L) 01/07/2025 suppressed Back in December We lowered Levothyroxine from 100 mcg po daily. To 88 mcg US thyroid === 04/01/24 === - Impression - Left midpole TR 5 nodule,followup ultrasound every year for 5 years if 0.5 to 0.9 cm in maximum dimension. ACR TI-RADS RECOMMENDATION REFERENCE: Ultrasound-guided fine-needle aspiration, followup ultrasound, no further follow up. * TR1 (0 point) and TR2 (2 points): No FNA or follow up. * TR3 (3 points): FNA if more than or equal to 2.5 cm in maximum dimension, followup ultrasound in 1, 3 and 5 years if 1.5 to 2.4 cm in maximum dimension. * TR4 (4-6 points): FNA if more than or equal to 1.5 cm in maximum dimension, followup ultrasound in 1, 2, 3 and 5 years if 1 to 1.4 cm in maximum dimension. * TR5 (more than or equal to 7 points): FNA if more than or equal to 1 cm in maximum dimension, followup ultrasound every year for 5 years if 0.5 to 0.9 cm in maximum dimension. * TR3, TR4 or TR5 nodules that are below the size threshold for followup receive no follow up. Electronically signed by: Amrita Pineda MD 05/18/2024 02:29 PM EDT Repeat TSH Follow up 4 months Relevant Orders TSH with Reflex to Free T4 Tubular adenoma Colonoscopy: 12/22/12 normal (one hyperplastic polyp), repeat in 10 years.Repeat January showed aTubular adenoma 1 year follow up was recommended Seropositive rheumatoid arthritis (CMS/HCC) Evaluated by [facility] in the past Last note from 12/15/2020 Sylvie Bailey MD She diagnosed her with Seropositive rheumatoid arthritis (RF++ CCP++). She Discussed diagnosis and management with patient and recommended methotrexate 4 tabs weekly and folic acid daily. She was supposed to follow-up in the office in 8 weeks but she never did, she tells me she was afraid from the side effects of the medications. Today she tells me she would be agreeable to go back and see her Relevant Orders Referral to Rheumatology Bronchiectasis without complication (CMS/HCC) Seen by Pulmonary 03/2024 Preventative health care Mammogram: 01/05/2024 Normal Pap Smear: s/p NITZA and BSOO 05/2014 Dr Lea Colonoscopy: 12/22/12 normal (one hyperplastic polyp), repeat in 10 years.Repeat January showed aTubular adenoma 1 year follow up was recommended Other Visit Diagnoses Encounter for immunization Relevant Orders FLU VACCINE TRIVALENT [id number] (Fluarix) 19 yrs + (Completed) This note was drafted using Ambient (AI) technology. The patient/patient's guardian has been informed and has consented to the use of this technology: Yes Future Appointments Date Time Provider Department Center 05/26/2025 1:00 PM Roberto Oquendo MD [facility] [1] No Known Allergies documented in this encounter Miscellaneous Notes * Assessment & Plan Note - Roberto Oquendo MD - 05/17/2025 11:53 AM EDT Associated Problem(s): Acute conjunctivitis of left eye Pt here with c/o itchy, red and teary left eye for at least 2 weeks. No photofobia, no clurry vision, no ocular pain, no foreign body sensation, no purulent discharge. Pt's symptomatology suggestive of an allergic conjunctivitis ( pt reports using a specific makeup for her eyes) but given her history of RA other considerations need to be taken to rule out uveitis, episcleritis etc Plan: Ketotifen eye drops BID, will also add a nightly Erythromycin ointment in the event of bacterial superinfection. Case discussed with our Log Deck Tender who will see patient soon to do a slit lamp test. I asked patient to come back and see me in 1 week to ensure resolution * Assessment & Plan Note - Roberto Oquendo MD - 05/17/2025 10:23 AM EDT Associated Problem(s): Seropositive rheumatoid arthritis (CMS/HCC) Evaluated by [facility] in the past Last note from 12/15/2020 Sylvie Bailey MD She diagnosed her with Seropositive rheumatoid arthritis (RF++ CCP++). She Discussed diagnosis and management with patient and recommended methotrexate 4 tabs weekly and folic acid daily. She was supposed to follow-up in the office in 8 weeks but she never did, she tells me she was afraid from the side effects of the medications. Today she tells me she would be agreeable to go back and see her * Assessment & Plan Note - Roberto Oquendo MD - 05/17/2025 10:22 AM EDT Associated Problem(s): Bronchiectasis without complication (CMS/HCC) Seen by Pulmonary 03/2024 * Assessment & Plan Note - Roberto Oquendo MD - 05/17/2025 10:19 AM EDT Associated Problem(s): Hypothyroidism Most recent TSH from Lab Results Component Value Date TSH 0.24 (L) 01/07/2025 suppressed Back in December We lowered Levothyroxine from 100 mcg po daily. To 88 mcg US thyroid === 04/01/24 === - Impression - Left midpole TR 5 nodule,followup ultrasound every year for 5 years if 0.5 to 0.9 cm in maximum dimension. ACR TI-RADS RECOMMENDATION REFERENCE: Ultrasound-guided fine-needle aspiration, followup ultrasound, no further follow up. * TR1 (0 point) and TR2 (2 points): No FNA or follow up. * TR3 (3 points): FNA if more than or equal to 2.5 cm in maximum dimension, followup ultrasound in 1, 3 and 5 years if 1.5 to 2.4 cm in maximum dimension. * TR4 (4-6 points): FNA if more than or equal to 1.5 cm in maximum dimension, followup ultrasound in 1, 2, 3 and 5 years if 1 to 1.4 cm in maximum dimension. * TR5 (more than or equal to 7 points): FNA if more than or equal to 1 cm in maximum dimension, followup ultrasound every year for 5 years if 0.5 to 0.9 cm in maximum dimension. * TR3, TR4 or TR5 nodules that are below the size threshold for followup receive no follow up. Electronically signed by: Amrita Pineda MD 05/18/2024 02:29 PM EDT Repeat TSH Follow up 4 months * Assessment & Plan Note - Roberto Oquendo MD - 05/17/2025 10:18 AM EDT Associated Problem(s): Primary hypertension Here for a follow up BP slightly elevated today On hydrochlorothiazide 25 mg po daily and Lisinopril 20 mg po daily BMP Lab Results Component Value Date NA 144 10/13/2024 NA 142 12/19/2023 K 3.3 10/13/2024 K 3.4 12/19/2023 CL 108 10/13/2024 CL 107 12/19/2023 BUN 17 (H) 10/13/2024 BUN 16 12/19/2023 CREATININE 0.69 10/13/2024 CREATININE 0.75 12/19/2023 Plan: Continue current regimen for now repeat BMP Follow up 4 months * Assessment & Plan Note - Roberto Oquendo MD - 05/17/2025 10:18 AM EDT Associated Problem(s): Tubular adenoma Colonoscopy: 12/22/12 normal (one hyperplastic polyp), repeat in 10 years.Repeat January showed aTubular adenoma 1 year follow up was recommended * Assessment & Plan Note - Roberto Oquendo MD - 05/17/2025 10:17 AM EDT Associated Problem(s): Preventative health care Mammogram: 01/05/2024 Normal Pap Smear: s/p NITZA and BSOO 05/2014 Dr Lea Colonoscopy: 12/22/12 normal (one hyperplastic polyp), repeat in 10 years.Repeat January showed aTubular adenoma 1 year follow up was recommended documented in this encounter Plan of Treatment Upcoming Encounters Date Type Department Care Team (Late st Contact Info) Description 05/26/2025 1:00 PM EDT Telemedicine [facility] [address] [place] [address] Roberto Koehler MD [address] [place] [address] Scheduled Orders Name Type Priority Associated Diagnoses Orde r Schedule Basic Metabolic Panel Lab Routine Primary hypertension Ordered: 05/17/2025 TSH with Reflex to Free T4 Lab Routine Acquired hypothyroidism Ordered: 05/17/2025 Scheduled Referrals Name Type Priority Associated Diagnoses Order Schedule Referral to Rheumatology Outpatient Referral Routine Seropositive rheumatoid arthritis (CMS/HCC) Expected: 05/17/2025 (Approximate), Expires: 05/17/2026 documented as of this encounter Visit Diagnoses Diagnosis Primary hypertension- Primary Unspecified essential hypertension Acute conjunctivitis of left eye, unspecified acute conjunctivitis type Acquired hypothyroidism Unspecified hypothyroidism Tubular adenoma Benign neoplasm of unspecified site Seropositive rheumatoid arthritis (CMS/HCC) (HCC) Bronchiectasis without complication (CMS/HCC) (HCC) Preventative health care Routine general medical examination at a health care facility Encounter for immunization documented in this encounter Additional Health Concerns Assessment Noted Time PHQ-9 Depression Total Score: 0 01/07/20 25 11:52 AM EDT documented as of this encounter Care Teams Health Safety And Environment Manager Relationship Specialty Start Date End Date Roberto Koehler MD [address] [place] [phone] PCP - General Internal Medicine 06/29/14 documented as of this encounter
--- OUTSIDE RECORDS SUMMARY | 2025-05-17 12:38 | XMS_ITS | Encounter Summary ---
Author Organization [employer] Address [address] [facility] 7t [place] [address] Care Team Providers Care Director Property Name Role Phone Roberto Koehler MD Primary Care Provide r Reason for Visit * Reason Onset Date Comments chart prep 05/16/2025 Encounter Details Date Type Department Care Team ([facility] st Contact Info) Description 05/16/2025 Telephone [facility] [address] [place], [place] [phone] Roberto Koehler MD [address] [place], [place] [phone] chart prep Social History Tobacco Use Types Packs/Day Years [...] housing situation today? I have laurie henson 12/30/[address] you li [...] encounter Miscellaneous Notes * Telephone Encounter - Terrie Sams [place] - 05/16/2025 9:06 AM EDT Chart Prep Labs: done Images: done Screenings: Not Applicable Vaccines due: Covid Due, Hep A Due, Hep B Due, Flu Due, RSV in Pharmacy Due, and Shingles in pharmacy Due Referrals: Completed Overdue care gaps: Sbirt documented in this encounter Plan of Treatment Upcoming Encounters Date Type Department Care Team (Late st Contact Info) Description 05/26/2025 1:00 PM EDT Telemedicine [facility] [address] [place] [address] Roberto Koehler MD [address] [place] [address] documented as of this encounter Visit Diagnoses Not on filedocumented in this encounter Additional Health Concerns Assessment Noted Time PHQ-9 Depression Total Score: 0 01/07/20 25 11:52 AM EDT documented as of this encounter Care Teams Director Property Relationship Specialty Start Date End Date Roberto Koehler MD [address] [place] [address] PCP - General Internal Medicine 06/29/14 documented as of this encounter
--- OUTSIDE RECORDS SUMMARY | 2025-05-17 12:38 | XMS_ITS | Encounter Summary ---
Author Organization [employer] Address [address] [facility] 7t [place] [address] Care Team Providers Care Tire Building Supervisor Name Role Phone Roberto Koehler MD Primary Care Provide r Encounter Details Date Type Department Care Team (Latest Contact Info) Description 05/17/2025 Travel Social History Tobacco Use Types Packs/Day [...] Info) Description 05/26/2025 1:00 PM EDT Telemedicine [facility] [address] [place] [address] Roberto Koehler MD [address] [place] [address] documented as of this encounter Visit Diagnoses Not on filedocumented in this encounter Additional Health Concerns Assessment Noted Time PHQ-9 Depression Total Score: 0 01/07/20 25 11:52 AM EDT documented as of this encounter Care Teams Tire Building Supervisor Relationship Specialty Start Date End Date Roberto Koehler MD [address] [place] [address] PCP - General Internal Medicine 06/29/14 documented as of this encounter
--- OUTSIDE RECORDS SUMMARY | 2025-05-17 12:38 | XMS_ITS | Clinical Summary ---
Author Organization [employer] Address [address] [facility] 7t [place] [address] Care Team Providers Care Paper Bags Sewing Machine Operator Name Role Phone Roberto Koehler [...] A DAY 350 g 2 4 Active fluticasone (Flonase) 50 MCG/ACT nasal sprayIndications:S easonal allergies Administer 1-2 sprays into each nostril Once per day. Shake gently. Before first use, prime pump. After use, clean tip and replace cap. 16 g 2 5 Active cetirizine (ZyrTEC) 10 MG tabletIndications: Rash,Seasonal allergies Take 1 tablet (10 mg) by mouth Once per day. 30 tablet 2 5 Active levothyroxine (Synthroid) 88 MCG tabletIndications: Acquired hypothyroidism Take 1 tablet (88 mcg) by mouth before breakfast. 30 tablet 11 5 026 Active hydroCHLOROthiazid e (HYDRODiuril) 25 MG tabletIndications: Primary hypertension TAKE ONE TABLET BY MOUTH EVERY DAY 90 tablet 1 5 Active lisinopril 20 MG tabletIndications: Primary hypertension TAKE ONE TABLET BY MOUTH EVERY DAY 30 tablet 6 5 Active erythromycin (Romycin) 5 MG/GM ophthalmic ointmentIndication s:Acute conjunctivitis of left eye, unspecified acute conjunctivitis type Apply to left eye at bedtime for 7 days. Apply Amount per Dose: 0.5 inch (~1 cm) per dose. 1 g 5 025 Active Ketotifen Fumarate 0.035 % solutionIndication s:Acute conjunctivitis of left eye, unspecified acute conjunctivitis type Administer 1 drop into affected eye(s) 2 times daily. Left eye 5 mL 5 Active Active Problems Problem Noted Date Diagnosed Date Tubular adenoma 05/17/2025 Assessment & Plan (05/17/2025 10:18 AM EDT): Colonoscopy: 12/22/12 normal (one hyperplastic polyp), repeat in 10 years.Repeat January showed a Tubular adenoma 1 year follow up was recommended Seropositive rheumatoid arthritis ([facility]) 04/20 Assessment & Plan (05/17/2025 10:47 AM EDT): Evaluated by [facility] [...] agreeable to go back and see her Bronchiectasis without complication ([facility]) Assessment & Plan (05/17/2025 10:22 AM EDT): Seen by Pulmonary 03/2024 Acute conjunctivitis of left eye 05/17/2025 Assessment & Plan (05/17/2025 11:53 AM EDT): Pt here with c/o itchy, red and [...] of bacterial superinfection. Case discussed with our Administration Manager who will see patient soon to do a slit lamp test. 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 Stable small bilateral pulmonary nodules. No new nodule. More conspicuous patchy air trapping suggesting underlying small airway disease. Stable hepatic hemangioma and left adrenal adenoma. Dr. Lauren recommended [address] Acute nonintractable headache 06/17/2024 Assessment & Plan [...] super infection. Pt denies known infestation. Had international organizer at her house Advise avoid itching if [...] hyperplasia. Pt was seen by Dr Springer Ear Nose Throat Surgeon in 10/2017 and he recommended f/u in [...] hyperplasia. Pt was seen by Dr Springer Ear Nose Throat Surgeon in 10/2017 and he recommended f/u in [...] hyperplasia. Pt was seen by Dr Springer Ear Nose Throat Surgeon in 10/2017 and he recommended f/u in [...] Hx liver lesion: on a CT of [id number] there was an incidental finding of: Low-density [...] subcapsular splenic hemangioma has also remained stable. [facility] care 12/18/2023 Assessment & Plan (05/17/2025 10:17 AM EDT): Mammogram: 01/05/2024 Normal Pap Smear: s/p NITZA and BSOO 05/2014 Dr Lea Colonoscopy: 12/22/12 normal (one hyperplastic polyp), repeat in 10 years.Repeat January showed a Tubular adenoma 1 year follow up was recommended Assessment & Plan (01/06/2025 10:48 AM EDT): Mammogram: 01/05/2024 Normal Pap Smear: s/p NITZA and BSOO 05/2014 Dr Lea Colonoscopy: 12/22/12 normal (one hyperplastic polyp), repeat in 10 years. Pt was seen by Amanda Jennings 01/2024 who is scheduling a follow up Colonoscopy January Assessment & Plan (04/01/2024 9:14 AM EDT): [...] 5 mm Likely benign, Will refer to [facility] Derm clinic given that pt reports is increasing in size Primary hypertension 08/01/2023 Assessment & Plan (05/17/2025 11:54 AM EDT): Here for a follow up BP slightly [...] now repeat BMP Follow up 4 months Assessment & Plan (01/06/2025 10:34 AM EDT): Here for a follow up BP controlled On hydrochlorothiazide 25 mg po daily and Lisinopril 20 mg po daily [facility] Lab Results Component Value Date NA 144 10/13/2024 NA 142 12/19/2023 K 3.3 10/13/2024 K 3.4 12/19/2023 CL 108 10/13/2024 CL 107 12/19/2023 BUN 17 (H) 10/13/2024 BUN 16 12/19/2023 CREATININE 0.69 10/13/2024 CREATININE 0.75 12/19/2023 Plan: Continue current regimen Follow up 4 months Assessment & Plan (09/16/2024 9:37 AM EST): Here for a follow up BP elevated On hydrochlorothiazide 25 mg po daily and Lisinopril 10 mg po daily [facility] 12/19/2023 Normal Plan: Increase Lisinopril to 20 mg po daily Follow up 4 months Assessment & Plan (06/17/2024 11:08 AM EDT): Here for a follow up BP elevated On hydrochlorothiazide 25 mg po daily [facility] 12/19/2023 Normal Plan: Add Lisinopril 10 mg po daily Follow up 4 months Assessment & Plan (04/01/2024 10:06 AM EDT): Here for a follow up BP uncontrolled On hydrochlorothiazide 25 mg po daily [facility] 12/19/2023 Normal Plan: Continue with current regimen Follow up 4 months Assessment & Plan (01/27/2024 3:24 PM EDT): Here for a follow up BP uncontrolled On hydrochlorothiazide 12.5 mg po daily [facility] 12/19/2023 Normal Plan: Increase hydrochlorothiazide to 25 [...] deficiency 03/01/2013 Hypothyroidism 03/12/2012 Assessment & Plan (05/17/2025 10:19 AM EDT): Most recent TSH from Lab Results Component [...] EDT Repeat TSH Follow up 4 months Assessment & Plan (01/06/2025 10:36 AM EDT): Most recent TSH from Lab Results Component Value Date TSH 0.49 12/19/2023 was within normal limits Continue Levothyroxine 100 mcg po daily. US thyroid === 04/01/24 === - Impression [...] Amrita Pineda MD 05/18/2024 02:29 PM EDT RP Repeat TSH Follow up 4 months Assessment & Plan (04/01/2024 10:17 AM EDT): [...] Encounters Date Type Department Care Team Description 05/17/2025 10:00 AM EDT Office Visit [facility] [address] [place] [phone] Roberto Koehler MD Primary hypertension (Primary Dx); Acute conjunctivitis of left eye, unspecified acute conjunctivitis type; Acquired hypothyroidism; Tubular adenoma; Seropositive rheumatoid arthritis (CMS/HCC); Bronchiectasis without complication ([facility]); Preventative health care; Encounter for immunization 05/17/2025 Travel 05/16/2025 Telephone [facility] [address] [place] [address] Roberto Koehler MD chart prep 05/10/2025 Travel 03/08/2025 Refill [facility] [address] [place] [address] Roberto Koehler MD Primary hypertension 03/03/2025 Travel from Last 3 Months Immunizations Immunization Administration Dates Next Due Influenza injectable quadriv alent IIV4 with preservative 06/21/2015 Influenza injectable quadriv alent preservative free 06/25/2022,05/13/2019,11/26/2016,2014 Influenza, IIV3, injectable 05/10/2011, 0 Influenza, Split (incl. alisha fied surface antigen) 07/26/2013 Influenza, seasonal, injecta ble, preservative free 05/17/2025,06/17/2024 Pneumococcal Conjugate PCV 20 04/01/2024 TD (adult), 2 Lf tetanus tox oid, preservative free, adsorbed 04/01/2024,02/27/1995 Tdap 05/10/2011 Zoster, Recombinant 03/07/2025 Family History Medical History Relation Name Comments [...] Mass Index 32.3 05/17/2025 10:12 AM EDT Plan of Treatment Upcoming Encounters Date Type Department Care Team (Late st Contact Info) Description 05/26/2025 1:00 PM EDT Telemedicine [facility]INE [address] [place], [place] [phone] Roberto Koehler MD [address] [place], [place] [phone] Health Maintenance Due Date Last Done Comments CT Colonography 1960 FIT DNA/Cologuard 1960 FIT 1960 FOBT 1960 Sigmoidoscopy 1960 Hepatitis A Vaccines (1 of 2 - Risk 2-dose series) 1981 Hepatitis B Vaccines (1 of 3 - Risk 3-dose series) 2022 RSV Patients and Patients Aged 60 years or older (1 - Risk 60-74 years 1-dose series) 2022 COVID-19 Vaccine ( season) 2025 06/25/2022, 01/10/2021, 12/13/2020 SDOH Screening 12/30/2025 12/30/2024 Depression Screening 01/06/2026 01/06/2025, 01/07/20 25 Disability Screening 01/06/2026 01/06/2025 Mammogram 01/17/2026 01/17/2025, 12/17, 12/30/2022, Additional history exists Alcohol/Substance Use Screening 05/17/2026 05/17/2025 Tobacco Screening 05/17/2026 05/17/2025 Colonoscopy 01/22/2028 12/22/2012 Colorectal Cancer Screening 01/22/2028 Lipid Panel 01/07/2030 01/07/2025, 12/19/2023 DTaP/Tdap/Td Vaccines (3 - Td or Tdap) 04/01/2034 04/01/2024, 05/10/2011, 02/27/1995 HIV Screening Completed 10/21/2019 Hepatitis C Screening Completed 10/21/2019 Pneumococcal Vaccine: 50+ Years Completed 04/01/2024 Zoster Vaccines Completed 05/10/2025, 03/07/2025 Influenza Vaccine Completed 05/17/2025, , 06/25/2022, Additional history exists HIB Vaccines Aged Out No longer eligi ble based on patient's age to complete this topic HPV Vaccines Aged Out No longer eligi ble based on patient's age to complete this topic IPV Vaccines Aged Out No longer eligi ble based on patient's age to complete this topic Meningococcal B Vaccine Aged Out No l onger eligible based on patient's age to complete [...] Procedure Name Priority Date/Time Associated Diagnosis Comments BI MAMMOGRAM SCREENING TOMOSYNTHESIS BILATERAL Routine 01/17/2025 9:50 AM EDT Breast cancer screening by mammogram LIPID PANEL, STANDARD Routine 01/07/2025 8:50 AM EDT Primary hypertension Acquired hypothyroidism ZZZ HISTORICAL HEPATITIS C ANTIBODY RFLX Routine 10/21/2019 8:30 AM EST ZZZ HISTORICAL HIV AB/AG Routine 10/21/2019 8:30 AM EST HM COLONOSCOPY Routine 12/22/2012 from Last 3 Months or Most Recently Relevant to Health Maintenance Results * BI Mammogram Screening Tomosynthesis Bilateral (01/17/2025 9:50 AM EDT) Anatomical Region Laterality Modality Breast Bilateral Mammography 01/17/2025 9:50 AM EDT Narrative 01/22/2025 5:38 PM EDT [facility] [address] [place], [place] [address] Mammography Report Signed Patient: Nguyen Frausto MR#: [id number] : 1960 Acct:[id number] Age/Sex: 65 / F ADM Date: 01/17/25 Loc: [facility] Attending Dr: Roberto Mckinney MD Ordering Physician: Roberto Mckinney MD Resu lts: 1Negative Date of Service: 01/17/25 Follow Up: 1 Year From Orig inal Mammogram Procedure(s): MM tomosynthesis screening BI Accession Number(s): [id number] cc: Roberto Mckinney MD EXAMINATION: MM SCREENING DIGITAL BREAST TOMOSYNTHESIS, BILATERAL CLINICAL INFORMATION: Screening. Asymptomatic. COMPARISON: Mammography: Comparison is made with available priors TECHNIQUE: Digital breast mammography with tomosynthesis is performed in both the craniocaudal and mediolateral oblique views along with computer-aided detection (CAD). FINDINGS: There are scattered areas of fibroglandular [...] target due date for their next mammogram. Electronically signed by: Martina Spaulding DO 01/22/2025 05:36 PM EDT Dictated By: Martina Spaulding DO Signed By: <Electronically signed by Martina Spaulding DO in OV> 01/22/25 1736 DD/ 0950 TD/TT: 01/17/25 1000 Psychology Professor: Procedure Note Donotuseinterpreter, Image - 01/22/2025 [facility] [address] [place], [place] [address] Mammography Report Signed Patient: Nguyen Frausto AMR#: [id number] : 1960cct:[id number] Age/Sex: 65 / FADM Date: 01/17/25 Loc: HO.MAMMO Attending Dr: Roberto Mckinney MD Ordering Physician: Roberto Mckinney MDResu lts: 1Negative Date of Service: 01/17/25Follow Up: 1 Year From Orig inal Mammogram Procedure(s): MM tomosynthesis screening BI Accession Number(s): [id number] cc: Roberto Mckinney MD EXAMINATION: MM SCREENING DIGITAL BREAST TOMOSYNTHESIS, BILATERAL CLINICAL INFORMATION: Screening. Asymptomatic. COMPARISON: Mammography: Comparison is made with available priors TECHNIQUE: Digital breast mammography with tomosynthesis is performed in both the craniocaudal and mediolateral oblique views along with computer-aided detection (CAD). FINDINGS: There are scattered areas of fibroglandular [...] target due date for their next mammogram. Electronically signed by: Martina Spaulding DO 01/22/2025 05:36 PM EDT Dictated By: Martina Spaulding DO Signed By: <Electronically signed by Martina Spaulding DO in OV> 01/22/25 1736 DD/ 0950 TD/TT: 01/17/25 1000 Psychology Professor: us Roberto Oquendo MD IMG BI PROCEDURES Wes kacie Result - Final * Lipid Panel, Standard (01/07/2025 8:50 AM EDT) Triglycerides 84 <150 mg/dL [facility] Comment:Desirable Triglyceri de: less than 150 mg/dLBorderline High Triglyceride 150-199 mg/dLHigh Triglyceride: 200-499 mg/dLVery High Triglyceride: greater than or equal to 5OO mg/dL Cholesterol 155 <200 mg/dL [facility] Comment:Desirable Cholestero l: less than 200 mg/dLBorderline High Cholesterol: 200-239 mg/dLHigh Cholesterol: greater than 239 mg/dL LDL Cholesterol Calculated 96 <100 mg/dL [facility] Comment:Desirable LDL: less than 100 mg/dLNear Optimal/Above Optimal LDL: 110- 129 mg/dLBorderline High LDL: 130-159 mg/dLHigh LDL: 160-189 mg/dLVery High LDL: greater than or equal to 190 mg/dL HDL Cholesterol 43 >40 mg/dL [facility] Comment:Desirable HDL: great er than 40 mg/dL Note: This HDL assay may give artificially low results in patients with liver disease. Blood Venous blood specimen / Unknown 01/07/2025 8:50 AM EDT 01/07/2025 11:03 AM EDT Roberto Oquendo MD LAB BLOOD ORDERABLES Final Result [facility] [address] [place] [address] [phone] * HEPATITIS C ANTIBODY RFLX (10/21/2019 8:30 AM EST) [facility] HEPATITIS C ANTIBODY NONREACTIVE [facility] Comment: Antibodies to HCV not detected; does not exclude early acute HCV infection. 10/21/2019 8:30 AM EST Historical Provider HISTORICAL/NON ORDERABLE LABS Final Result [facility] [address] * HIV AB/AG (10/21/2019 8:30 AM EST) Pathologist [facility] HIV AG/AB NONREACTIVE NR [facility] Comment: HIV-1 p24 Ag and/or HIV-1/HIV-2 Ab not detected. A test result that is nonreactive does not exclude the possibility of exposure to or infection with HIV-1 and/or HIV-2. Nonreactive results in this assay for individuals with prior exposure to HIV-1 and/or HIV-2 may be due to antigen and antibody levels that are below the limit of detection of this assay. The [employer] Administrator HIV Ag/Ab Combo assay result and supplemental assay results should be interpreted in conjunction with the patient's clinical presentation, history and other laboratory results. If the results are inconsistent with clinical evidence, additional testing is suggested to confirm the result. 10/21/2019 8:30 AM EST us Historical Provider HISTORICAL/NON ORDERABLE LABS Final Result [facility] [address] [place] [address] * Colonoscopy (12/22/2012) Colonoscopy Normal Normal 12/22/2012 Narrative Carmen Ng - 12/22/2012 3:04 PM EDT Recommended 10 year follow up us Historical Provider HEALTH MAINTENANCE Final Result from Last 3 Months or Most Recently Relevant to Health Maintenance Insurance [facility] C3 Care Teams Paper Bags Sewing Machine Operator Relationship Specialty Start Date End Date Roberto Koehler MD [address] [place] [address] PCP - General Internal Medicine 06/29/14
--- OUTSIDE RECORDS SUMMARY | 2025-05-17 12:38 | XMS_ITS | Clinical Summary ---
Author Organization [facility] Address [address] [place] [phone] Phone Care Team Providers Care Baker Bread Name Role Phone Leora Padilla DO Primary Care Provider Allergies No known active allergies Medications levothyroxine (SYNTHROID, LEVOTHROID) 100 MCG tablet Take 100 mcg by mouth every morning. Active Active Problems Problem Noted Date Diagnosed Date Chronic thoracic back pain 10/25/2017 Social History Tobacco Use Types Packs/Day Years Used Date Smoking Tobacco: Former Cigarettes Q uit: 10/23/2017 Smokeless Tobacco: Never Alcohol Use Standard Drinks/Week Comments No 0 (1 standard drink = 0.6 oz pur e alcohol) Comments Unknown Sex and Gender Information Value Date Recorded Sex Assigned at Female 10/25/2017 8:01 PM EST Legal Sex Female 9:46 PM EDT Gender Identity Female 10/25/2017 8:01 PM EST Sexual Orientation Straight 10/25/2017 8: 01 PM EST Last Filed Vital Signs Vital Sign Reading Time Taken Comments Blood Pressure 172/89 10/25/2017 7:55 PM EST Pulse 66 10/25/2017 7:55 PM EST Temperature 37 C (98.6 F) 10/25/2017 7:55 PM EST Respiratory Rate 16 10/25/2017 7:55 PM EST Oxygen Saturation 97% 10/25/2017 7:55 PM EST Inhaled Oxygen Concentration - - Weight 85.3 kg (188 lb) 10/25/2017 7:55 PM EST Height 154.9 cm (5' 1 ) 10/25/2017 7:55 PM EST Body Mass Index 35.52 10/25/2017 7:55 PM EST Plan of Treatment Not on file Medical Devices Not on file Insurance [employer] [place] [place] [place] [employer] Care Teams Baker Bread Relationship Specialty Start Date End Date Leora Padilla DO [address] [place] [phone] PCP - General Family Medicine 10/25/17 Additional Source Comments The information contained in this document represents components of the legal health record. It is not the complete legal health record.[facility]
--- OUTSIDE RECORDS SUMMARY | 2025-05-17 12:38 | XMS_ITS | Encounter Summary ---
Author Organization [employer] Address [address] [facility] 7t [place] [address] Care Team Providers Care Rewinder Name Role Phone Roberto Koehler MD Primary Care Provide r Reason for Visit * Reason Comments Med Refill Encounter Details Date Type Department Care Team ([facility] st Contact Info) Description 08/23/2024 Refill [facility] [address] [place], [place] [phone] Roberto Koehler MD [address] [place], [place] [phone] Primary hypertension Social History Tobacco Use Types [...] Info) Description 05/26/2025 1:00 PM EDT Telemedicine [facility] [address] [place] [address] Roberto Koehler MD [address] [place] [address] documented as of this encounter Visit Diagnoses Diagnosis Primary hypertension Unspecified essential hypertension documented in this encounter Additional Health Concerns Assessment Noted Time PHQ-9 Depression Total Score: 1 12/18/19 24 10:46 AM EDT documented as of this encounter Care Teams Rewinder Relationship Specialty Start Date End Date Roberto Koehler MD [address] [place] [address] PCP - General Internal Medicine 06/29/14 documented as of this encounter
--- OUTSIDE RECORDS SUMMARY | 2025-05-17 12:39 | XMS_ITS | Encounter Summary ---
Author Organization [employer] Address [address] [facility] [address] [place] [address] Care Team Providers Care Worship Director Name Role Phone Roberto Koehler MD Primary Care Provide r Reason for Visit * Reason Comments Med Refill Encounter Details Date Type Department Care Team ([facility] st Contact Info) Description 11/01/2024 Refill [facility] [address] [place], [place] [phone] Roberto Koehler MD [address] [place], [place] [phone] Primary hypertension Social History Tobacco Use Types [...] Info) Description 05/26/2025 1:00 PM EDT Telemedicine [facility] [address] [place] [address] Roberto Koehler MD [address] [place] [address] documented as of this encounter Visit Diagnoses Diagnosis Primary hypertension Unspecified essential hypertension documented in this encounter Additional Health Concerns Assessment Noted Time PHQ-9 Depression Total Score: 1 12/18/19 24 10:46 AM EDT documented as of this encounter Care Teams Worship Director Relationship Specialty Start Date End Date Roberto Koehler MD [address] [place] [address] PCP - General Internal Medicine 06/29/14 documented as of this encounter
--- OUTSIDE RECORDS SUMMARY | 2025-05-17 12:39 | XMS_ITS | Encounter Summary ---
Author Organization [employer] Address [address] [facility] 7[address] [place] [address] Care Team Providers Care Research Recruiter Name Role Phone Roberto Koehler MD Primary Care Provide r Encounter Details Date Type Department Care Team ([facility] Contact Info) Description 12/25/2022 Abstract [facility] [address] [place] [address] [phone] oRberto Koehler MD [address] [place] [address] [phone] Social History Tobacco Use Types Packs/Day Years [...] Upcoming Encounters Date Type Department Care Team ([facility] Contact Info) Description 05/26/2025 1:00 PM EDT Telemedicine [facility] [address] [place] [address] [phone] Roberto Koehler MD [address] [place], [place] [phone] documented as of this encounter Procedures Procedure Name Priority Date/Time Associated Diagnosis Comments HM COLONOSCOPY Routine 12/22/2012 documented in this encounter Results * Hm Colonoscopy (12/22/2012) Colonoscopy Normal Normal 12/22/2012 Alexa Carmen Ng - 12/22/2012 3:04 PM EDT Recommended 10 year follow up us Historical Provider HEALTH MAINTENANCE Final Result documented in this encounter Visit Diagnoses Not on filedocumented in this encounter Care Teams Research Recruiter Relationship Specialty Start Date End Date Roberto Koehler MD [address] [place] [address] [phone] PCP - General Internal Medicine 06/29/14 documented as of this encounter
--- OUTSIDE RECORDS SUMMARY | 2025-05-17 12:39 | XMS_ITS | Encounter Summary ---
Author Organization [employer] Address [address] [facility] [address] [place] [address] Care Team Providers Care Message And Delivery Service Pricer Name Role Phone Roberto Koehler MD Primary Care Provide r Reason for Visit * Reason Comments Med Refill Encounter Details Date Type Department Care Team ([facility] Contact Info) Description 09/03/2022 Refill [facility] [address] [place] [address] [phone] Reina Ag MD [address] [place], [place] [phone] Social History Tobacco Use Types Packs/Day Years [...] Upcoming Encounters Date Type Department Care Team ([facility] Contact Info) Description 05/26/2025 1:00 PM EDT Telemedicine [facility] [address] [place] [address] [phone] Roberto Koehler MD [address] [place], [place] [phone] documented as of this encounter Visit Diagnoses Not on filedocumented in this encounter Care Teams Message And Delivery Service Pricer Relationship Specialty Start Date End Date Roberto Koehler MD [address] [place] [phone] PCP - General Internal Medicine 06/29/14 documented as of this encounter
--- OUTSIDE RECORDS SUMMARY | 2025-05-17 12:39 | XMS_ITS | Encounter Summary ---
Author Organization [employer] Address [address] [facility] [address] [place] [address] Care Team Providers Care [employer] Police Officer Name Role Phone Roberto Koehler MD Primary Care Provide r Reason for Visit * Reason Comments Med Refill Encounter Details Date Type Department Care Team ([facility] st Contact Info) Description 12/29/2023 Refill [facility] [address] [place], [place] [phone] Roberto Koehler MD [address] [place], [place] [phone] Rash Social History Tobacco Use Types Packs/Day [...] Description 05/26/2025 1:00 PM EDT Telemedicine [facility] [address] [place] [address] Roberto Koehler MD [address] [place] [address] documented as of this encounter Visit Diagnoses Diagnosis Rash Rash and other nonspecific skin eruption documented in this encounter Additional Health Concerns Assessment Noted Time PHQ-9 Depression Total Score: 1 12/18/19 24 10:46 AM EDT documented as of this encounter Care Teams [employer] Police Officer Relationship Specialty Start Date End Date Roberto Koehler MD [address] [place] [address] PCP - General Internal Medicine 06/29/14 documented as of this encounter
--- OUTSIDE RECORDS SUMMARY | 2025-05-17 12:39 | XMS_ITS | Encounter Summary ---
Author Organization [employer] Address [address] [facility] 7[address] [place] [address] Care Team Providers Care Supervisor [employer] Name Role Phone Roberto Koehler MD Primary Care Provide r Reason for Visit * Reason Onset Date Comments Med Refill 09/09/2023 Encounter Details Date Type Department Care Team ([facility] st Contact Info) Description 09/09/2023 Telephone [facility] [address] [place] [address] [phone] Roberto Koehler MD [address] [place], [place] [phone] Med Refill Social History Tobacco Use Types [...] to: [id number] - [place], [place] - [address] [facility] documented in this encounter Plan of Treatment Upcoming Encounters Date Type Department Care Team (Late st Contact Info) Description 05/26/2025 1:00 PM EDT Telemedicine [facility] [address] [place] [address] Roberto Koehler MD [address] [place] [address] documented as of this encounter Visit Diagnoses Not on filedocumented in this encounter Care Teams Supervisor [employer] Relationship Specialty Start Date End Date Roberto Koehler MD [address] [place] [address] [phone] PCP - General Internal Medicine 06/29/14 documented as of this encounter
[2025-05-17 16:14] LABS: Anion Gap 13 (12-20); Blood Urea Nitrogen 18 mg/dL (9-16); Calcium 9.7 mg/dL (8.4-10.2); Carbon Dioxide 31 mmol/L (22-29); Chloride 105 mmol/L (96-108); Estimated Glomerular Filt Rate > 60; Potassium 3.1 mmol/L (3.3-5.1); Sodium 146 mmol/L (135-145)
== END 2025-05-17 11:14 | disposition home or self-care (01) ==
LOC: HO.HHCL 11:13
PROVIDERS: PCP Internal Medicine; Visit Provider Internal Medicine
DX: I10 Essential (primary) hypertension (principal); E03.9 Hypothyroidism, unspecified
CPT/HCPCS: 36415; 80048; 84443

== ENCOUNTER 2025-05-25 10:25 | Outpatient (REF) | payer MEDICAID, SELFPAY ==
[2025-05-25 14:07] LABS: Anion Gap 12 (12-20); Blood Urea Nitrogen 15 mg/dL (9-16); Calcium 9.2 mg/dL (8.4-10.2); Carbon Dioxide 31 mmol/L (22-29); Chloride 106 mmol/L (96-108); Estimated Glomerular Filt Rate > 60; Potassium 3.1 mmol/L (3.3-5.1); Sodium 146 mmol/L (135-145)
== END 2025-05-25 10:26 | disposition home or self-care (01) ==
LOC: HO.HHCL 10:25
PROVIDERS: PCP Family Medicine; Visit Provider Family Medicine
DX: E87.6 Hypokalemia (principal)
CPT/HCPCS: 36415; 80048